=== PATIENT | male | born 1975 | race Caucasian/White ===

== ENCOUNTER 2020-11-05 11:56 | Emergency (ER) | payer OTHER, SELFPAY ==
[2020-11-05 12:07] VITALS: BP 130/74; PULSE 84; RESP 18; TEMP 36.3; O2SAT 98; BMI 32.3
== END 2020-11-05 13:15 | disposition left against medical advice (07) ==
PROVIDERS: Emergency Provider Emergency Medicine; PCP Internal Medicine
DX: M54.5 Low back pain (principal)
CPT/HCPCS: 99282

== ENCOUNTER 2022-05-06 13:49 | Emergency (ER) | payer MEDICAID, SELFPAY ==
--- NOTE | ~2022-05-06 | XR_ITS ---
EXAMINATION: XR HAND, RIGHT CLINICAL INFORMATION: Dog bite right thumb. COMPARISON: None TECHNIQUE: PA, lateral, and oblique views of the right hand. FINDINGS: No radiopaque foreign body. No air in the soft tissue. No acute osseous abnormality. No dislocation. XR/XR hand RT 2V IMPRESSION: Normal right hand.
[2022-05-06 13:54] VITALS: BP 142/103; PULSE 89; RESP 188; TEMP 36.8; O2SAT 98; BMI 39.0
[2022-05-06 14:00] VITALS: PULSE 90; O2SAT 98
[2022-05-06] MEDS: Ibuprofen 800 MG TABLET PO (14:40)
[2022-05-06] MEDS: Diphth,Pertus(ACell),Tet Adult 0.5 ML SYRINGE IM (14:41)
[2022-05-06 14:45] VITALS: BMI 40.7
--- NOTE | 2022-05-06 15:17 | ED.GENADULT ---
HPI - General Adult General Chief complaint: Animal Bite Stated complaint: DOG BITE R/HAND Time Seen by Provider: 05/06/22 13:59 Source: patient Mode of arrival: ambulatory Limitations: no limitations History of Present Illness HPI narrative: 46-year-old male presents to ED for right thumb dog bite. Patient states he was bit by his dog today. Patient states the attack was not provoked. He states patient has cancer may be affecting his brain. He states patient's dog not up-to-date with rabies Related Data Previous Rx's Medication Instructions Recorded amoxicillin 875 mg-potassium 1 tab PO Q12H 7 days #14 tabs 05/06/22 clavulanate 125 mg tablet naproxen 500 mg tablet 500 mg PO BID PRN pain 7 days #14 05/06/22 tabs Allergies Allergy/AdvReac Type Severity Reaction Status Date / Time No Known Allergies Allergy Unverified 05/22/20 15:10 Review of Systems Review of Systems: right thumb dog bite. Yes all other systems are reviewed and are negative [facility] Social History Social History Advance Directives: No Advance Directives Information Provided: No Physical Exam ED Vital Signs: Vital Signs - 24 hr 05/06/22 13:54 05/06/22 16:46 Temperature 98.3 F Pulse Rate 89 Respiratory Rate 188 H 16 Blood Pressure 142/103 H Pulse Oximetry 98 Oxygen Delivery Method Room Air BMI result Body Mass Index 40.7 Const General: cooperative, healthy appearing, comfortable, no acute distress, well developed, alert and awake Orientation/consciousness: oriented to person, oriented to place, oriented to time and patient oriented x3 HENMT Head: Yes normal to inspection, Yes No palpable skull fracture present, Yes normocephalic, Yes atraumatic and No abrasion Eyes General: appearance normal, both eyes and all related structures Neck Neck: Yes normal visual inspection, Yes full ROM, Yes no lymphadenopathy, Yes no meningeal signs, Yes trachea midline, Yes supple, No anterior neck swelling and No tender Chest Chest palpation & inspection: normal inspection of the chest and normal palpation of entire chest wall Resp Effort & Inspection: normal respiratory effort and able to speak in complete sentences Auscultation: clear to auscultation bilaterally Cardio Jugular venous distension: no JVD Heart sounds: S1 normal heart sound present and S2 normal heart sound present GI Inspection: Yes normal to inspection and No abdominal wall ecchymosis Palpation (GI): Soft to palpation, not firm, nontender, no guarding and not rigid General: No CVA tenderness and Yes no CVA tenderness Back/Spine/Pelvis Back: no CVA tenderness, No CVA tenderness and No back tenderness Skin General skin exam: no rashes or lesions noted and elasticity normal Neuro General: oriented to person, oriented to place, oriented to time, patient oriented x3, gait normal, tone normal and no meningeal signs Extrem Hand/finger images: 1. Dog bite into laceration. Tendon exposed. Not able to extend thumb above IP joint. Most likely extensor tendon injury. Capillary refills intact. Radial brachial ulnar pulse is intact. Rest of extremity normal 2. Laceration. Psych Appearance: grossly normal, well kempt and not disheveled Course Course Course Narrative: Tetanus and rabies vaccine ordered. Will consult orthopedic surgeon due to patient possibly have extensor tendon injury. Lower extremity does no fracture. Reevaluation(s) Reevaluation #1: Spoke with Orthopedic Dr. Bruner recommend loosely closing laceration with washout and discharged with antibiotics and follow-up with hand surgeon. 6 mL of 2% lidocaine used for anesthesia of right thumb. Laceration with tendon injury a cared had 3 sutures placed with size 4 nylon suture. Other laceration 3 sutures placed with size 4 nylon suture Time: 15:32 Medical Decision Making MDM Narrative Medical decision making narrative: Bug bite. Tendon injury of right thumb Discharge Plan Discharge Clinical Impression: Bite by animal, Dog bite, Injury of tendon of hand Patient Disposition: Home, Self-Care Instructions: Animal Bite (ED) Additional Instructions: History and physical exam of right thumb indicate tendon injury. You're sutures were loosely placed today so they can be reopened by hand surgeon for evaluation. Please be compliant with antibiotics. Return to [facility] for schedule rabies vaccine injection. Return to the ED for any redness, swelling, pus discharge, foul odor, fever, chills, bluish black discoloration, paralysis, numbness, severe pain, or any other concerning symptoms. 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
[2022-05-06] MEDS: Rabies Vaccine (PCEC)/PF 1 ML VIAL IM (15:49)
[2022-05-06] MEDS: Rabies Immune Globulin/PF 900 UNIT/3 ML VIAL 2648 UNIT IM (15:52)
[2022-05-06] MEDS: Lidocaine HCl 2 % MPF 5 ML VIAL 2 ML INFILTRATI ×4 (15:58)
[2022-05-06 16:46] VITALS: RESP 16
== END 2022-05-06 16:56 | disposition home or self-care (01) ==
PROVIDERS: Emergency Provider Student in an Organized Health Care Education/Training Program
DX: S61.051A Open bite of right thumb without damage to nail, initial encounter (principal); S66.221A Laceration of extensor muscle, fascia and tendon of right thumb at wrist and hand level, initial encounter; W54.0XXA Bitten by dog, initial encounter; Y93.9 Activity, unspecified; Y92.019 Unspecified place in single-family (private) house as the place of occurrence of the external cause; Y99.9 Unspecified external cause status
CPT/HCPCS: 12041; 73120; 90375; 90471; 90472; 90675; 90715; 96372; 99284

== ENCOUNTER 2022-05-11 14:30 | Outpatient (REF) | payer MEDICAID, SELFPAY | END 2022-05-11 14:31 | disposition home or self-care (01) | LOC: HO.MDS 14:30 | PROVIDERS: Visit Provider Physician Assistant | DX: Z29.14 Encounter for prophylactic rabies immune globulin (principal); S66.221D Laceration of extensor muscle, fascia and tendon of right thumb at wrist and hand level, subsequent encounter; S61.253D Open bite of left middle finger without damage to nail, subsequent encounter; W54.0XXD Bitten by dog, subsequent encounter; Z20.3 Contact with and (suspected) exposure to rabies | CPT/HCPCS: 90471; 90675 ==

== ENCOUNTER 2022-05-12 11:30 | Inpatient (IN) | payer MEDICAID, SELFPAY ==
[2022-05-12 13:23] VITALS: BMI 40.4
--- NOTE | 2022-05-12 13:45 | PHA.MEDREC ---
Pharmacy Consult ? Medication Reconciliation Pharmacy has completed the medication reconciliation. Pt picked up augmentin (#14 tabs x 7 days) and tramadol on 05/09/22 confirmed with Pharmacy.
[2022-05-12 13:50] LABS: COVID-19 Test Negative (Negative)
[2022-05-12 14:03] LABS: Creatinine Clr Calc Pharmacy 168.5; Estimated Glomerular Filt Rate > 60
[2022-05-12] MEDS: Lactated Ringers 1,000 ML 100 ML IVCONT (14:04)
[2022-05-12 14:08] VITALS: BP 130/75; PULSE 80; RESP 18; TEMP 36.3; O2SAT 96
--- NOTE | 2022-05-12 14:17 | PHA.PROG ---
Admission Date/Time: May 12, 2022 11:30 Indication: Dog bite Weight in k.7 kg Adjusted body weight in K.86 kg Eads body weight in K.3 kg Obesity Dosing Indication % IBW: 174% Serum Creatinine - Last 168 Hours 05/12/22 13:32 Creatinine 0.75 Estimated CrCl and GFR - Last 168 Hours 05/12/22 13:32 Estim Creat Clear Calc 168.5 Estimated GFR > 60 Vancomycin Loading Dose: 2000 mg Current Vancomycin Dosing Regimen: 1250 mg Q12H Date and Time for next Vancomycin Level to be drawn: 05/13 @ 1300 Pharmacist Comments on Vancomycin Plan: Patient is morbidly obese, therefore required careful monitoring. Patient scheduled to receive vancomycin 2000 mg loading dose on 05/12 @ 1400. Patient will start maintenance dose vancomycin 1250 mg Q12H on 05/13 @ 0300. Expected AUC 555 with a trough of 15.5. Trough to be drawn prior to 3rd. Trough is drawn early so that pharmacy is in house to examine level and adjust level if needed. Pharmacy will monitor renal function daily. Crystal Pearl PharmD Vancomycin dosing will take advantage of [employer] as a clinical decision support tool that uses Bayesian modeling to calculate individual patient's pharmacokinetic parameters and forecast the patient's drug concentration time course with the target goal AUC 24 range of 400 - 600 mg/L/hr.
[2022-05-12 14:18] LABS: Vancomycin Trough < 3.0 mcg/mL (10.0-20.0)
[2022-05-12 16:00] VITALS: BP 125/71; PULSE 73; RESP 18; TEMP 36.3; O2SAT 96
[2022-05-12 18:00] VITALS: BP 125/71; PULSE 73; RESP 18; TEMP 36.3; O2SAT 96
[2022-05-12] MEDS: oxyCODONE HCl Immed Release 5 MG TABLET PO ×2 (18:15→22:21)
[2022-05-12 20:00] VITALS: BP 137/83; PULSE 88; RESP 18; TEMP 36.6; O2SAT 98
[2022-05-12] MEDS: Acetaminophen 325 MG TABLET PO (22:21)
[2022-05-13] VITALS (32 sets, daily range): BP systolic 100–178; BP diastolic 65–94; PULSE 54–97; RESP 14–25; TEMP 36–36.7; O2SAT 93–99; BMI 42.4
[2022-05-13] MEDS: Lactated Ringers 1,000 ML 100 ML IVCONT ×3 (02:55→19:33)
[2022-05-13] MEDS: vancomycin HCL 1,250 MG in 0.9 % Sodium Chloride 250 ML 166.67 MG IV ×2 (02:59→17:15)
[2022-05-13 06:54] LABS: MANUAL DIFF FLAG NO
[2022-05-13 07:10] LABS: Basophils Absolute Auto 0.1 X10*3/uL (0.0-0.2); Basophils Percent Auto 0.5 % (0-2); Eosinophils Absolute Auto 0.3 X10*3/uL (0.0-0.4); Eosinophils Percent Auto 2.7 % (0-4); Hematocrit 41.9 % (42.0-52.0); Imm Gran Abs Auto 0.06 X10*3/uL (0.00-0.03); Imm Gran Pct Auto 0.6 % (0.0-0.4); Lymphocytes Absolute Auto 2.6 X10*3/uL (1.2-4.9); Lymphocytes Percent Auto 27.3 % (20-40); Mean Corpuscular Hemoglobin 26.1 pg (27.0-33.0); Mean Platelet Volume 10.5 fL (9.4-12.4); Monocytes Absolute Auto 0.9 X10*3/uL (0.1-1.2); Monocytes Percent Auto 8.8 % (2-11); Neutrophils Absolute Auto 5.8 x10*3/uL (2.0-8.3); Neutrophils Percent Auto 60.1 % (45-73); Platelet Count 278 X10*3/uL (160-400); Red Blood Count 4.99 X10*6/uL (4.60-5.80); Red Cell Distribution Width 13.6 % (11.0-16.0); White Blood Count 9.6 X10*3/uL (4.8-10.8)
[2022-05-13 07:33] LABS: Alanine Aminotransferase 15 U/L (0-40); Albumin Level 3.6 g/dL (3.5-5.0); Alkaline Phosphatase 71 U/L (39-117); Anion Gap 15 (12-20); Aspartate Amino Transferase 13 U/L (5-37); Bilirubin Total < 0.2 mg/dL (0.0-1.0); Blood Urea Nitrogen 15 mg/dL (9-16); Calcium 8.5 mg/dL (8.4-10.2); Carbon Dioxide 29 mmol/L (22-29); Chloride 102 mmol/L (96-108); Estimated Glomerular Filt Rate > 60; Glucose Random 100 mg/dL (60-115); Potassium 4.5 mmol/L (3.3-5.1); Sodium 141 mmol/L (135-145)
--- NOTE | 2022-05-13 10:43 | P.CONAN_ITS ---
HPI - Anesthesia Eval Consult details Narrative: 46 yo male patient for I&D of Right thumb PMFSH Active Problems Active Problems: All Active Problems (Updated 05/12/22 @ 09:46 by Sammy Pedro) Dog bite of right thumb with infection (Acute) Increased BMI Snores. Scheduled for sleep study in June Past Medical History Medical History Hypercholesteremia Family History Family history of problems with anesthesia: No Surgical History History of Problems with Anesthesia: No Social History Social History Household Members: Spouse and Children Housing: House Do you presently have visiting nurse or other home services: No Patient Tobacco Use Status: Never used Tobacco e-Cigarette/Vaping Use: Never Used Use of substances other than those prescribed or required for medical reasons: No Currently Displaying Signs/Symptoms of Drug Intoxication Withdrawal: No Have you been hit, kicked, punched, or otherwise hurt by someone within the past year? If so, by whom?: No Do you feel safe in your current relationship?: No Is there a partner from a previous relationship who is making you feel unsafe now?: No Are you made to feel afraid or neglected: No Are you DNR?: No Advance Directives: No Advance Directives Information Provided: No Do you have thoughts of harming others: None Recently lost weight without trying: No Nutrition Risks: No Nutritional Risk Poor oral hygiene: No Meds Allergies Allergy/AdvReac Type Severity Reaction Status Date / Time No Known Allergies Allergy Verified 05/12/22 09:03 Active Medications: Current Medications Acetaminophen (Acetaminophen 325 Mg Tablet) 325 mg PO Q4H PRN PRN Reason: Pain, Mild (Pain Scale 1-3) Last Admin: 05/12/22 22:21 Dose: 325 mg Vancomycin HCl 1,250 mg/ (Sodium Chloride) 250 mls @ 166.667 mls/hr IV Q12H REPLACED BY [facility] Last Infusion: 05/13/22 04:34 Dose: Infused Lactated Ringer's (Lr) 1,000 mls @ 100 mls/hr IVCONT .Q10H REPLACED BY [facility] Last Infusion: 05/13/22 04:34 Dose: 100 mls/hr Omeprazole (Omeprazole 20 Mg Capsule.) 20 mg PO DAILY@0630 REPLACED BY [facility] Last Admin: 05/13/22 05:56 Dose: Not Given Oxycodone HCl (Oxycodone Hcl Immed Release 5 Mg Tablet) 5 mg PO Q4H PRN PRN Reason: Pain, Moderate (Pain Scale 4-6 Last Admin: 05/12/22 22:21 Dose: 5 mg Pharmacy Consult (Consult Rx Vancomycin Dosing) 1 each MISCELLANE DAILY PRN PRN Reason: Consult order Sodium Chloride (0.9 % Sodium Chloride Flush 3 Ml Syringe) 3 ml IVFLUSH QSHIFT REPLACED BY [facility] Last Admin: 05/13/22 09:19 Dose: Not Given Home Medications Medication Instructions Recorded Confirmed Last Taken Type omeprazole 20 mg capsule,delayed 20 mg PO DAILY@62905/12/22 05/12/22 05/12/22 History release tramadol 50 mg tablet 50 mg PO Q4H PRN Pain 05/12/22 05/12/22 05/12/22 History Exam Exam Date and Time: May 13, 2022 104 Height,Weight and Vital Signs: Height 5 ft 11 in Weight 131.7 kg Last Vital Signs Temp 96.8 F 05/13/22 07:55 Pulse 54 05/13/22 07:55 Resp 16 05/13/22 07:55 BP 134/88 05/13/22 07:55 Pulse Ox 93 05/13/22 07:55 O2 Del Method 05/13/22 07:55 Vital Signs Temp Pulse Resp BP Pulse Ox O2 Del Method 05/13/22 10:58 98.1 F 72 18 127/80 99 Room Air 05/13/22 07:55 96.8 F 54 16 134/88 93 Room Air 05/13/22 04:00 97.4 F 60 17 136/67 95 Room Air 05/13/22 00:00 97 F 86 18 178/90 H 97 Room Air 05/12/22 20:00 97.9 F 88 18 137/83 98 Room Air 05/12/22 18:00 97.4 F 73 18 125/71 96 Room Air 05/12/22 16:00 97.4 F 73 18 125/71 96 Room Air 05/12/22 14:08 97.4 F 80 18 130/75 96 Room Air Pertinent Lab Results Pertinent Lab Results: Laboratory Tests 05/12/22 05/12/22 05/12/22 13:24 13:32 13:32 WBC RBC Hgb Hct MCV MCH MCHC RDW Plt Count MPV Immature Gran % (Auto) Neut % (Auto) Lymph % (Auto) [place] % (Auto) Eos % (Auto) Baso % (Auto) Lymph # (Auto) [place] # (Auto) Eos # (Auto) Baso # (Auto) Abs Immat Gran (auto) Absolute Neuts (auto) Absolute Nucleated RBC Nucleated RBC % (auto) Sodium Potassium Chloride Carbon Dioxide Anion Gap BUN Creatinine 0.75 Estim Creat Clear Calc 168.5 Estimated GFR > 60 Random Glucose Calcium Total Bilirubin AST ALT Alkaline Phosphatase Total Protein Albumin Vancomycin Trough < 3.0 L COVID-19 ([facility]) Negative COVID-19 Clin Com See Note 05/13/22 05/13/22 06:10 06:10 WBC 9.6 RBC 4.99 Hgb 13.0 L Hct 41.9 L MCV 84.0 MCH 26.1 L MCHC 31.0 RDW 13.6 Plt Count 278 MPV 10.5 Immature Gran % (Auto) 0.6 H Neut % (Auto) 60.1 Lymph % (Auto) 27.3 [place] % (Auto) 8.8 Eos % (Auto) 2.7 Baso % (Auto) 0.5 Lymph # (Auto) 2.6 [place] # (Auto) 0.9 Eos # (Auto) 0.3 Baso # (Auto) 0.1 Abs Immat Gran (auto) 0.06 H Absolute Neuts (auto) 5.8 Absolute Nucleated RBC 0.000 Nucleated RBC % (auto) 0.0 Sodium 141 Potassium 4.5 Chloride 102 Carbon Dioxide 29 Anion Gap 15 BUN 15 Creatinine 0.79 Estim Creat Clear Calc 160.0 Estimated GFR > 60 Random Glucose 100 Calcium 8.5 Total Bilirubin < 0.2 AST 13 ALT 15 Alkaline Phosphatase 71 Total Protein 6.0 L Albumin 3.6 Vancomycin Trough COVID-19 ([facility]) COVID-19 Clin Com Airway Mallampati Class: III TM Dist: >3cm Neck ROM: Full Loose/Missing/Broken Teeth: Yes (Broken back- fillings fell out) Heart: RRR Lungs: CTAB Assessment and Plan Assessment Anesthesia Assessment: Anesthesia Plan Discussed and Chart Reviewed Final Anesthetic Review Family History of Problems with Anesthesia: No History of Problems with Anesthesia: No NPO: Yes ASA Class: III Final Preanesthetic Review: No Changes in Pt Med Stat, Meds/Allgs Chart Reviewed, Consent Obtained/Reviewed and Anes Risks/Benef Reviewed Patient Risk: Intermediate Procedure Risk: Low Assessment/Block/Sedation in SS: Assess/Block/Sedation-SS Anesthetic Plan Anesthetic Plan: GA Disposition: Standard PACU and Inp. Admit - Standard Bed
--- NOTE | 2022-05-13 13:12 | P.OP_ITS ---
Operative Note Operative Note Date of Service: 05/13/22 Narrative: Operative Note Narrative: Preop diagnosis: 1. Right thumb infection status post dog bite Postop diagnosis: Same 1. Right thumb infection status post dog bite 2. Right thumb septic IP joint 3. Right thumb nail bed injury 4. Right thumb open distal phalanx tuft fracture 5. Right thumb extensor pollicis longus tendon laceration 6. Right thumb IP joints radial collateral ligament tear Procedure: 1. Right thumb infection I&D 2. Right thumb septic IP joint I&D 3. Nail plate removal 4. I and D of open distal phalanx fracture with acute infection Surgeon: Carissa Serrato MD Anesthesia: General Anesthesia Findings: 1. Right thumb infection with copious yellow creamy purulent drainage status post dog bite ?2. Right thumb septic IP joint ?3. Right thumb nail bed injury ?4. Right thumb open distal phalanx tuft fracture, with purulent drainage ?5. Right thumb extensor pollicis longus tendon laceration ?6. Right thumb IP joints radial collateral ligament tear 7. Poor cap refill/ vs eccymosis to the tip of the thumb Implants: none Tourniquet time: 0 minutes EBL: 5.0 ml Specimen: cultures of purulent drainage including from the IP joint sent x2 Drains: None Complications: None Disposition: Brought to the recovery room in stable condition Plan: - admit back to floor for IV antibiotics -wound check tomorrow - anticipate possible discharge in approx 2 days If doing well -check cultures - wound check within a few days after discharge -consult infectious disease regarding acute septic IP joint and open distal phalanx fracture, anticipate prolonged course of antibiotics - Anticipate return to the operating room perhaps in about 2 weeks for EPL tendon repair, and possible repair of the radial collateral ligament if neededand infection resolved. Indications: The patient is a 46 year old man with a right thumb infection status post dog bite . The risks and benefits of operative treatment, including but not limited to risk of damage to blood vessels, nerves, tendons, infection, recurrence, persistent pain or numbness, incomplete resolution of preoperative symptoms, or need for further surgery were discussed with the patient and they wished to proceed with surgery. Procedure: Once consent was obtained patient was brought back to the operating suite and placed in the operating table in a supine position. anesthesia was administered by the anesthesia team. A tourniquet was applied to the proximal aspect of the right upper extremity and the limb was prepped and draped in a standard surgical fashion. The tourniquet was not inflated. Sutures were removed from the wound over the dorsal aspect of the IP joint and then over the slightly more distal wound that extended around from dorsal to the radial side of the distal phalanx and IP joint. There was copious yellow creamy purulent drainage from these wounds. The IP joint was also noted to be on stable with easy opening on the radial side and dorsally. He was also noted to have a crack in the nail plate on the radial side with purulent drainage from beneath the nail plate. Unfortunately, I saw that he has a nondisplaced tuft fracture of the distal phalanx which is now considered an open infected fracture. The nail plate was then removed using a Paterson elevator. I then appreciated an oblique nailbed injury extending from the radial corner of the eponychium. Again there was creamy yellow purulence in this area and a visible and palpable defect in the cortex of the bone. He was also noted to have 2 puncture wounds on the volar aspect of the pad, 1 centered over the pad and 1 on the ulnar volar aspect of the distal phalanx. A 1 cm incision was made centered over the most central bite wound on the pad using a 15. Blade. This allowed me to dissect into the pad of the thumb where there was some watery purulent drainage. The bite wounds were carefully debrided of devitalized tissue using a 15. Blade and also iris scissors. All wounds were copiously irrigated with normal saline both using a bulb syringe and also using an Angiocath with a 10 mL syringe to appropriately irrigate small wounds and tight places. The cortical defect an open fracture were appreciated beneath the nail bed injury and this was debrided with a Paterson elevator and a small curette. The bone in the nail bed injury were also co piously irrigated with normal saline. The IP joint was copiously irrigated, and indeed the fluid passed between the more radial and more dorsal bite wounds freely. The extensor pollicis longus tendon was noted to be lacerated dorsal to the IP joint in the more dorsal bite wound. Once satisfied with our I&D the dorsal and radial bite wounds were loosely closed using some 4-0 nylon suture. These wounds were loosely closed, and the other wounds were left open to facilitate drainage. It was appreciated that the very tip of the thumb was a little more bluish purple than pink. This could be secondary to a diminished blood supply from this injury, or also perhaps secondary to the Ecchymosis from the distal phalanx tuft fracture.. a digital block was performed using some 0.5% plain ropivacaine for postop pain control. A soft dressing was then applied. The patient appears to have tolerated the procedure well and with no complications.
--- NOTE | 2022-05-13 13:12 | MHC.SHP ---
Pre-Procedural Eval Section A Date of Service: 05/13/22 The patient is an INPATIENT: Yes Changes since office visit: No Cold of Flu in the past 2 weeks, No New Medical Problems, No Changes in Medication and No Patient answered all questions The History & Physical has been completed within 30 days and I have reviewed it.: Yes Section B Chief Complaint: R thumb infection Allergies: Allergies Allergy/AdvReac Type Severity Reaction Status Date / Time No Known Allergies Allergy Verified 05/12/22 09:03 Plan I have reviewed the history and physical and performed a pertinent physical examination on my patient. No changes have occurred unless specified.
[2022-05-13 17:13] LABS: Vancomycin Trough 7.1 mcg/mL (10.0-20.0)
--- NOTE | 2022-05-13 17:26 | HE.PHANOTE ---
vancomycin dosing addendum Patient level 7.1 today. Patient's level was drawn 3 hours late because patient was in surgery. The actaully level prior to next dose is most likely higher than 7.1. Patient also only received one loading dose (2g) and one maintenance dose (1250 mg) therefore patient is not at steady state yet. Level was drawn after 2 dose for pharamcy to examine while in house. Will continue current regiment for 2 more dose then get another vancomycin level 05/14/22 @ 1500. Vancomycin times were adjust as dose was given late to allow for level to be drawn after patient was back from surgery. Patient is obese, and requires obesity dose. Vancomycin 1250 mg Q12H has an expected AUC of 432. Myke VillelaD
[2022-05-13] MEDS: Ketorolac Tromethamine 30 MG/ML VIAL 15 MG IVPUSH (18:50)
--- NOTE | 2022-05-13 19:41 | PM.CCHP ---
History of Present Illness Date of Service: 05/13/22 Attending physician on admission: Gerson Rankin Chief Complaint: Right thumb infection 46 year old male with past medical history of GERD and hypercholesterolemia who sustained a dog bite on 05/06/22 on Right thumb and was scheduled for I&D with Dr Serrato. Post surgical procedure patient lethargic, hypoxic requiring CPAP.? Patient will be admitted to ICU for acute hypoxic failure requiring CPAP? Review of Systems Review of Systems: Constitutional: No weight loss, fever, chills, weakness or fatigue. Eyes: No visual loss, blurred vision, double vision or yellow sclera ENT: No hearing loss, sneezing, congestion, runny nose or sore throat. Respiratory: No SOB. No hemoptysis. Cardiovascular:No chest pain. No palpitations. Gastrointestinal: No anorexia, nausea, vomiting or diarrhea. No abdominal pain or blood in stool. Genitourinary: No urinary frequency or incontinence. Neurologic: No headache, dizziness, syncope, unilateral weakness, ataxia, numbness or tingling in the extremities. No change in bowel or bladder control. Musculoskeletal: No muscle pain, back pain, joint pain or stiffness. Hematologic/Lymphatics: No bleeding or bruising. No painful lymph nodes. Endocrine: No reports of sweating. No cold or heat intolerance. REPLACED BY [facility] Past Medical History Medical History Hypercholesteremia Social History Social History Household Members: Spouse and Children Housing: House Do you presently have visiting nurse or other home services: No Patient Tobacco Use Status: Never used Tobacco e-Cigarette/Vaping Use: Never Used Use of substances other than those prescribed or required for medical reasons: No Currently Displaying Signs/Symptoms of Drug Intoxication Withdrawal: No Have you been hit, kicked, punched, or otherwise hurt by someone within the past year? If so, by whom?: No Do you feel safe in your current relationship?: No Is there a partner from a previous relationship who is making you feel unsafe now?: No Are you made to feel afraid or neglected: No Are you DNR?: No Advance Directives: No Advance Directives Information Provided: No Do you have thoughts of harming others: None Recently lost weight without trying: No Nutrition Risks: No Nutritional Risk Poor oral hygiene: No Meds Allergies Allergy/AdvReac Type Severity Reaction Status Date / Time No Known Allergies Allergy Verified 05/12/22 09:03 Active Medications: Current Medications Acetaminophen (Acetaminophen 325 Mg Tablet) 325 mg PO Q4H PRN PRN Reason: Pain, Mild (Pain Scale 1-3) Last Admin: 05/12/22 22:21 Dose: 325 mg Acetaminophen (Acetaminophen 325 Mg Tablet) 975 mg PO ONCE PRN PRN Reason: Pain, Mild (Pain Scale 1-3) Enoxaparin Sodium (Enoxaparin Sodium 40 Mg/0.4 Ml Syringe) 40 mg SUBCUT Q24H [facility] Vancomycin HCl 1,250 mg/ (Sodium Chloride) 250 mls @ 166.667 mls/hr IV Q12H [facility] Stop: 05/13/22 20:00 Last Infusion: 05/13/22 19:31 Dose: Infused Lactated Ringer's (Lr) 1,000 mls @ 100 mls/hr IVCONT .Q10H [facility] Last Infusion: 05/13/22 19:36 Dose: 0 mls/hr Vancomycin HCl 1,250 mg/ (Sodium Chloride) 250 mls @ 166.667 mls/hr IV Q12H [facility] Piperacillin Sod/Tazobactam (Sod 4.5 gm/ Sodium Chloride) 100 mls @ 200 mls/hr IV Q6H [facility] Omeprazole (Omeprazole 20 Mg Capsule.Dr) 20 mg PO DAILY@0630 [facility] Last Admin: 05/13/22 05:56 Dose: Not Given Oxycodone HCl (Oxycodone Hcl Immed Release 5 Mg Tablet) 5 mg PO Q4H PRN PRN Reason: Pain, Moderate (Pain Scale 4-6 Last Admin: 05/12/22 22:21 Dose: 5 mg Pharmacy Consult (Consult Rx Vancomycin Dosing) 1 each MISCELLANE DAILY PRN PRN Reason: Consult order Sodium Chloride (0.9 % Sodium Chloride Flush 3 Ml Syringe) 3 ml IVFLUSH QSHIFT [facility] Last Admin: 05/13/22 19:19 Dose: Not Given Home Medications Medication Instructions Recorded Confirmed Last Taken Type omeprazole 20 mg capsule,delayed 20 mg PO DAILY@0630 05/12/22 05/12/22 05/12/22 History release tramadol 50 mg tablet 50 mg PO Q4H PRN Pain 09/07/22 09/07/22 09/07/22 History Physical Exam Vital Signs: Vital Signs: Last Vital Signs Temp 97.7 F 05/13/22 19:30 Pulse 68 05/13/22 19:30 Resp 16 05/13/22 19:30 BP 119/82 05/13/22 19:30 Pulse Ox 97 05/13/22 19:30 O2 Del Method 05/13/22 17:30 O2 Flow Rate 4 05/13/22 16:45 BMI result Body Mass Index 40.4 Constitutional: Alert, in no distress. Sitting comfortably on the hospital bed. Mental Status: Oriented to person, place and time. Head: Normocephalic. Eyes: Pupils are equal, round and reactive to light. Extraocular muscles intact. Ear, Nose and Throat: Oropharynx clear, mucous membranes moist. Ears and nose without masses, lesions or deformities. Trachea midline. Neck: Supple, Full range of motion. Respiratory: Lungs CTA. On AVAP. No incraese work of breathing ? Cardiovascular: Sinus Rhytmn. S1 S2 regular. No murmurs, rubs or gallops. Gastrointestinal: Abdomen soft, non-tender, non-distended. Normal bowel sounds. No pulsatile mass. No hepatosplenomegaly. Genitourinary: No costovertebral angle tenderness. Neurologic: Cranial nerves II-XII grossly intact. No focal neurological deficits. Moves all extremities spontaneously. Sensation intact bilaterally. Skin: Right hand covered by surgical dressing. Musculoskeletal: No cyanosis or clubbing. No gross deformities. Normal range of motion. Heme/Lymphatics/Immun: Palpation of neck reveals no swelling or tenderness of neck nodes. Psychiatric: Normal mood and affect Results Labs CBC and Chem 7: 05/13/22 06:10 05/13/22 06:10 Labs: Laboratory Results - last 24 hr 05/13/22 05/13/22 05/13/22 06:10 06:10 16:45 MCV 84.0 MCH 26.1 L MCHC 31.0 RDW 13.6 Plt Count 278 MPV 10.5 Immature Gran % (Auto) 0.6 H Neut % (Auto) 60.1 Lymph % (Auto) 27.3 [place] % (Auto) 8.8 Eos % (Auto) 2.7 Baso % (Auto) 0.5 Lymph # (Auto) 2.6 [place] # (Auto) 0.9 Eos # (Auto) 0.3 Baso # (Auto) 0.1 Abs Immat Gran (auto) 0.06 H Absolute Neuts (auto) 5.8 Absolute Nucleated RBC 0.000 Nucleated RBC % (auto) 0.0 Anion Gap 15 Estim Creat Clear Calc 160.0 Estimated GFR > 60 Random Glucose 100 Calcium 8.5 Total Bilirubin < 0.2 AST 13 ALT 15 Alkaline Phosphatase 71 Total Protein 6.0 L Albumin 3.6 Vancomycin Trough 7.1 L Assessment and Plan (1) Dog bite of right thumb with infection: Status: Acute (2) Acute respiratory failure with hypoxemia: Status: Acute Plan 46 year old male with past medical history of GERD and hypercholesterolemia who sustained a dog bite on 05/06/22 on Right thumb and was scheduled for I&D with Dr Serrato today. Requiring CPAP for acute resp failure Neuro:?? No acute issues? Cardiac:? No acute issues? Pulmonary:?? Acute hypoxic respiratory failure- Likely from sedation. Patient much improved since arrival to ICU. Will order ABGs. Wean off as tolerated? Renal:? No acute issues? GI:? No acute issues.? Endo:? No acute issues.?? ID: Right thumb infection, from dog bite s/p I&D. Will cover with Zosyn and vanco.? Heme/Onc:?? ?No acute issues? Psych:? No acute issues? Miscellaneous:? No acute issues. Prophylaxis:? Lovenox, No GI prophylaxis at this time? Diet: ? NPO while on PAP? CODE: FULL Critical care time: 30x min of critical care time Case discussed with attending Dr Rankin Critical Care Time Critical Care Time (minutes): 30
[2022-05-13] MEDS: Enoxaparin Sodium 40 MG/0.4 ML SYRINGE SUBCUT (19:52)
[2022-05-13] MEDS: Piperacillin Sodium/Tazobactam 4.5 GM in 0.9 % Sodium Chloride 100 ML IV (19:52)
[2022-05-13 20:01] LABS: ABG Base Excess -1.3 mmol/L; ABG HCO3 22 mmol/L (22-26); ABG pCO2 34 mmHg (32-45); ABG pH 7.42 (7.35-7.45); ABG pO2 75 mmHg (83-108)
[2022-05-13 23:44] LABS: ABG Refer to POC result
[2022-05-14] VITALS (15 sets, daily range): BP systolic 123–158; BP diastolic 65–81; PULSE 57–85; RESP 15–26; TEMP 36–36.7; O2SAT 94–99; BMI 41.5
[2022-05-14] MEDS: 0.9 % Sodium Chloride Flush 3 ML SYRINGE IVFLUSH ×4 (03:43→20:34)
[2022-05-14] MEDS: Piperacillin Sodium/Tazobactam 4.5 GM in 0.9 % Sodium Chloride 100 ML IV ×3 (03:43→20:33)
[2022-05-14] MEDS: Acetaminophen 325 MG TABLET 975 MG PO (04:08)
[2022-05-14] MEDS: Omeprazole 20 MG CAPSULE.DR PO (04:28)
[2022-05-14] MEDS: vancomycin HCL 1,250 MG in 0.9 % Sodium Chloride 250 ML 166.67 MG IV (04:29)
[2022-05-14 05:42] LABS: VBG HCO3 22 mmol/L (22-26); VBG pCO2 29 mmHg; VBG pH 7.48 (7.32-7.43); VBG pO2 78 mmHg
[2022-05-14 05:44] LABS: MANUAL DIFF FLAG NO
[2022-05-14 05:48] LABS: Basophils Absolute Auto 0.1 X10*3/uL (0.0-0.2); Basophils Percent Auto 0.5 % (0-2); Eosinophils Absolute Auto 0.2 X10*3/uL (0.0-0.4); Eosinophils Percent Auto 2.3 % (0-4); Hematocrit 40.7 % (42.0-52.0); Hemoglobin 12.8 g/dl (14.0-18.0); Imm Gran Abs Auto 0.06 X10*3/uL (0.00-0.03); Imm Gran Pct Auto 0.7 % (0.0-0.4); Lymphocytes Absolute Auto 1.9 X10*3/uL (1.2-4.9); Lymphocytes Percent Auto 20.1 % (20-40); Mean Corpuscular HGB Conc 31.4 g/dl (31.0-36.0); Mean Corpuscular Hemoglobin 26.3 pg (27.0-33.0); Mean Corpuscular Volume 83.7 fL (80.0-98.0); Monocytes Absolute Auto 0.7 X10*3/uL (0.1-1.2); Monocytes Percent Auto 7.7 % (2-11); Neutrophils Absolute Auto 6.3 x10*3/uL (2.0-8.3); Neutrophils Percent Auto 68.7 % (45-73); Platelet Count 276 X10*3/uL (160-400); Red Blood Count 4.86 X10*6/uL (4.60-5.80); Red Cell Distribution Width 13.6 % (11.0-16.0); White Blood Count 9.2 X10*3/uL (4.8-10.8)
[2022-05-14 06:07] LABS: Alanine Aminotransferase 18 U/L (0-40); Albumin Level 3.4 g/dL (3.5-5.0); Alkaline Phosphatase 69 U/L (39-117); Anion Gap 16 (12-20); Aspartate Amino Transferase 14 U/L (5-37); Bilirubin Total 0.2 mg/dL (0.0-1.0); Blood Urea Nitrogen 13 mg/dL (9-16); Calcium 8.5 mg/dL (8.4-10.2); Carbon Dioxide 27 mmol/L (22-29); Chloride 103 mmol/L (96-108); Creatinine Clr Calc Pharmacy 154.1; Estimated Glomerular Filt Rate > 60; Glucose Random 98 mg/dL (60-115); Magnesium 2.1 mg/dL (1.6-2.6); Phosphorus 4.5 mg/dL (2.7-4.5); Potassium 4.6 mmol/L (3.3-5.1); Sodium 141 mmol/L (135-145); Total Protein 5.8 g/dL (6.5-8.0)
[2022-05-14 07:02] LABS: Venous Blood Gas Refer to POC result
--- NOTE | 2022-05-14 07:09 | HE.PHANOTE ---
Addendum entered by Mauricio Bauer [facility] 05/14/22 18:17: TROUGH CAME BACK AT 7.5. DOSE INCREASED TO 1500 Q 12. NEXT TROUGH AT 10 @ 1700 Original Note: RE BRIGITTEO CONTINUE CURRENT DOSE; NEXT TROUGH DUE @1500, MAY NEED TO INCREASE DOSE TO 1500 Q12H THANKS HANK
--- NOTE | 2022-05-14 08:01 | HO.POSTANES ---
Post Anesthesia Evaluation Post Anesthesia Evaluation Vital Signs: Vital Signs Temp Pulse Resp BP Pulse Ox O2 Del Method O2 Flow Rate 05/14/22 07:00 60 23 H 123/68 97 BiPAP 05/14/22 04:59 21 H 05/14/22 06:00 69 15 99 CPAP 05/14/22 04:52 62 21 H 138/76 95 CPAP 05/13/22 23:15 25 H 05/14/22 03:53 97.3 F 59 20 149/71 H 95 CPAP 05/14/22 02:55 57 23 H 95 CPAP 05/14/22 01:56 68 24 H 96 Nasal Cannula 2 05/14/22 00:53 65 21 H 140/66 H 95 CPAP 05/13/22 23:58 71 21 H 140/66 H 97 CPAP 05/13/22 23:00 70 16 99 Nasal Cannula 2 05/13/22 21:53 83 25 H 95 Nasal Cannula 2 05/13/22 21:00 75 24 H 97 Nasal Cannula 2 FiO2 05/14/22 07:00 25 05/14/22 04:59 05/14/22 06:00 28 05/14/22 04:52 28 05/13/22 23:15 05/14/22 03:53 28 05/14/22 02:55 28 05/14/22 01:56 05/14/22 00:53 28 05/13/22 23:58 28 05/13/22 23:00 05/13/22 21:53 05/13/22 21:00 Anesthesia: General LMA Mental Status: Awake Pain Control: Satisfactory Nausea/Vomiting: None Hydration: Adequate Comments: Pt remained somnolent wirh desaturations in PACU. KEPT IN ICU OVERNIGHT ON CPAP. On Cpap this morning with sat of 99%.Pt awake and answering questions .appropriately
--- NOTE | 2022-05-14 08:18 | P.PNOP_ITS ---
Subjective Subjective Date of Service: 05/14/22 Interval history: POD1 s/p right thumb I+D with Dr. Serrato. Patient is resting in bed comfortably. Post operatively the patient was hypoxic requiring CPAP and therefore transferred to the ICU. The patient is doing well this morning, pain i s well managed. Patient is requesting to go home to take care of his who has ALS. Physical Exam Vital Signs: Vital Signs: Last Vital Signs Temp 97.0 F 05/14/22 08:00 Pulse 80 05/14/22 08:00 Resp 18 05/14/22 08:00 BP 125/65 05/14/22 08:00 Pulse Ox 96 05/14/22 08:00 O2 Del Method 05/14/22 08:00 O2 Flow Rate 2 05/14/22 08:00 FiO2 25 05/14/22 07:00 BMI result Body Mass Index 42.4 Const: General: cooperative, healthy appearing and no acute distress Resp: Effort & Inspection: normal respiratory effort and able to speak in complete sentences Cardio: Rate: regular rate Peripheral pulses: Peripheral pulses 2+ throughout GI: Palpation (GI): Soft to palpation Skin: Lesions: no lesions Rashes: no rashes Extrem: Other: Right thumb incision sites are clean, dry, and intact. No active drainage. Sutures intact. Capillary refill is brisk. Procedures Date of Service Date of Service: 05/14/22 Progress Note: A&P Assessment and plan (1) Acute respiratory failure with hypoxemia: Status: Acute Assessment and Plan: Continue pain mgmnt Keep the dressings clean, dry, and intact. Continue IV abx ID consult placed Dispo planning-Pain mangement, ID consult, cultures (2) Dog bite of right thumb with infection: Status: Acute Time Spent With Patient Time: Total time spent is greater than 50% in coordination of care (as documented) at patient's floor/unit and/or counseling patient: Quality Stroke Does the patient have a stroke diagnosis?: No VTE Prior VTE?: No VTE Risk Level:: Medical - moderate - high VTE Device Contraindication: Treatment Not Indicated VTE Drug Contraindication: N/A - Med Ordered
[2022-05-14] MEDS: oxyCODONE HCl Immed Release 5 MG TABLET PO ×4 (08:26→22:21)
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
--- NOTE | 2022-05-14 13:29 | P.CDIC_ITS ---
CDI Concurrent Query Documentation Clarification: PHYSICIAN'S DOCUMENTATION REQUEST Date of Query: 05/14/22 1324 Patient Name: Lai Cox Admit Date: 05/12/22 Dear Doctor, A review of the medical record indicates additional documentation may be needed. Please review below and update the documentation accordingly. Clinical Indicators: Height: [] 5'11 Weight: [] 135.3 BMI: [] 41.6 Other Clinical Notes Supporting Significance of the BMI: Risk Factors/Clinical Indicators/Treatments If possible, please provide an associated diagnosis related to the abnormal BMI, such as: For a BMI >= 40: * Overweight * Obesity * Due to excess calories * Drug induced * Due to other cause * Severe or Morbid Obesity * With alveolar hypoventilation * Without alveolar hypoventilation Or: * BMI is not significant * Other (please specify) * Unable to determine Use of terms such as suspected, likely, concern for, or probable (associated with a specific diagnosis that is being evaluated, monitored, or treated as if it exists) are acceptable and can be coded in the inpatient setting, when documented at the time of discharge. Thank you, Eden Silveira RN Extension: [phone] Please use your independent medical judgment in providing your response. THIS QUERY IS PART OF THE PERMANENT MEDICAL RECORD Provider Response: Other (Obesity due to excess calories) Other Diagnosis: Obesity due to excess calories
--- NOTE | 2022-05-14 13:29 | MHC.CDI.CONC ---
CDI Concurrent Query Documentation Clarification: PHYSICIAN'S DOCUMENTATION REQUEST Date of Query: 05/14/22 132 Patient Name: Lai Cox Admit Date: 05/12/22 Dear Doctor, A review of the medical record indicates additional documentation may be needed. Please review below and update the documentation accordingly. Clinical Indicators: Height: [] 5'11 Weight: [] 135.3 BMI: [] 41.6 Other Clinical Notes Supporting Significance of the BMI: Risk Factors/Clinical Indicators/Treatments If possible, please provide an associated diagnosis related to the abnormal BMI, such as: For a BMI >= 40: Overweight Obesity Due to excess calories Drug induced Due to other cause Severe or Morbid Obesity With alveolar hypoventilation Without alveolar hypoventilation Or: BMI is not significant Other (please specify) Unable to determine Use of terms such as suspected, likely, concern for, or probable (associated with a specific diagnosis that is being evaluated, monitored, or treated as if it exists) are acceptable and can be coded in the inpatient setting, when documented at the time of discharge. Thank you, Eden Silveira RN Extension: [phone] Please use your independent medical judgment in providing your response. THIS QUERY IS PART OF THE PERMANENT MEDICAL RECORD Provider Response: Other (Obesity due to excess calories) Other Diagnosis: Obesity due to excess calories
--- NOTE | 2022-05-14 13:37 | P.PNCC_ITS ---
Subjective Subjective Date of Service: 05/14/22 Interval History: 46-year-old gentleman with underlying history of obesity, being worked up for JULIAN status post I&D of right thumb on 05/13/2022, postop initially requiring BiPAP support monitored in ICU overnight. No events overnight. Titrated of BiPAP. Critical Care Time (minutes): 0 Physical Exam Vital Signs: Vital Signs: Last Vital Signs Temp 97.0 F 05/14/22 08:00 Pulse 72 05/14/22 11:00 Resp 26 H 05/14/22 11:00 BP 131/77 05/14/22 09:00 Pulse Ox 97 05/14/22 11:37 O2 Del Method 05/14/22 11:37 O2 Flow Rate 2 05/14/22 08:00 FiO2 25 05/14/22 07:00 BMI result Body Mass Index 41.5 Const: General: no acute distress, alert and awake Eyes: Sclerae: sclerae normal EOM: EOMs intact bilaterally Neck: Neck: Yes no lymphadenopathy, Yes trachea midline and Yes supple Resp: Effort & Inspection: normal respiratory effort and no respiratory distress Auscultation: clear to auscultation bilaterally Cardio: Rate: regular rate Rhythm: regular rhythm Heart sounds: no gallops, no murmurs and no rubs GI: Palpation (GI): Soft to palpation and Other GI palpation findings present ( Nontender) Auscultation: normal bowel sounds Extrem: General: Yes no pedal edema, No clubbing and No cyanosis Objective Data Labs CBC & Chem 7: 05/14/22 05:36 05/14/22 05:36 Labs: Laboratory Results - last 24 hr 05/13/22 05/13/22 05/14/22 16:45 19:56 05:36 WBC RBC Hgb Hct MCV MCH MCHC RDW Plt Count MPV Immature Gran % (Auto) Neut % (Auto) Lymph % (Auto) [place] % (Auto) Eos % (Auto) Baso % (Auto) Lymph # (Auto) [place] # (Auto) Eos # (Auto) Baso # (Auto) Abs Immat Gran (auto) Absolute Neuts (auto) Absolute Nucleated RBC Nucleated RBC % (auto) O2 Saturation 95.0 ABG pH at Pt Temp 7.42 ABG pCO2 at Pt Temp 34 ABG pO2 at Pt Temp 75 L ABG HCO3 22 ABG Base Excess (Actual) -1.3 VBG pH VBG pCO2 VBG pO2 VBG HCO3 VBG O2 Saturation VBG Base Excess Sodium 141 Potassium 4.6 Chloride 103 Carbon Dioxide 27 Anion Gap 16 BUN 13 Creatinine 0.82 Estim Creat Clear Calc 154.1 Estimated GFR > 60 Random Glucose 98 Calcium 8.5 Phosphorus 4.5 Magnesium 2.1 Total Bilirubin 0.2 AST 14 ALT 18 Alkaline Phosphatase 69 Total Protein 5.8 L Albumin 3.4 L Vancomycin Trough 7.1 L 05/14/22 05/14/22 05:36 05:37 WBC 9.2 RBC 4.86 Hgb 12.8 L Hct 40.7 L MCV 83.7 MCH 26.3 L MCHC 31.4 RDW 13.6 Plt Count 276 MPV 10.0 Immature Gran % (Auto) 0.7 H Neut % (Auto) 68.7 Lymph % (Auto) 20.1 [place] % (Auto) 7.7 Eos % (Auto) 2.3 Baso % (Auto) 0.5 Lymph # (Auto) 1.9 [place] # (Auto) 0.7 Eos # (Auto) 0.2 Baso # (Auto) 0.1 Abs Immat Gran (auto) 0.06 H Absolute Neuts (auto) 6.3 Absolute Nucleated RBC 0.000 Nucleated RBC % (auto) 0.0 O2 Saturation ABG pH at Pt Temp ABG pCO2 at Pt Temp ABG pO2 at Pt Temp ABG HCO3 ABG Base Excess (Actual) VBG pH 7.48 H VBG pCO2 29 VBG pO2 78 VBG HCO3 22 VBG O2 Saturation 96.0 VBG Base Excess 0.0 Sodium Potassium Chloride Carbon Dioxide Anion Gap BUN Creatinine Estim Creat Clear Calc Estimated GFR Random Glucose Calcium Phosphorus Magnesium Total Bilirubin AST ALT Alkaline Phosphatase Total Protein Albumin Vancomycin Trough Microbiology Microbiology Results: Microbiology 05/12/22 Unknown Thumb Gram Stain - Final 05/12/22 Unknown Thumb Routine Culture - Preliminary Gram negative coccobacillus 05/12/22 Unknown Thumb Right - Thumb Gram Stain - Final 05/12/22 Unknown Thumb Right - Thumb Routine Culture - Preliminary Gram negative coccobacillus Progress Note: A&P Assessment and plan (1) Acute respiratory failure with hypoxemia: Status: Acute (2) JULIAN (obstructive sleep apnea): Status: Acute (3) Dog bite of right thumb with infection: Status: Acute Plan Assessment: 46-year-old gentleman admitted after an elective incision drainage of the right thumb by orthopedic service secondary to patient requiring BiPAP support in the immediate postop period, now titrated off. Plan: Neuro: No acute issues. Cardiac: No acute issues. Pulmonary: Underlying JULIAN with patient undergoing JULIAN workup on the ambulatory basis. Titrated of BiPAP. Continue with CPAP at 12 at night and as needed for naps. Renal: No acute issues. Endo: No acute issues. GI: No acute issues. ID: Dog bite of the right thumb status post incision and drainage. Infectious Disease service care appreciated. Continue with broad-spectrum antibiotics. Heme/Onc: No acute issues. Psych: No acute issues. Miscellaneous: No acute issues. Prophylaxis: Lovenox Diet: Regular Quality Stroke Does the patient have a stroke diagnosis?: No VTE Prior VTE?: No VTE Risk Level:: Medical - moderate - high VTE Device Contraindication: Treatment Not Indicated VTE Drug Contraindication: N/A - Med Ordered
--- NOTE | 2022-05-14 14:48 | MHC.CM.PN ---
Met w/pt to discuss d/c planning needs: pt resides w/family and is independent with all care needs. Pt without identifiable barriers to care - states he will call family for transportation home. HCP declined, PCP is Dr. Kevin at [facility]: Pt will receive his 3rd rabies vax on 05/15 here at [facility] as arranged w/MD and pharmacy. CM to follow for changes in D/C needs/plan
[2022-05-14] MEDS: Rabies Vaccine (PCEC)/PF 1 ML VIAL IM (15:26)
[2022-05-14] MEDS: Ketorolac Tromethamine 15 MG/ML VIAL IVPUSH (16:51)
[2022-05-14 18:05] LABS: Vancomycin Random 7.5 mcg/mL (15-20)
[2022-05-14] MEDS: vancomycin HCL 1,500 MG in 0.9 % Sodium Chloride 500 ML 333.33 MG IV (18:23)
[2022-05-15 01:30] VITALS: PULSE 72; O2SAT 95
[2022-05-15 03:05] VITALS: BP 138/71; PULSE 67; RESP 18; TEMP 36; O2SAT 95
[2022-05-15] MEDS: oxyCODONE HCl Immed Release 5 MG TABLET PO (04:12)
[2022-05-15] MEDS: Piperacillin Sodium/Tazobactam 4.5 GM in 0.9 % Sodium Chloride 100 ML IV (04:13)
[2022-05-15] MEDS: Omeprazole 20 MG CAPSULE.DR PO (06:43)
[2022-05-15] MEDS: vancomycin HCL 1,500 MG in 0.9 % Sodium Chloride 500 ML 333.33 MG IV (06:43)
[2022-05-15 07:10] LABS: MANUAL DIFF FLAG NO
[2022-05-15 07:13] LABS: Hematocrit 39.5 % (42.0-52.0); Hemoglobin 12.9 g/dl (14.0-18.0); Mean Corpuscular HGB Conc 32.7 g/dl (31.0-36.0); Mean Corpuscular Hemoglobin 26.7 pg (27.0-33.0); Mean Corpuscular Volume 81.6 fL (80.0-98.0); Mean Platelet Volume 10.2 fL (9.4-12.4); Platelet Count 261 X10*3/uL (160-400); Red Blood Count 4.84 X10*6/uL (4.60-5.80); Red Cell Distribution Width 13.6 % (11.0-16.0); White Blood Count 8.9 X10*3/uL (4.8-10.8)
[2022-05-15 07:19] LABS: Basophils Absolute Auto 0.1 X10*3/uL (0.0-0.2); Basophils Percent Auto 0.7 % (0-2); Eosinophils Absolute Auto 0.3 X10*3/uL (0.0-0.4); Eosinophils Percent Auto 2.8 % (0-4); Hematocrit 39.6 % (42.0-52.0); Hemoglobin 12.6 g/dl (14.0-18.0); Imm Gran Abs Auto 0.07 X10*3/uL (0.00-0.03); Imm Gran Pct Auto 0.8 % (0.0-0.4); Lymphocytes Percent Auto 22.6 % (20-40); Mean Corpuscular HGB Conc 31.8 g/dl (31.0-36.0); Mean Corpuscular Hemoglobin 26.3 pg (27.0-33.0); Mean Corpuscular Volume 82.5 fL (80.0-98.0); Mean Platelet Volume 10.1 fL (9.4-12.4); Monocytes Absolute Auto 0.7 X10*3/uL (0.1-1.2); Monocytes Percent Auto 7.4 % (2-11); Neutrophils Absolute Auto 5.9 x10*3/uL (2.0-8.3); Neutrophils Percent Auto 65.7 % (45-73); Platelet Count 269 X10*3/uL (160-400); Red Cell Distribution Width 13.5 % (11.0-16.0); White Blood Count 8.9 X10*3/uL (4.8-10.8)
[2022-05-15 07:43] LABS: Anion Gap 14 (12-20); Blood Urea Nitrogen 10 mg/dL (9-16); Calcium 8.7 mg/dL (8.4-10.2); Carbon Dioxide 29 mmol/L (22-29); Chloride 102 mmol/L (96-108); Creatinine Clr Calc Pharmacy 173.3; Estimated Glomerular Filt Rate > 60; Glucose Random 101 mg/dL (60-115); Potassium 4.6 mmol/L (3.3-5.1); Sodium 140 mmol/L (135-145)
[2022-05-15 07:45] LABS: Alanine Aminotransferase 20 U/L (0-40); Albumin Level 3.7 g/dL (3.5-5.0); Alkaline Phosphatase 70 U/L (39-117); Anion Gap 13 (12-20); Aspartate Amino Transferase 14 U/L (5-37); Bilirubin Total 0.2 mg/dL (0.0-1.0); Blood Urea Nitrogen 11 mg/dL (9-16); Calcium 8.7 mg/dL (8.4-10.2); Carbon Dioxide 29 mmol/L (22-29); Chloride 102 mmol/L (96-108); Estimated Glomerular Filt Rate > 60; Glucose Random 103 mg/dL (60-115); Magnesium 2.1 mg/dL (1.6-2.6); Phosphorus 4.5 mg/dL (2.7-4.5); Potassium 4.5 mmol/L (3.3-5.1); Sodium 139 mmol/L (135-145); Total Protein 6.1 g/dL (6.5-8.0)
[2022-05-15 08:00] VITALS: BP 151/98; PULSE 96; RESP 18; TEMP 36.6; O2SAT 96
[2022-05-15] MEDS: 0.9 % Sodium Chloride Flush 3 ML SYRINGE IVFLUSH (09:22)
--- NOTE | 2022-05-15 09:23 | PM.DS ---
DS: Providers Provider Date of Service: 05/15/22 Date of admission: 05/12/22 11:30 Primary care physician: Timbo Gracia DO Consults: 05/12/22 10:12 Consult to Infectious Diseases Routine Consulting Provider: Phoebe Alexander Reason for consultation: RIGHT THUMB INFECTION- DOG BITE 05/13/22 18:07 Consult to Infectious Diseases Stat Consulting Provider: Phoebe Alexander Reason for consultation: Dog bite open fracture thumb DS: Diagnosis Discharge Diagnosis (1) Acute respiratory failure with hypoxemia: Status: Acute (2) JULIAN (obstructive sleep apnea): Status: Acute (3) Dog bite of right thumb with infection: Status: Acute DS: Summary Hospital Course Hospital Course: The patient underwent a right thumb irrigation and debridement with nail bed removal after sustaining a dog bite, they were transferred to PACU. The patient was hypoxic requiring CPAP and therefore was transferred to the ICU for further monitoring. He was titrated off of biPAP and transferred to the floor POD2. During their stay, their vitals were stable, afebrile at 97.8. Labs were unremarkable, H/H 12.6/39.6. POD 1 they were started on Lovenox for DVT ppx. Prior to discharge, their dressing was changed, incision clean dry and intact, new dressing applied and the plan was to be discharged home with antibiotic recommendation made by infectious disease. Time Spent with Patient Time attestation: Total time spent providing and/or coordinating discharge services: Discharge coordination time: Less than 30 minutes Quality: Safe Use of Opioids Does Pt have an Active Cancer Diagnosis on the Problem List?: No Quality: Stroke Does the patient have a stroke diagnosis?: No Physical Exam Vital Signs: Vital Signs: Last Vital Signs Temp 97.8 F 05/15/22 08:00 Pulse 96 05/15/22 08:00 Resp 18 05/15/22 08:00 BP 151/98 H 05/15/22 08:00 Pulse Ox 96 05/15/22 08:00 O2 Del Method 05/15/22 08:00 O2 Flow Rate 2 05/14/22 08:00 FiO2 25 05/14/22 07:00 BMI result Body Mass Index 41.5 Const: General: cooperative, healthy appearing and no acute distress Resp: Effort & Inspection: normal respiratory effort and able to speak in complete sentences Cardio: Rate: regular rate Peripheral pulses: Peripheral pulses 2+ throughout GI: Palpation (GI): Soft to palpation Skin: Lesions: no lesions Rashes: no rashes Extrem: Other: Right thumb incision sites are clean, dry, and intact. No active drainage. Patient is able to make a fist with the index-little fingers. DS: Data Data Completed and Pending Labs on day of discharge: Laboratory Results - last 24 hr 05/14/22 05/15/22 05/15/22 17:27 05:58 05:58 WBC RBC Hgb Hct MCV MCH MCHC RDW Plt Count MPV Immature Gran % (Auto) Neut % (Auto) Lymph % (Auto) [place] % (Auto) Eos % (Auto) Baso % (Auto) Lymph # (Auto) [place] # (Auto) Eos # (Auto) Baso # (Auto) Abs Immat Gran (auto) Absolute Neuts (auto) Absolute Nucleated RBC Nucleated RBC % (auto) Sodium 139 140 Potassium 4.5 4.6 Chloride 102 102 Carbon Dioxide 29 29 Anion Gap 13 14 BUN 11 10 Creatinine 0.75 0.74 Estim Creat Clear Calc 171.0 173.3 Estimated GFR > 60 > 60 Random Glucose 103 101 Calcium 8.7 8.7 Phosphorus 4.5 Magnesium 2.1 Total Bilirubin 0.2 AST 14 ALT 20 Alkaline Phosphatase 70 Total Protein 6.1 L Albumin 3.7 Random Vancomycin 7.5 L 05/15/22 05/15/22 06:37 06:37 WBC 8.9 8.9 RBC 4.80 4.84 Hgb 12.6 L 12.9 L Hct 39.6 L 39.5 L MCV 82.5 81.6 MCH 26.3 L 26.7 L MCHC 31.8 32.7 RDW 13.5 13.6 Plt Count 269 261 MPV 10.1 10.2 Immature Gran % (Auto) 0.8 H Neut % (Auto) 65.7 Lymph % (Auto) 22.6 [place] % (Auto) 7.4 Eos % (Auto) 2.8 Baso % (Auto) 0.7 Lymph # (Auto) 2.0 [place] # (Auto) 0.7 Eos # (Auto) 0.3 Baso # (Auto) 0.1 Abs Immat Gran (auto) 0.07 H Absolute Neuts (auto) 5.9 Absolute Nucleated RBC 0.000 0.000 Nucleated RBC % (auto) 0.0 0.0 Sodium Potassium Chloride Carbon Dioxide Anion Gap BUN Creatinine Estim Creat Clear Calc Estimated GFR Random Glucose Calcium Phosphorus Magnesium Total Bilirubin AST ALT Alkaline Phosphatase Total Protein Albumin Random Vancomycin Preliminary micro results at discharge 05/12/22 Unknown Routine Culture - Preliminary Thumb Pasteurella multocida Discharge Plan Discharge Patient Disposition: Home, Self-Care Discharge Diagnosis: s/p right thumb dog bite Referrals: Timbo Gracia DO [Primary Care Provider] - 1 Week Mary Brooks PA-C [Physician Telecom Network Manager] - 1 Week (Tuesday appointment with orthopedics we will call to schedule on Tuesday morning.) Discharge Medications: New acetaminophen 325 mg Tablet 325 mg PO Q4H PRN (Reason: Pain, Mild (Pain Scale 1-3)) 30 Days Qty: 240 0RF oxycodone 5 mg Tablet 5 mg PO Q4H PRN (Reason: Pain, Moderate (Pain Scale 4-6) 7 Days Qty: 42 0RF Rx Instructions: Partial Fill upon patient request. levofloxacin 750 mg tablet 750 mg PO DAILY 14 Days Qty: 14 0RF clindamycin HCl 300 mg capsule 300 mg PO .qd 10 Days Qty: 10 0RF Continued naproxen 500 mg tablet 500 mg PO BID PRN (Reason: pain) 7 Days Qty: 14 0RF tramadol 50 mg tablet 50 mg PO Q4H PRN (Reason: Pain) omeprazole 20 mg capsule,delayed release(DR/EC) 20 mg PO DAILY@0630 Discontinued amoxicillin-pot clavulanate 875-125 mg tablet 1 tab PO Q12H 7 Days Qty: 14 0RF Rx Instructions: pt picked up on 05/09; has approximately 4 days left Discharge Orders: Discharge Order (Routine); Ordered 05/15/22 Ordered By: Mary Brooks Diet: Regular diet Activity on Discharge: Use Splints or Immobilizers Stand Alone Forms: Patient Portal Discharge page Care Plan Goals: restore fxn to right thumb clear infection Health Concerns: None Plan of Treatment: Keep splint clean, dry, and intact Elevate throughout the day No lifting Perform fist/finger exercises throughout the day Do not bathe or shower--keep splint dry Take Oxycodone 5mg tabs 1 tab by mouth every 4-6 hours as needed Levaquin and Clindamycin as directed Call [facility] orthopedics with any questions or concerns. Follow up with orthopedics on Tuesday in the office - we will call to schedule Assessment: Stable for discharge
--- NOTE | 2022-05-15 09:24 | HE.PHANOTE ---
Vancomycin Dosing Addendum Vancomycin trough scheduled 05/15/22 @1700. Continue current regimen for now
--- NOTE | 2022-05-15 09:42 | MHC.CM.PN ---
PT WILL DC HOME TODAY WITH NO SERVICES PT TO ARRANGE TRANSPORT
--- NOTE | 2022-05-15 09:45 | P.PNIM_ITS ---
Subjective Subjective Date of Service: 05/15/22 Interval History: Seen and evaluated feels comfortable, reports pain is under good control No reported other overnight events Review of Systems Review of Systems: Yes all other systems are reviewed and are negative Physical Exam Vital Signs: Vital Signs: Last Vital Signs Temp 97.8 F 05/15/22 08:00 Pulse 96 05/15/22 08:00 Resp 18 05/15/22 08:00 BP 151/98 H 05/15/22 08:00 Pulse Ox 96 05/15/22 08:00 O2 Del Method 05/15/22 08:00 O2 Flow Rate 2 05/14/22 08:00 FiO2 25 05/14/22 07:00 BMI result Body Mass Index 41.5 Const: Other: Constitutional : Alert, oriented, not in distress Neck : Normal inspection, Supple Cardiovascular : RRR, no JVP, no lower extremity edema Respiratory : fair bilateral air entry, no crackles, wheezes or rhonchi Gastrointestinal: soft, lax, Normal bowel sounds, Non tender Skin : Warm, Dry, right thumb in dressing Neurological : Alert & oriented x3, No focal deficit Objective Data Active Medications Acetaminophen (Acetaminophen 325 Mg Tablet) 325 mg PO Q4H PRN PRN Reason: Pain, Mild (Pain Scale 1-3) Last Admin: 05/12/22 22:21 Dose: 325 mg Documented By: SEVERINO Benzocaine (Throat Lozenge, Medicated Lozenge) 1 lozenge MUCOUS MEM Q2H PRN PRN Reason: Sore Throat Enoxaparin Sodium (Enoxaparin Sodium 40 Mg/0.4 Ml Syringe) 40 mg SUBCUT Q24H [facility] Last Admin: 05/14/22 18:05 Dose: Not Given Documented By: MILANA Non-Admin Reason: Patient Refused Comments: Patient has been ambulating frequently in room, refused lovenox, is afraid of needles Piperacillin Sod/Tazobactam (Sod 4.5 gm/ Sodium Chloride) 100 mls @ 200 mls/hr IV Q8H [facility] Last Infusion: 05/15/22 04:51 Dose: 0 mls/hr Documented By: CIARA Vancomycin HCl 1,500 mg/ (Sodium Chloride) 500 mls @ 333.333 mls/hr IV Q12H [facility] Last Infusion: 05/15/22 09:20 Dose: 0 mls/hr Documented By: SHREYA Ketorolac Tromethamine (Ketorolac Tromethamine 15 Mg/Ml Vial) 15 mg IVPUSH Q6H PRN PRN Reason: Pain, Moderate (Pain Scale 4-6 Last Admin: 05/14/22 16:51 Dose: 15 mg Documented By: MILANA Omeprazole (Omeprazole 20 Mg Capsule.Dr) 20 mg PO DAILY@0630 [facility] Last Admin: 05/15/22 06:43 Dose: 20 mg Documented By: CIARA Oxycodone HCl (Oxycodone Hcl Immed Release 5 Mg Tablet) 5 mg PO Q4H PRN PRN Reason: Pain, Moderate (Pain Scale 4-6 Last Admin: 05/15/22 04:12 Dose: 5 mg Documented By: CIARA Pharmacy Consult (Consult Rx Vancomycin Dosing) 1 each MISCELLANE DAILY PRN PRN Reason: Consult order Sodium Chloride (0.9 % Sodium Chloride Flush 3 Ml Syringe) 3 ml IVFLUSH [facility] Last Admin: 05/15/22 09:22 Dose: 3 ml Documented By: SHREYA Labs CBC & Chem 7: 05/15/22 06:37 05/15/22 05:58 Labs: Laboratory Results - last 24 hr 05/14/22 05/15/22 05/15/22 17:27 05:58 05:58 MCV MCH MCHC RDW Plt Count MPV Immature Gran % (Auto) Neut % (Auto) Lymph % (Auto) [place] % (Auto) Eos % (Auto) Baso % (Auto) Lymph # (Auto) [place] # (Auto) Eos # (Auto) Baso # (Auto) Abs Immat Gran (auto) Absolute Neuts (auto) Absolute Nucleated RBC Nucleated RBC % (auto) Anion Gap 13 14 Estim Creat Clear Calc 171.0 173.3 Estimated GFR > 60 > 60 Random Glucose 103 101 Calcium 8.7 8.7 Phosphorus 4.5 Magnesium 2.1 Total Bilirubin 0.2 AST 14 ALT 20 Alkaline Phosphatase 70 Total Protein 6.1 L Albumin 3.7 Random Vancomycin 7.5 L 05/15/22 05/15/22 06:37 06:37 MCV 82.5 81.6 MCH 26.3 L 26.7 L MCHC 31.8 32.7 RDW 13.5 13.6 Plt Count 269 261 MPV 10.1 10.2 Immature Gran % (Auto) 0.8 H Neut % (Auto) 65.7 Lymph % (Auto) 22.6 [place] % (Auto) 7.4 Eos % (Auto) 2.8 Baso % (Auto) 0.7 Lymph # (Auto) 2.0 [place] # (Auto) 0.7 Eos # (Auto) 0.3 Baso # (Auto) 0.1 Abs Immat Gran (auto) 0.07 H Absolute Neuts (auto) 5.9 Absolute Nucleated RBC 0.000 0.000 Nucleated RBC % (auto) 0.0 0.0 Anion Gap Estim Creat Clear Calc Estimated GFR Random Glucose Calcium Phosphorus Magnesium Total Bilirubin AST ALT Alkaline Phosphatase Total Protein Albumin Random Vancomycin Microbiology Microbiology Results: Microbiology 05/12/22 Unknown Gram Stain - Final Thumb Routine Culture - Preliminary Pasteurella multocida 05/12/22 Unknown Gram Stain - Final Thumb Right - Thumb Routine Culture - Final Pasteurella multocida Assessment and Plan (1) Dog bite of right thumb with infection: Status: Acute Plan 46 years old admitted for dog bite, developed hypoxic failure requiring BiPAP. JULIAN Fairly controlled with usage of CPAP Dog bite with thumb infection Id input appreciated Pending final cultures Orthopedic team discharging patient on Levaquin and clindamycin Oxycodone for pain management Thank you for the consult, will monitor the patient with you as needed Quality Stroke Does the patient have a stroke diagnosis?: No VTE Prior VTE?: No VTE Risk Level:: Medical - moderate - high VTE Device Contraindication: Treatment Not Indicated VTE Drug Contraindication: N/A - Med Ordered
== END 2022-05-15 12:06 | disposition home or self-care (01) | DRG 316 ==
LOC: HO.S3 05-13 08:39 → HO.ICU 05-13 18:57 → HO.S3 05-14 19:11
PROVIDERS: Internal Medicine Pulmonary Disease; Orthopaedic Surgery; Registered Nurse Community Health; Student in an Organized Health Care Education/Training Program; Admitting Provider Physician Assistant; PCP Internal Medicine; Visit Provider Physician Assistant
PROC: 0JBJ0ZZ Excision of Right Hand Subcutaneous Tissue and Fascia, Open Approach (ICD-10-PCS; principal; 2022-05-13 11:50)
DX: M00.841 Arthritis due to other bacteria, right hand (principal); J95.821 Acute postprocedural respiratory failure; S62.521B Displaced fracture of distal phalanx of right thumb, initial encounter for open fracture; S63.681A Other sprain of right thumb, initial encounter; S66.221A Laceration of extensor muscle, fascia and tendon of right thumb at wrist and hand level, initial encounter; W54.0XXA Bitten by dog, initial encounter; G47.33 Obstructive sleep apnea (adult) (pediatric); E66.9 Obesity, unspecified; Z68.41 Body mass index [BMI] 40.0-44.9, adult; K21.9 Gastro-esophageal reflux disease without esophagitis; E78.00 Pure hypercholesterolemia, unspecified; Z20.822 Contact with and (suspected) exposure to COVID-19; Z79.899 Other long term (current) drug therapy
CPT/HCPCS: 36415; 36600; 80048; 80053; 80202; 82565; 82803; 83735; 84100; 85025; 85027; 87071; 87077; 87186; 87205; 87635; 90675; 94660; 99202; J1170; J1200; J1650; J1885; J2250; J2405; J2543; J2795; J3010; J3370

== ENCOUNTER 2022-05-21 12:25 | Day surgery (SDC) | payer MEDICAID, SELFPAY ==
--- NOTE | 2022-05-20 10:28 | P.CONAN_ITS ---
Documented by User: Fiorella Bustamante NP 05/20/22 10:32 HPI - Anesthesia Eval Consult details Narrative: 46yo M for Right I&D thumb s/p thumb I&D 05/13/22 with GA-LMA 5. Postop initially requiring BiPAP support monitored in ICU overnight. ?JULIAN PMFSH Active Problems Active Problems: All Active Problems (Updated 05/19/22 @ 16:18 by Claudio Cortes) Open fracture of right thumb (Acute) Dog bite of right thumb with infection (Acute) Past Medical History Medical History Acute respiratory failure with hypoxemia Hypercholesteremia JULIAN (obstructive sleep apnea) Family History Family history of problems with anesthesia: No Surgical History History of Problems with Anesthesia: No Social History Social History Household Members: Family Housing: House Do you presently have visiting nurse or other home services: No Patient Tobacco Use Status: Former Tobacco user Quit Date: 2014 e-Cigarette/Vaping Use: Never Used service: No Current occupational status: previously employed [employer] Allergies Allergy/AdvReac Type Severity Reaction Status Date / Time No Known Allergies Allergy Verified 05/19/22 15:37 Home Medications Medication Instructions Recorded Confirmed Last Taken Type omeprazole 20 mg capsule,delayed 20 mg PO DAILY@0630 05/12/22 05/12/22 05/12/22 History release tramadol 50 mg tablet 50 mg PO Q4H PRN Pain 05/12/22 05/12/22 05/12/22 History Exam Exam Date and Time: May 20, 2022 1028 Pertinent Lab Results Pertinent Lab Results: Laboratory Tests 05/15/22 05/15/22 05:58 06:37 WBC 8.9 Hgb 12.6 L Hct 39.6 L Plt Count 269 Sodium 139 Potassium 4.5 Chloride 102 Carbon Dioxide 29 BUN 11 Creatinine 0.75 Assessment and Plan Assessment Anesthesia Assessment: Chart Reviewed Final Anesthetic Review Family History of Problems with Anesthesia: No History of Problems with Anesthesia: No Documented by User: Mariposa White MD 05/21/22 14:23 [facility] Active Problems Active Problems: All Active Problems (Updated 05/19/22 @ 16:18 by Claudio Cortes) Open fracture of right thumb (Acute) Dog bite of right thumb with infection (Acute) Snores. Awaiting sleep study in June. Post-op last week, needed respiratory support with Bipap in ICU Past Medical History Medical History Acute respiratory failure with hypoxemia Hypercholesteremia JULIAN (obstructive sleep apnea) Social History Social History Household Members: Family Housing: House Do you presently have visiting nurse or other home services: No Patient Tobacco Use Status: Former Tobacco user Quit Date: 2014 e-Cigarette/Vaping Use: Never Used service: No Current occupational status: previously employed Meds Allergies Allergy/AdvReac Type Severity Reaction Status Date / Time No Known Allergies Allergy Verified 05/19/22 15:37 Home Medications Medication Instructions Recorded Confirmed Last Taken Type omeprazole 20 mg capsule,delayed 20 mg PO DAILY@0630 05/12/22 05/12/22 05/12/22 History release tramadol 50 mg tablet 50 mg PO Q4H PRN Pain 05/12/22 05/12/22 05/12/22 History Exam Height,Weight and Vital Signs: Height 5 ft 11 in Weight 127.006 kg Vital Signs Temp Pulse Resp BP Pulse Ox O2 Del Method 05/21/22 13:37 97.0 F 71 18 132/78 97 Room Air Airway Mallampati Class: III TM Dist: >3cm Neck ROM: Full Loose/Missing/Broken Teeth: Yes (Fillings fell out of back teeth) Heart: RRR Lungs: CTAB Assessment and Plan Assessment Anesthesia Assessment: Anesthesia Plan Discussed Final Anesthetic Review NPO: Yes ASA Class: III Final Preanesthetic Review: No Changes in Pt Med Stat, Meds/Allgs Chart Reviewed, Consent Obtained/Reviewed and Anes Risks/Benef Reviewed Patient Risk: Intermediate Procedure Risk: Low Assessment/Block/Sedation in SS: Assess/Block/Sedation-SS Anesthetic Plan Anesthetic Plan: GA Disposition: Standard PACU
[2022-05-21] VITALS (8 sets, daily range): BP systolic 114–150; BP diastolic 70–89; PULSE 66–85; RESP 16–18; TEMP 36.1–36.3; O2SAT 88–100; BMI 39.0
--- NOTE | 2022-05-21 12:54 | P.OP_ITS ---
Operative Note Operative Note Date of Service: 05/21/22 Narrative: Operative Note Narrative: Preop diagnosis:? ?1. Right thumb infection status post? dog bite ?2. Right thumb septic IP joint ?3. Right thumb nail bed injury ?4. Right thumb open distal phalanx tuft fracture ?5. Right thumb extensor pollicis longus tendon laceration ?6. Right thumb IP joints radial collateral ligament tear Postop diagnosis:? Same ? Procedure:? ?1. Right thumb infection I&D ?2.? Right thumb septic IP joint I&D ?3.? Right thumb I&D gwyn Surgeon:? Carissa Serrato MD Anesthesia:? General Anesthesia? Findings:? ? purulent, but more watery drainage was found in the pad of the thumb, at the IP joint of the thumb, and in a pocket over the dorsal aspect of the proximal phalanx. Overall swelling is improving. Again there is a tear of the IP joint radial collateral ligament and of the E PL tendon at the dorsal aspect of the IP joint. Implants: ? none Tourniquet time: ? 0 minutes EBL:? 5.0 ml Specimen: ? cultures of purulent drainage From the pocket of fluid over the dorsal aspect of the proximal phalanx. Drains:? None Complications:? None Disposition:? Brought to the recovery room in stable condition Plan:? ?- wound check In clinic on Tuesday. ?- Infectious disease?consulted regarding acute septic IP joint and open distal phalanx fracture, anticipate prolonged course of antibiotics. - Continue curent PO abx as per ID recommendations ?-? Anticipate return to the operating room once the infection has cleared for EPL tendon repair, and possible repair of the radial collateral ligament if needed. This will likely not be sooner than about 4 weeks From now. Indications:? The patient is a? 46 year old? man with ? a right thumb infection status post dog bite . His 1st I&D was about a week ago.? .? The risks and benefits of operative treatment, including but not limited to risk of damage to blood vessels, nerves, tendons, infection, recurrence, persistent pain or numbness, incomplete resolution of preoperative symptoms, or need for further surgery were discussed with the patient and they wished to proceed with surgery. Procedure:? Once consent was obtained patient was brought back to the operating suite and placed in the operating table in a supine position. ? anesthesia was administered by the anesthesia team.? A tourniquet was applied to the proximal aspect of the? right upper extremity and the limb was prepped and draped in a standard surgical fashion.? The? tourniquet was not inflated. Sutures removed from the loosely closed wounds over the dorsal and radial aspect of the IP joints. The thumb was debrided of all nonviable tissue. Tip of the thumb this nice and pink today with good cap refill. The wound over the dorsal aspect of the thumb, the wound on the radial aspect of the IP joint and the wound over the pad of the thumb were all easily opened using tenotomy scissors. There was some watery drainage from each of these areas. I used a 15. Blade to extend the wound over the pad of the thumb where he had a felon. I also used a 15. Blade to make a 1.5 cm dorsal longitudinal incision over the proximal phalanx where he had some fluid accumulation. This was done to allow for better drainage postoperatively. Cultures were taken from the pocket of fluid over the dorsal aspect of the proximal phalanx. I then copiously irrigated all wounds with normal saline. The wound over the dorsal aspect of the proximal phalanx connected with the IP joint wound dorsally and then with the IP joint wound radially. I also used tenotomy scissors to assure we had good debridement of the [place] over the pad of the thumb. I removed a small crusted scab over the radial aspect of the nail bed to assure that we no longer had any drainage coming from the bone of the distal phalanx. I did not see any additional drainage there and I did copiously irrigate the bone again in this area, as when we saw this a week ago he had purulent drainage from this area. Once again the radial collateral ligament at the IP joint and the EPL tendon as it passed over the dorsal aspect of the IP joint were lacerated as seen in the previous I&D. No attempt to repair these structures will be made again today because of the presence of active infection. ? Once satisfied with our I&D the dorsal and radial bite wounds were loosely closed, each with 1 4-0 nylon suture..? These wounds were loosely closed, and the other wounds were left open to facilitate drainage. ?A digital block was performed using some 0.5% plain ropivacaine for postop pain control.? ? A soft dressing was then applied. The patient appears to have tolerated the procedure well and with no complications and all digits were well vascularized at the conclusion of the case..?
--- NOTE | 2022-05-21 14:47 | MHC.SHP ---
Pre-Procedural Eval Section A Date of Service: 05/21/22 The patient is an INPATIENT: No Changes since office visit: No Cold of Flu in the past 2 weeks, No New Medical Problems, No Changes in Medication and No Patient answered all questions The History & Physical has been completed within 30 days and I have reviewed it.: Yes Section B Chief Complaint: bite of right thumb, infection Allergies: Allergies Allergy/AdvReac Type Severity Reaction Status Date / Time No Known Allergies Allergy Verified 05/19/22 15:37 Plan I have reviewed the history and physical and performed a pertinent physical examination on my patient. No changes have occurred unless specified.
--- NOTE | 2022-05-21 17:54 | PC.NURSE ---
eating dinner meal.
== END 2022-05-21 18:23 | disposition home or self-care (01) ==
PROVIDERS: PCP Internal Medicine; Visit Provider Orthopaedic Surgery
PROC: (CPT 26011; principal; 2022-05-21 14:30)
DX: S61.051A Open bite of right thumb without damage to nail, initial encounter (principal); S62.501A Fracture of unspecified phalanx of right thumb, initial encounter for closed fracture; L08.9 Local infection of the skin and subcutaneous tissue, unspecified; W54.0XXA Bitten by dog, initial encounter; Y92.9 Unspecified place or not applicable; Y99.8 Other external cause status; G47.33 Obstructive sleep apnea (adult) (pediatric); E78.00 Pure hypercholesterolemia, unspecified; Z87.891 Personal history of nicotine dependence
CPT/HCPCS: 26011; 87071; 87205; 90471; 90675; J0171; J0295; J1885; J2250; J2405; J2795; J3010

== ENCOUNTER 2022-05-21 13:19 | Outpatient (REF) | payer MEDICAID, SELFPAY | END 2022-05-21 13:20 | disposition home or self-care (01) | LOC: HO.MDS 13:19 | PROVIDERS: Visit Provider Physician Assistant | DX: Z29.14 Encounter for prophylactic rabies immune globulin (principal); S61.051D Open bite of right thumb without damage to nail, subsequent encounter; S66.221D Laceration of extensor muscle, fascia and tendon of right thumb at wrist and hand level, subsequent encounter; W54.0XXD Bitten by dog, subsequent encounter; Z20.3 Contact with and (suspected) exposure to rabies | CPT/HCPCS: 90471; 90675 ==

== ENCOUNTER 2022-06-03 17:24 | Inpatient (IN) | payer MEDICAID, SELFPAY ==
[2022-06-03 17:31] VITALS: BP 156/97; PULSE 95; RESP 20; TEMP 37.2; O2SAT 95; BMI 37.6
[2022-06-03 17:44] LABS: MANUAL DIFF FLAG NO
[2022-06-03 17:59] LABS: Basophils Percent Auto 0.3 % (0-2); Eosinophils Absolute Auto 0.1 X10*3/uL (0.0-0.4); Eosinophils Percent Auto 1.7 % (0-4); Hematocrit 45.1 % (42.0-52.0); Hemoglobin 14.4 g/dl (14.0-18.0); Imm Gran Abs Auto 0.06 X10*3/uL (0.00-0.03); Imm Gran Pct Auto 0.8 % (0.0-0.4); Lymphocytes Absolute Auto 2.9 X10*3/uL (1.2-4.9); Lymphocytes Percent Auto 37.9 % (20-40); Mean Corpuscular HGB Conc 31.9 g/dl (31.0-36.0); Mean Corpuscular Hemoglobin 26.1 pg (27.0-33.0); Mean Corpuscular Volume 81.9 fL (80.0-98.0); Mean Platelet Volume 10.2 fL (9.4-12.4); Monocytes Absolute Auto 0.7 X10*3/uL (0.1-1.2); Monocytes Percent Auto 9.1 % (2-11); Neutrophils Absolute Auto 3.8 x10*3/uL (2.0-8.3); Neutrophils Percent Auto 50.2 % (45-73); Platelet Count 265 X10*3/uL (160-400); Red Blood Count 5.51 X10*6/uL (4.60-5.80); Red Cell Distribution Width 13.8 % (11.0-16.0); White Blood Count 7.6 X10*3/uL (4.8-10.8)
[2022-06-03 18:00] LABS: Anion Gap 19 (12-20); Blood Urea Nitrogen 13 mg/dL (9-16); Calcium 9.4 mg/dL (8.4-10.2); Carbon Dioxide 26 mmol/L (22-29); Chloride 99 mmol/L (96-108); Creatinine Clr Calc Pharmacy 136.6; Estimated Glomerular Filt Rate > 60; Glucose Random 108 mg/dL (60-115); Potassium 4.1 mmol/L (3.3-5.1); Sodium 140 mmol/L (135-145)
--- NOTE | 2022-06-03 20:56 | ED_ITS ---
HPI - Wound/Laceration General Chief Complaint: Wound/Laceration Stated Complaint: thumb infection/Dr. called Source: patient Mode of arrival: ambulatory Limitations: no limitations History of Present Illness HPI narrative: 46-year-old male presents for worsening right thumb infection after being bitten by a dog on 05/06/2022. He has had multiple courses of p.o. and IV antibiotics, and was referred to the emergency department by his hand surgeon. He does not report any fevers or chills, states that the wound is draining and not improving. Onset (ago): week(s) (4) Extremity Location: right: hand (thumb) Patient tetanus UTD: Yes Context: other (Dog bite) Associated symptoms: pain Related Data Previous Rx's Medication Instructions Recorded clindamycin HCl 300 mg capsule 300 mg PO .qd 10 days #10 caps 05/15/22 levofloxacin 750 mg tablet 750 mg PO DAILY 14 days #14 tabs 05/15/22 hydrocodone 5 mg-acetaminophen 325 1 tab PO Q4-6H PRN pain #10 tabs 05/21/22 mg tablet Allergies Allergy/AdvReac Type Severity Reaction Status Date / Time No Known Allergies Allergy Verified 05/26/22 15:59 Review of Systems Review of Systems: Constitutional: No Fever, No Chills ENT/Mouth: No Ear Pain, No Hoarseness, No sore throat Eyes: No Eye Pain, No Swelling, No Redness, No Foreign Body Cardiovascular: No Chest Pain, No SOB Respiratory: No Cough, No Dyspnea Gastrointestinal: No Nausea, No Vomiting, No Diarrhea, No abdominal Pain Genitourinary: No Dysuria, No Hematuria Musculoskeletal: positive right thumb pain, No Myalgias, No Joint Swelling Skin: No Skin lacerations, No rash Neuro: No Weakness, No Numbness, No Paresthesias, No Loss of Consciousness, No Dizziness, No Headache Psych: No Anxiety/Panic, No Depression Heme/Lymph: no easy bruising, no Lymphadenopathy Endocrine: No Polyuria, No Polydipsia Yes all other systems are reviewed and are negative [facility] Past Medical History Attestation statement: The following information was validated with the patient. Source: old records reviewed Medical History Acute respiratory failure with hypoxemia Hypercholesteremia JULIAN (obstructive sleep apnea) Social History Social History Household Members: Family Housing: House Do you presently have visiting nurse or other home services: No Patient Tobacco Use Status: Former Tobacco user Quit Date: 2014 e-Cigarette/Vaping Use: Never Used Advance Directives: No Advance Directives Information Provided: No service: No Current occupational status: previously employed Physical Exam Vital Signs: Vital Signs: Last Vital Signs Temp 98.3 F 06/03/22 22:23 Pulse 90 06/03/22 22:23 Resp 18 06/03/22 22:23 BP 145/83 H 06/03/22 22:23 Pulse Ox 95 06/03/22 22:23 O2 Del Method 06/03/22 22:23 BMI result Body Mass Index 37.6 Appearance: Alert. Oriented X3. No acute distress. Eyes: Pupils equal, round and reactive to light. ENT: Pharynx normal. Neck: Normal inspection. Neck supple. CVS: Normal heart rate and rhythm. Pulses normal. Respiratory: No respiratory distress. Breath sounds normal. Abdomen: Soft and nontender. Skin: Swollen, pink tender to palpation right thumb. Extremities: No lower extremity edema. Decreased range of motion to the right thumb secondary to swelling. Brisk capillary refill equal pulses. Neuro: No motor deficit. No sensory deficit. Course Course Course Narrative: 46-year-old male presents to the emergency department for admission for IV antibiotics and debridement of his right thumb. Patient stated that he spoke to Dr. Field on the phone, with plan for surgical debridement and washout with a PA tomorrow. A review of records indicates multiple surgical debridements, p.o. antibiotics, IV antibiotics, and prior cultures that were positive for pasteurella multocida and staphylococci pseudintermedius following a dog bite on 05/06/22. He had a septic IP joint, open distal phalanx fracture, with acute infection, unstable IP joint, and a lacerated EPL tendon. Patient was treated with Zosyn and vancomycin for this prior infection, and we will continue with that regimen. According to Dr. Serrato notes, patient has poor IV access and may require PICC line placement. 21:00 discussion with Franc Johansen, and hospitalist, plan of care is to admit for debridement and IV antibiotics. 22:04 lactic 2.5, order for 1 L normal saline. Patient is not septic and does n ot fit SIRS criteria. White count is 7.6, heart rate 95, temp 99.0 degrees, even unlabored respirations. Consultations Consultation #1: Ama Time: 21:00 Consultation #2: Franc Time: 21:00 Consultation #3: Ulysses Time: 21:00 MDM - Wound/Laceration Lab Data Result diagrams: 06/03/22 17:39 06/03/22 17:39 Labs: Lab Results 06/03/22 06/03/22 Range/Units 17:39 17:39 WBC 7.6 (4.8-10.8) X10*3/uL RBC 5.51 (4.60-5.80) X10*6/uL Hgb 14.4 (14.0-18.0) g/dl Hct 45.1 (42.0-52.0) % MCV 81.9 (80.0-98.0) fL MCH 26.1 L (27.0-33.0) pg MCHC 31.9 (31.0-36.0) g/dl RDW 13.8 (11.0-16.0) % Plt Count 265 (160-400) X10*3/uL MPV 10.2 (9.4-12.4) fL Immature Gran % (Auto) 0.8 H (0.0-0.4) % Neut % (Auto) 50.2 (45-73) % Lymph % (Auto) 37.9 (20-40) % [place] % (Auto) 9.1 (2-11) % Eos % (Auto) 1.7 (0-4) % Baso % (Auto) 0.3 (0-2) % Lymph # (Auto) 2.9 (1.2-4.9) X10*3/uL [place] # (Auto) 0.7 (0.1-1.2) X10*3/uL Eos # (Auto) 0.1 (0.0-0.4) X10*3/uL Baso # (Auto) 0.0 (0.0-0.2) X10*3/uL Abs Immat Gran (auto) 0.06 H (0.00-0.03) X10*3/uL Absolute Neuts (auto) 3.8 (2.0-8.3) x10*3/uL Absolute Nucleated RBC 0.000 (0.0-0.012) X10*3/uL Nucleated RBC % (auto) 0.0 (0.0-0.2) /100WBC Sodium 140 (135-145) mmol/L Potassium 4.1 (3.3-5.1) mmol/L Chloride 99 (96-108) mmol/L Carbon Dioxide 26 (22-29) mmol/L Anion Gap 19 (12-20) BUN 13 (9-16) mg/dL Creatinine 0.89 (0.5-1.4) mg/dL Estim Creat Clear Calc 136.6 Estimated GFR > 60 Random Glucose 108 (60-115) mg/dL Calcium 9.4 D (8.4-10.2) mg/dL Discharge Plan Discharge Clinical Impression: Dog bite of right thumb with infection Patient Disposition: Admitted As Inpatient
--- NOTE | 2022-06-03 21:51 | P.HPHOSP_ITS ---
History of Present Illness Date of Service: 06/03/22 Chief Complaint: Right thumb pain and swelling 46-year-old male with a past medical history of obesity, GERD, hyperlipidemia, JULIAN-pending sleep studies; had a history of dog bite on 05/06/2022 with resultant severe tender on, cellulitis, abscess status post I&D by Dr. Serrato; presented to the hospital with a chief complaint of worsening pain and swelling of the right thumb. Patient mentioned that he has presented to the hospital at least 4 times requiring I&D of the home. For the past few days he has been having increased pain and swelling; denies any numbness or tingling. Went to the office and subsequently sent him to the hospital for IV antibiotics. Patient denies any fever chills cough. Denies any chest pain or palpitations. Denies any GI symptoms. Review of all other systems is negative except mentioned above ER course: Per ER team patient noted the pain and swelling of his thumb, range of motion is maintained; discussed with Dr. Serrato-recommended admission to the medicine service and to continue IV antibiotics. Patient will be evaluated again in the morning for possible washout. [facility] Medical History Acute respiratory failure with hypoxemia Hypercholesteremia JULIAN (obstructive sleep apnea) Social History Household Members: Family Housing: House Do you presently have visiting nurse or other home services: No Patient Tobacco Use Status: Former Tobacco user Quit Date: 2014 e-Cigarette/Vaping Use: Never Used Advance Directives: No Advance Directives Information Provided: No service: No Current occupational status: previously employed Meds Allergies Allergy/AdvReac Type Severity Reaction Status Date / Time No Known Allergies Allergy Verified 05/26/22 15:59 Active Medications: Current Medications Vancomycin HCl (Vancomycin/Ns) 2,000 mg in 520 mls @ 260 mls/hr IV ONCE ONE Stop: 06/03/22 23:59 Pharmacy Consult (Consult Rx Vancomycin Dosing) 1 each MISCELLANE DAILY PRN PRN Reason: Consult order Physical Exam Vital Signs and Narrative: Vital Signs: Last Vital Signs Temp 99.0 F 06/03/22 17:31 Pulse 95 06/03/22 17:31 Resp 20 06/03/22 17:31 BP 156/97 H 06/03/22 17:31 Pulse Ox 95 06/03/22 17:31 O2 Del Method 06/03/22 17:31 BMI result Body Mass Index 37.6 Gen: Appears be in no acute distress HEENT: NCAT, Moist mucosa. Pulmonary: Vesicular breath sounds, fair air entry CVS: Normal S1-S2 Abdomen: BS+, Soft, Nontender Extremities: Warm well perfused; noted to have swelling in the right thumb as shown the pictures below. Range of motion maintained. Tender to palpate. Neuro: Alert and awake. Results Labs CBC and Chem 7: 06/03/22 17:39 06/03/22 17:39 Labs: Laboratory Results - last 24 hr 06/03/22 06/03/22 17:39 17:39 MCV 81.9 MCH 26.1 L MCHC 31.9 RDW 13.8 Plt Count 265 MPV 10.2 Immature Gran % (Auto) 0.8 H Neut % (Auto) 50.2 Lymph % (Auto) 37.9 [place] % (Auto) 9.1 Eos % (Auto) 1.7 Baso % (Auto) 0.3 Lymph # (Auto) 2.9 [place] # (Auto) 0.7 Eos # (Auto) 0.1 Baso # (Auto) 0.0 Abs Immat Gran (auto) 0.06 H Absolute Neuts (auto) 3.8 Absolute Nucleated RBC 0.000 Nucleated RBC % (auto) 0.0 Anion Gap 19 Estim Creat Clear Calc 136.6 Estimated GFR > 60 Random Glucose 108 Calcium 9.4 D Assessment and Plan (1) Dog bite of right thumb with infection: Status: Acute Plan 46-year-old male with a past medical history of obesity, GERD, hyperlipidemia, JULIAN-pending sleep studies; had a history of dog bite on 05/06/2022 with resultant severe tender on, cellulitis, abscess status post I&D by Dr. Serrato; presented to the hospital with a chief complaint of worsening pain and swelling of the right thumb. Right thumb cellulitis/abscess: X-ray showed no acute findings Patient had multiple I&Ds and finished course of antibiotics. Prior Cultures grew postural multocida, Staphylococcus pseudIntermediu Continue IV vancomycin and Zosyn Will also consult ID for further recommendations-duration of antibiotics; Spoke to Dr. Franc-recommended admission to Medicine Service and will be evaluated in the morning for possible washout. No acute intervention overnight. Pain control History of JULIAN: Patient mentioned that he has pending sleep studies. During the prior admission patient required CPAP. Currently denies any respiratory symptoms. Will continue to monitor. DVT prophylaxis: [facility] Code status: Full code Quality Stroke Does the patient have a stroke diagnosis?: No VTE Prior VTE?: No VTE Risk Level:: Medical - moderate - high VTE Device Contraindication: Treatment Not Indicated VTE Drug Contraindication: N/A - Med Ordered
[2022-06-03] MEDS: Morphine Sulfate 4 MG/ML CARTRIDGE IVPUSH (21:53)
[2022-06-03] MEDS: Piperacillin Sodium/Tazobactam 3.375 GM in 0.9 % Sodium Chloride 50 ML IV (22:00)
[2022-06-03 22:03] LABS: Lactic Acid 2.5 mmol/L (0.5-2.0)
[2022-06-03] MEDS: 0.9 % Sodium Chloride 1,000 ML 999 ML IVCONT (22:10)
[2022-06-03 22:23] VITALS: BP 145/83; PULSE 90; RESP 18; TEMP 36.8; O2SAT 95
[2022-06-03 22:24] LABS: COVID-19 Test Positive (Negative)
[2022-06-03] MEDS: Heparin Sodium,Porcine 5,000 UNIT/ML VIAL 5000 UNIT SUBCUT (22:42)
[2022-06-03 23:49] LABS: Reflex Lactate? Lactic Acid Added
[2022-06-03 23:54] VITALS: BP 162/114; PULSE 76; RESP 16; TEMP 36.7; O2SAT 100
[2022-06-04 00:14] VITALS: BP 134/86; PULSE 85; O2SAT 98
[2022-06-04 00:23] LABS: ~Lactic Acid-LAB USE ONLY 1.4 mmol/L (0.5-2.0)
--- NOTE | 2022-06-04 01:36 | PC.NURSE ---
pt relocated to overflow bed 1 via wheelchair by this RN.
[2022-06-04] MEDS: Piperacillin Sodium/Tazobactam 4.5 GM in 0.9 % Sodium Chloride 100 ML IV ×2 (05:17→09:24)
[2022-06-04 06:09] VITALS: BP 148/88; PULSE 74; RESP 18; TEMP 37; O2SAT 96
[2022-06-04 07:59] VITALS: BP 132/85; PULSE 62; RESP 20; TEMP 36.6; O2SAT 96
[2022-06-04 08:13] LABS: MANUAL DIFF FLAG NO
[2022-06-04 08:20] LABS: Basophils Percent Auto 0.3 % (0-2); Eosinophils Absolute Auto 0.2 X10*3/uL (0.0-0.4); Eosinophils Percent Auto 2.8 % (0-4); Imm Gran Abs Auto 0.02 X10*3/uL (0.00-0.03); Imm Gran Pct Auto 0.3 % (0.0-0.4); Lymphocytes Absolute Auto 2.3 X10*3/uL (1.2-4.9); Mean Corpuscular Hemoglobin 25.6 pg (27.0-33.0); Mean Corpuscular Volume 82.7 fL (80.0-98.0); Mean Platelet Volume 10.3 fL (9.4-12.4); Monocytes Absolute Auto 0.7 X10*3/uL (0.1-1.2); Monocytes Percent Auto 10.4 % (2-11); Neutrophils Absolute Auto 3.3 x10*3/uL (2.0-8.3); Neutrophils Percent Auto 51.2 % (45-73); Platelet Count 214 X10*3/uL (160-400); Red Blood Count 5.08 X10*6/uL (4.60-5.80); Red Cell Distribution Width 13.7 % (11.0-16.0); White Blood Count 6.5 X10*3/uL (4.8-10.8)
--- NOTE | 2022-06-04 08:39 | P.HPOP_ITS ---
History of Present Illness History of Present Illness Date of Service: 06/04/22 Chief complaint: Cellulitis Narrative: Lai Cox is a 46 year old male who presented to the ED yesterday evening after sustaining a dog bite on 05/06/2022. He went in for an I&D on 05/13/22 and again on 05/21/22 of the right thumb with Dr. Serrato. He was supposed to come to the OR on 05/28/22 for an additional I&D but the patient reported that he had conflicting events that did not allow him to do attend. For the past few days he has been having increased pain and swelling; denies any numbness or tingling. The patient was admitted to the medicine service with orthopedic consult. Of note, patient did test positive for COVID on this admission. Review of Systems Review of Systems: Yes all other systems are reviewed and are negative PMFSH Past Medical History Medical History Acute respiratory failure with hypoxemia Hypercholesteremia JULIAN (obstructive sleep apnea) Social History Social History Household Members: Spouse and Family Housing: House Do you presently have visiting nurse or other home services: No Patient Tobacco Use Status: Former Tobacco user Quit Date: 2014 e-Cigarette/Vaping Use: Never Used Use of substances other than those prescribed or required for medical reasons: No Have you been hit, kicked, punched, or otherwise hurt by someone within the past year? If so, by whom?: No Do you feel safe in your current relationship?: Yes Is there a partner from a previous relationship who is making you feel unsafe now?: No Are you made to feel afraid or neglected: No Advance Directives: No Advance Directives Information Provided: No Advance Directives on File: No Do you have thoughts of harming others: None Do you have a plan to hurt others: No Plan Recently lost weight without trying: No Nutrition Risks: No Nutritional Risk service: No Current occupational status: previously employed Meds Allergies Allergy/AdvReac Type Severity Reaction Status Date / Time No Known Allergies Allergy Verified 05/26/22 15:59 Active Medications: Current Medications Acetaminophen (Acetaminophen 325 Mg Tablet) 650 mg PO Q6H PRN PRN Reason: Pain, Mild (Pain Scale 1-3) Heparin Sodium (Porcine) (Heparin Sodium,Porcine 5,000 Unit/Ml Vial) 5,000 unit SUBCUT Q8H [facility] Last Admin: 06/04/22 05:19 Dose: Not Given Piperacillin Sod/Tazobactam (Sod 4.5 gm/ Sodium Chloride) 100 mls @ 200 mls/hr IV Q6H [facility] Last Infusion: 06/04/22 05:52 Dose: Infused Vancomycin HCl 1,250 mg/ (Sodium Chloride) 250 mls @ 166.667 mls/hr IV Q12H [facility] Melatonin (Melatonin 3 Mg Tablet) 6 mg PO BEDTIME PRN PRN Reason: Insomnia Pharmacy Consult (Consult Rx Vancomycin Dosing) 1 each MISCELLANE DAILY PRN PRN Reason: Consult order Senna (Sennosides 8.6 Mg Tablet) 17.2 mg PO BEDTIME PRN PRN Reason: Constipation Sodium Chloride (0.9 % Sodium Chloride Flush 3 Ml Syringe) 3 ml IVFLUSH QSHIFT [facility] Last Admin: 06/04/22 00:16 Dose: Not Given Home Medications Medication Instructions Recorded Confirmed Last Taken Type multivitamin 1 tab PO DAILY 06/04/22 06/04/22 Unknown History omeprazole 20 mg capsule,delayed 20 mg PO DAILY PRN Heartburn 06/04/22 06/04/22 Unknown History release Physical Exam Vital Signs: Vital Signs: Last Vital Signs Temp 97.8 F 06/04/22 07:59 Pulse 62 06/04/22 07:59 Resp 20 06/04/22 07:59 BP 132/85 06/04/22 07:59 Pulse Ox 96 06/04/22 07:59 O2 Del Method 06/04/22 07:59 BMI result Body Mass Index 37.6 Const: General: cooperative, healthy appearing and no acute distress Resp: Effort & Inspection: normal respiratory effort and able to speak in complete sentences Cardio: Rate: regular rate Peripheral pulses: Peripheral pulses 2+ throughout GI: Palpation (GI): Soft to palpation Skin: Lesions: no lesions Rashes: no rashes Extrem: Other: Right thumb edema erythema and exquisite tenderness over the IP joint. Suture intact no active drainage. No tenderness over the flexor tendon, proximal phlanc or palm. Able to perform thumb opposition and reposition but not able to actively extend the IP joint. Sensation is reportedly intact. Results Labs Result Diagrams: 06/04/22 07:37 06/03/22 17:39 Labs: Abnormal lab results 06/03/22 06/03/22 06/03/22 Range/Units 17:39 21:45 22:10 Hgb (14.0-18.0) g/dl MCH 26.1 L (27.0-33.0) pg Immature Gran % (Auto) 0.8 H (0.0-0.4) % Abs Immat Gran (auto) 0.06 H (0.00-0.03) X10*3/uL Lactic Acid 2.5 H* (0.5-2.0) mmol/L COVID-19 (GEOVANNA) Positive A (Negative) 06/04/22 Range/Units 07:37 Hgb 13.0 L (14.0-18.0) g/dl MCH 25.6 L (27.0-33.0) pg Immature Gran % (Auto) (0.0-0.4) % Abs Immat Gran (auto) (0.00-0.03) X10*3/uL Lactic Acid (0.5-2.0) mmol/L COVID-19 (GEOVANNA) (Negative) H & H 06/03/22 06/04/22 Range/Units 17:39 07:37 Hgb 14.4 13.0 L (14.0-18.0) g/dl Hct 45.1 42.0 (42.0-52.0) % All other labs normal. Assessment and Plan (1) Open fracture of right thumb: Status: Acute (2) Dog bite of right thumb with infection: Status: Acute Plan I discussed the case with Dr. Bruner and explained the extent of the injury to the patient and options available which include surgical intervention. I explained the procedure in detail along with the length of recovery and rehab course. I explained the risk, benefits and alternatives. Risk including, but not limited to infection, blood clots, bleeding, non union or malunion and nerve/tissue damage to surrounding areas. I answered all their questions and with their understanding they have consented to move forward with irrigation and debridement of the right thumb. The patient will be T&S, med clearance obtained and NPO after midnight. Patinet will need PICC line placed after surgery with IV antibiotics. Quality Stroke Does the patient have a stroke diagnosis?: No VTE Prior VTE?: No VTE Risk Level:: Medical - moderate - high VTE Device Contraindication: Treatment Not Indicated VTE Drug Contraindication: N/A - Med Ordered Procedures Date of Service Date of Service: 06/04/22
[2022-06-04 08:44] LABS: Anion Gap 12 (12-20); Blood Urea Nitrogen 11 mg/dL (9-16); Calcium 8.4 mg/dL (8.4-10.2); Carbon Dioxide 26 mmol/L (22-29); Chloride 104 mmol/L (96-108); Creatinine Clr Calc Pharmacy 162.1; Estimated Glomerular Filt Rate > 60; Glucose Random 120 mg/dL (60-115); Potassium 3.9 mmol/L (3.3-5.1); Sodium 138 mmol/L (135-145)
--- NOTE | 2022-06-04 08:47 | PHA.MEDREC ---
Pharmacy Consult ? Medication Reconciliation Pharmacy has completed the medication reconciliation. Pt states he is supposed to be taking a cholesterol medication but has not taken it in weeks. Unsure of the name
[2022-06-04] MEDS: 0.9 % Sodium Chloride Flush 3 ML SYRINGE IVFLUSH (09:25)
[2022-06-04] MEDS: vancomycin HCL 1,250 MG in 0.9 % Sodium Chloride 250 ML 166.67 MG IV (11:00)
--- NOTE | 2022-06-04 11:09 | HO.PM.IMPN ---
Subjective Subjective Date of Service: 06/04/22 Interval History: Seen in f/u for finger abscess interval history: still has some redness in the digit but thinks it is better Review of Systems no fever pain in the affected finger Physical Exam Vital Signs: Vital Signs: Last Vital Signs Temp 97.8 F 06/04/22 07:59 Pulse 62 06/04/22 07:59 Resp 20 06/04/22 07:59 BP 132/85 06/04/22 07:59 Pulse Ox 96 06/04/22 07:59 O2 Del Method 06/04/22 07:59 BMI result Body Mass Index 37.6 Resp: Effort & Inspection: normal respiratory effort and able to speak in complete sentences Cardio: Rate: regular rate Peripheral pulses: Peripheral pulses 2+ throughout GI: Palpation (GI): Soft to palpation Skin: Lesions: no lesions Rashes: no rashes Extrem: Other: Right thumb edema erythema and exquisite tenderness over the IP joint. Suture intact no active drainage. No tenderness over the flexor tendon, proximal phlanc or palm. Able to perform thumb opposition and reposition but not able to actively extend the IP joint. Sensation is reportedly intact. Objective Data Active Medications Acetaminophen (Acetaminophen 325 Mg Tablet) 650 mg PO Q6H PRN PRN Reason: Pain, Mild (Pain Scale 1-3) Heparin Sodium (Porcine) (Heparin Sodium,Porcine 5,000 Unit/Ml Vial) 5,000 unit SUBCUT Q8H [facility] Last Admin: 06/04/22 05:19 Dose: Not Given Documented By: NEPTALI Non-Admin Reason: pre pop Piperacillin Sod/Tazobactam (Sod 4.5 gm/ Sodium Chloride) 100 mls @ 200 mls/hr IV Q6H [facility] Last Infusion: 06/04/22 10:33 Dose: 0 mls/hr Documented By: STEPH Vancomycin HCl 1,250 mg/ (Sodium Chloride) 250 mls @ 166.667 mls/hr IV Q12H [facility] Melatonin (Melatonin 3 Mg Tablet) 6 mg PO BEDTIME PRN PRN Reason: Insomnia Pharmacy Consult (Consult Rx Vancomycin Dosing) 1 each MISCELLANE DAILY PRN PRN Reason: Consult order Senna (Sennosides 8.6 Mg Tablet) 17.2 mg PO BEDTIME PRN PRN Reason: Constipation Sodium Chloride (0.9 % Sodium Chloride Flush 3 Ml Syringe) 3 ml IVFLUSH QSHIFT [facility] Last Admin: 06/04/22 09:25 Dose: 3 ml Documented By: STEPH Labs CBC & Chem 7: 06/04/22 07:37 06/04/22 07:37 Labs: Laboratory Results - last 24 hr 06/03/22 06/03/22 06/03/22 17:39 17:39 21:45 MCV 81.9 MCH 26.1 L MCHC 31.9 RDW 13.8 Plt Count 265 MPV 10.2 Immature Gran % (Auto) 0.8 H Neut % (Auto) 50.2 Lymph % (Auto) 37.9 Smith % (Auto) 9.1 Eos % (Auto) 1.7 Baso % (Auto) 0.3 Lymph # (Auto) 2.9 Smith # (Auto) 0.7 Eos # (Auto) 0.1 Baso # (Auto) 0.0 Abs Immat Gran (auto) 0.06 H Absolute Neuts (auto) 3.8 Absolute Nucleated RBC 0.000 Nucleated RBC % (auto) 0.0 Anion Gap 19 Estim Creat Clear Calc 136.6 Estimated GFR > 60 Random Glucose 108 Lactic Acid 2.5 H* Lactic Acid F/U @ 2Hr Calcium 9.4 D COVID-19 (GEOVANNA) COVID-19 US Toxicology Com 06/03/22 06/04/22 06/04/22 22:10 00:05 07:37 MCV 82.7 MCH 25.6 L MCHC 31.0 RDW 13.7 Plt Count 214 MPV 10.3 Immature Gran % (Auto) 0.3 Neut % (Auto) 51.2 Lymph % (Auto) 35.0 Smith % (Auto) 10.4 Eos % (Auto) 2.8 Baso % (Auto) 0.3 Lymph # (Auto) 2.3 Smith # (Auto) 0.7 Eos # (Auto) 0.2 Baso # (Auto) 0.0 Abs Immat Gran (auto) 0.02 Absolute Neuts (auto) 3.3 Absolute Nucleated RBC 0.000 Nucleated RBC % (auto) 0.0 Anion Gap Estim Creat Clear Calc Estimated GFR Random Glucose Lactic Acid Lactic Acid F/U @ 2Hr 1.4 Calcium COVID-19 (GEOVANNA) Positive A COVID-19 Clin Com See Note 06/04/22 07:37 MCV MCH MCHC RDW Plt Count MPV Immature Gran % (Auto) Neut % (Auto) Lymph % (Auto) Smith % (Auto) Eos % (Auto) Baso % (Auto) Lymph # (Auto) Smith # (Auto) Eos # (Auto) Baso # (Auto) Abs Immat Gran (auto) Absolute Neuts (auto) Absolute Nucleated RBC Nucleated RBC % (auto) Anion Gap 12 Estim Creat Clear Calc 162.1 Estimated GFR > 60 Random Glucose 120 H Lactic Acid Lactic Acid F/U @ 2Hr Calcium 8.4 D COVID-19 (GEOVANNA) COVID-19 Clin Com Assessment and Plan (1) Dog bite of right thumb with infection: Status: Acute Plan 46 year old male who presented to the ED yesterday evening after sustaining a dog bite on 05/06/2022. He went in for an I&D on 05/13/22 and again on 05/21/22 of the right thumb with Dr. Serrato. He was supposed to come to the OR on 05/28/22 for an additional I&D but the patient reported that he had conflicting events that did not allow him to do attend. For the past few days he has been having increased pain and swelling and has cellulitis and abscess Right thumb cellulitis/abscess steming from complication from dog bite as above, with multiple I and D previously X-ray showed no acute findings Prior Cultures grew postural multocida, Staphylococcus pseudIntermediu Continue IV vancomycin and Zosyn -Ortho considering I and D again--but postponed -ID consult--pending The recommendation was for patient to get shelter IV antibitiocs and therefore needed a PICC line placed but could not be done today and probably not over the weekend and he didn't want to stay in the hospital beyond today and elected to leave against medical advise. He was aware that his infection could get worse without IV antibiotics potentially lead to sepsis and even , he understood this and was taking my chances He was of sound mind, alert oriented to self, place and time. He further understands that he may return to the hospital any time. I proposed oral antibiotics (Doxy and Augmentin) as next best alternative and he was agreable and prescription sent to Pharmacy History of JULIAN: Patient mentioned that he has pending sleep studies. During the prior admission patient required CPAP. Currently denies any respiratory symptoms. Will continue to monitor. DVT prophylaxis: [facility] Code status: Full code Quality Stroke Does the patient have a stroke diagnosis?: No VTE Prior VTE?: No VTE Risk Level:: Medical - moderate - high VTE Device Contraindication: Treatment Not Indicated VTE Drug Contraindication: N/A - Med Ordered
[2022-06-04 11:44] VITALS: BP 138/88; PULSE 71; RESP 18; TEMP 36.2; O2SAT 98
--- NOTE | 2022-06-04 13:12 | MHC.CM.PN ---
Patient is Covid positive; CM spoke over the phone with him @ [phone]. Patient lives in a house with his , 18 year old Daughter and 23 year old Step Son and he is functionally independent and working. Home self care is the goal and CM has initiated and will follow for dc planning. Patient received no Covid vax and his PCP is DR. Jay Cutler from [facility].
--- NOTE | 2022-06-04 17:18 | P.DS_ITS ---
DS: Providers Provider Date of Service: 06/04/22 Date of admission: 06/03/22 21:45 Primary care physician: Timbo Gracia DO Consults: 06/03/22 21:00 Consult to Orthopedics Stat Consulting Provider: Kiran Bruner Reason for consultation: thumb infection 06/04/22 14:01 Consult to Infectious Diseases Stat Consulting Provider: Phoebe Alexander Reason for consultation: right tumb infection s/p dog bite with I&D x2 DS: Diagnosis Discharge Diagnosis (1) Dog bite of right thumb with infection: Status: Acute DS: Summary Hospital Course Hospital Course: 46 year old male who presented to the ED yesterday evening after sustaining a dog bite on 05/06/2022. He went in for an I&D on 05/13/22 and again on 05/21/22 of the right thumb with Dr. Serrato. He was supposed to come to the OR on 05/28/22 for an additional I&D but the patient reported that he had conflicting events that did not allow him to do attend. For the past few days he has been having increased pain and swelling and has cellulitis and abscess Right thumb cellulitis/abscess steming from complication from dog bite as above, with multiple I and D previously X-ray showed no acute findings Prior Cultures grew postural multocida, Staphylococcus pseudIntermediu was on IV vancomycin and Zosyn -Ortho considerws I and D again--but postponed -ID consul was pending Ultimately, the recommendation was for patient to get usp IV antibitiocs and therefore needed a PICC line placed but could not be done today and probably not over the weekend and he didn't want to stay in the hospital beyond today and elected to leave against medical advise. He was aware that his infection could get worse without IV antibiotics potentially lead to sepsis and even , he understood this and was taking my chances He was of sound mind, alert oriented to self, place and time. He further understands that he may return to the hospital any time. I proposed oral antibiotics (Doxy and Augmentin) as next best alternative and he was agreable and prescription sent to Pharmacy. Time Spent with Patient Time attestation: Total time spent providing and/or coordinating discharge services: Discharge coordination time: Greater than 30 minutes Quality: Safe Use of Opioids Does Pt have an Active Cancer Diagnosis on the Problem List?: No Quality: Stroke Does the patient have a stroke diagnosis?: No Physical Exam Vital Signs: Vital Signs: Last Vital Signs Temp 97.1 F 06/04/22 11:44 Pulse 71 06/04/22 11:44 Resp 18 06/04/22 11:44 BP 138/88 06/04/22 11:44 Pulse Ox 98 06/04/22 11:44 O2 Del Method 06/04/22 11:44 BMI result Body Mass Index 37.6 DS: Data Data Completed and Pending Completed studies during hospitalization [Text1]: Procedures Excision of Right Hand Subcutaneous Tissue and Fascia, Open Approach (05/12/22) Resection of Finger Nail, External Approach (05/12/22) Labs on day of discharge: Laboratory Results - last 24 hr 06/03/22 06/03/22 06/03/22 17:39 17:39 21:45 WBC 7.6 RBC 5.51 Hgb 14.4 Hct 45.1 MCV 81.9 MCH 26.1 L MCHC 31.9 RDW 13.8 Plt Count 265 MPV 10.2 Immature Gran % (Auto) 0.8 H Neut % (Auto) 50.2 Lymph % (Auto) 37.9 [place] % (Auto) 9.1 Eos % (Auto) 1.7 Baso % (Auto) 0.3 Lymph # (Auto) 2.9 [place] # (Auto) 0.7 Eos # (Auto) 0.1 Baso # (Auto) 0.0 Abs Immat Gran (auto) 0.06 H Absolute Neuts (auto) 3.8 Absolute Nucleated RBC 0.000 Nucleated RBC % (auto) 0.0 Sodium 140 Potassium 4.1 Chloride 99 Carbon Dioxide 26 Anion Gap 19 BUN 13 Creatinine 0.89 Estim Creat Clear Calc 136.6 Estimated GFR > 60 Random Glucose 108 Lactic Acid 2.5 H* Lactic Acid F/U @ 2Hr Calcium 9.4 D COVID-19 (GEOVANNA) COVID-19 Clin Com 06/03/22 06/04/22 06/04/22 22:10 00:05 07:37 WBC 6.5 RBC 5.08 Hgb 13.0 L Hct 42.0 MCV 82.7 MCH 25.6 L MCHC 31.0 RDW 13.7 Plt Count 214 MPV 10.3 Immature Gran % (Auto) 0.3 Neut % (Auto) 51.2 Lymph % (Auto) 35.0 [place] % (Auto) 10.4 Eos % (Auto) 2.8 Baso % (Auto) 0.3 Lymph # (Auto) 2.3 [place] # (Auto) 0.7 Eos # (Auto) 0.2 Baso # (Auto) 0.0 Abs Immat Gran (auto) 0.02 Absolute Neuts (auto) 3.3 Absolute Nucleated RBC 0.000 Nucleated RBC % (auto) 0.0 Sodium Potassium Chloride Carbon Dioxide Anion Gap BUN Creatinine Estim Creat Clear Calc Estimated GFR Random Glucose Lactic Acid Lactic Acid F/U @ 2Hr 1.4 Calcium COVID-19 (GEOVANNA) Positive A COVID-19 [employer] Com See Note 06/04/22 07:37 WBC RBC Hgb Hct MCV MCH MCHC RDW Plt Count MPV Immature Gran % (Auto) Neut % (Auto) Lymph % (Auto) [place] % (Auto) Eos % (Auto) Baso % (Auto) Lymph # (Auto) [place] # (Auto) Eos # (Auto) Baso # (Auto) Abs Immat Gran (auto) Absolute Neuts (auto) Absolute Nucleated RBC Nucleated RBC % (auto) Sodium 138 Potassium 3.9 Chloride 104 Carbon Dioxide 26 Anion Gap 12 BUN 11 Creatinine 0.75 Estim Creat Clear Calc 162.1 Estimated GFR > 60 Random Glucose 120 H Lactic Acid Lactic Acid F/U @ 2Hr Calcium 8.4 D COVID-19 (GEOVANNA) COVID-19 BAC ON TRAC Discharge Plan Discharge Anticipated Discharge Date/Time: 06/04/22 17:04 Patient Disposition: Home, Self-Care Discharge Diagnosis: cellulitis of the left thumb Referrals: Timbo Gracia DO [Primary Care Provider] - 1 Week Discharge Medications: New doxycycline hyclate 100 mg tablet 100 mg PO BID 14 Days Qty: 28 0RF amoxicillin-pot clavulanate 875-125 mg tablet 1 tab PO BID Qty: 28 0RF Continued multivitamin Tablet 1 tab PO DAILY omeprazole 20 mg Capsule,Delayed Release(Dr/Ec) 20 mg PO DAILY PRN (Reason: Heartburn) Discharge Orders: Discharge Order (Routine); Ordered 06/04/22 Ordered By: Lai Landrum Diet: Advance to usual diet Activity on Discharge: As tolerated Stand Alone Forms: Patient Portal Discharge page Care Plan Goals: left ama Health Concerns: left ama Plan of Treatment: left ama Assessment: left ama
== END 2022-06-04 15:45 | disposition home or self-care (01) | DRG 383 ==
LOC: HO.ED 22:13 → HO.EDOVER 22:16 → HO.IMC 06-04 05:01
PROVIDERS: Nurse Practitioner Family; Admitting Provider Hospitalist; Emergency Provider Emergency Medicine; PCP Internal Medicine; Visit Provider Internal Medicine
DX: L03.011 Cellulitis of right finger (principal); U07.1 COVID-19; E78.5 Hyperlipidemia, unspecified; L02.511 Cutaneous abscess of right hand; K21.9 Gastro-esophageal reflux disease without esophagitis; G47.33 Obstructive sleep apnea (adult) (pediatric); Z79.899 Other long term (current) drug therapy
CPT/HCPCS: 36415; 80048; 83605; 85025; 87040; 87635; 96361; 96374; 99219; 99284; 99285; J2270; J2543; J3370

== ENCOUNTER 2022-06-15 13:14 | Outpatient (REF) | payer MEDICAID, SELFPAY ==
--- NOTE | ~2022-06-15 | XR_ITS ---
EXAMINATION: XR HAND, RIGHT CLINICAL INFORMATION: Pain COMPARISON: Previous x-ray May 2022 TECHNIQUE: PA, lateral, and oblique views of the right hand. FINDINGS: There is flexion at the IP joint of the thumb. There is significant soft tissue swelling. There is irregularity of the IP joint with bone loss and osteopenia. Septic arthritis or osteomyelitis should be considered. There is also irregularity of the distal tuft of the thumb also questionable for osteomyelitis. No soft tissue foreign body is seen. XR/XR hand RT min 3V IMPRESSION: Significant soft tissue swelling of the thumb. Question septic arthritis/osteomyelitis of the IP joint of the thumb. Findings will be communicated by the [place] work flow anesthetic assistant.
== END 2022-06-15 13:15 | disposition home or self-care (01) ==
LOC: HO.HOSX 13:14
PROVIDERS: Visit Provider Physician Assistant
DX: M79.641 Pain in right hand (principal)
CPT/HCPCS: 73130

== ENCOUNTER 2022-06-28 08:02 | Inpatient (IN) | payer MEDICAID, SELFPAY ==
[2022-06-22 10:35] VITALS: BMI 38.0
--- NOTE | 2022-06-25 08:42 | P.CONAN_ITS ---
Documented by User: Fiorella Bustamante NP 06/25/22 08:53 HPI - Anesthesia Eval Consult details Narrative: 46yo M for Right Thumb irrigation and Debridement of Skin s/p I&D 05/21/22 with [facility]-LMA 5 Hx of ICU post op for resp failure r/t JULIAN PMFSH Active Problems Active Problems: All Active Problems (Updated 06/22/22 @ 10:31 by Mahsa Yeager RN) Dog bite of right thumb with infection (Acute) Septic joint of right hand (Acute) Past Medical History Medical History Acute respiratory failure with hypoxemia History of COVID-19 Hypercholesteremia Open fracture of right thumb JULIAN (obstructive sleep apnea) Family History Family history of problems with anesthesia: No Surgical History Surgical History History of incision and drainage History of Problems with Anesthesia: No Social History Social History Household Members: Spouse and Family Housing: House Do you presently have visiting nurse or other home services: No Patient Tobacco Use Status: Former Tobacco user Quit Date: 2017 e-Cigarette/Vaping Use: Never Used Use of substances other than those prescribed or required for medical reasons: Yes Substance Use Frequency: Daily Are you DNR?: No Advance Directives: No Advance Directives Information Provided: No service: No Current occupational status: employed Meds Allergies Allergy/AdvReac Type Severity Reaction Status Date / Time No Known Allergies Allergy Verified 06/15/22 12:52 Home Medications Medication Instructions Recorded Confirmed Last Taken Type multivitamin 1 tab PO DAILY 06/04/22 06/28/22 Unknown History omeprazole 20 mg capsule,delayed 20 mg PO DAILY PRN Heartburn 06/04/22 06/28/22 Unknown History release Exam Exam Date and Time: June 25, 2022 0842 Height,Weight and Vital Signs: Height 5 ft 11 in Weight 123.831 kg Pertinent Lab Results Pertinent Lab Results: Laboratory Tests 06/04/22 06/04/22 07:37 07:37 WBC 6.5 Hgb 13.0 L Hct 42.0 Plt Count 214 Sodium 138 Potassium 3.9 Chloride 104 Carbon Dioxide 26 BUN 11 Creatinine 0.75 Assessment and Plan Assessment Anesthesia Assessment: Chart Reviewed Final Anesthetic Review Family History of Problems with Anesthesia: No History of Problems with Anesthesia: No Documented by User: Susana Ricardo MD 06/28/22 09:27 [facility] Past Medical History Medical History Acute respiratory failure with hypoxemia History of COVID-19 Hypercholesteremia Open fracture of right thumb JULIAN (obstructive sleep apnea) Surgical History Surgical History History of incision and drainage Social History Social History Household Members: Spouse and Family Housing: House Do you presently have visiting nurse or other home services: No Patient Tobacco Use Status: Former Tobacco user Quit Date: 2017 e-Cigarette/Vaping Use: Never Used Use of substances other than those prescribed or required for medical reasons: Yes Substance Use Frequency: Daily Are you DNR?: No Advance Directives: No Advance Directives Information Provided: No service: No Current occupational status: employed Meds Allergies Allergy/AdvReac Type Severity Reaction Status Date / Time No Known Allergies Allergy Verified 06/15/22 12:52 Home Medications Medication Instructions Recorded Confirmed Last Taken Type multivitamin 1 tab PO DAILY 06/04/22 06/28/22 Unknown History omeprazole 20 mg capsule,delayed 20 mg PO DAILY PRN Heartburn 06/04/22 06/28/22 Unknown History release Exam Airway Mallampati Class: III TM Dist: >3cm Neck ROM: Limited Loose/Missing/Broken Teeth: Yes (Left upper central incisor chipped) Heart: RRR Lungs: CTA Assessment and Plan Assessment Anesthesia Assessment: Anesthesia Plan Discussed Final Anesthetic Review NPO: Yes ASA Class: III Final Preanesthetic Review: Meds/Allgs Chart Reviewed, Consent Obtained/Reviewed and Anes Risks/Benef Reviewed Patient Risk: Intermediate Procedure Risk: Low Anesthetic Plan Anesthetic Plan: GA Disposition: Standard PACU
[2022-06-28] VITALS (16 sets, daily range): BP systolic 129–173; BP diastolic 48–91; PULSE 63–98; RESP 10–20; TEMP 36.1–36.8; O2SAT 92–100
--- NOTE | ~2022-06-28 | FL_ITS ---
EXAMINATION: XR FL WITH IMAGES CLINICAL INFORMATION: Thumb irrigation and debridement. COMPARISON: None. TECHNIQUE: Fluoroscopy performed by Dr. Carissa Serrato. Fluoroscopy Time: 5.6 seconds. Cumulative Dose: 0.13 mGy. DAP: 0.008 Gycm2. Images: 7. FINDINGS: Fluoroscopy images demonstrate amputation of the distal tuft of the 3rd finger. FL/FL guidance in OR IMPRESSION: Fluoroscopy guidance for thumb irrigation and debridement.
--- NOTE | ~2022-06-28 | FL_ITS ---
EXAMINATION: XR FLUOROSCOPY WITH IMAGES CLINICAL INFORMATION: Right thumb debridement. COMPARISON: Previous x-ray most recent 06/15/2022. TECHNIQUE: Fluoroscopy performed by Dr. Carissa Serrato. Fluoroscopy time: 14 seconds. Cumulative Dose: 0.3 mGy. DAP: 0.02 Gy-cm2. Images: 7. FINDINGS: Fluoroscopy guidance for right thumb debridement. Images demonstrate multiple surgical instruments adjacent to the distal phalanx of the thumb. Final image demonstrates surgical instrument projecting over the dorsal IP joint of the thumb. AP images demonstrate question of bone loss or lucency in the distal tuft of the thumb. FL/FL guidance in OR IMPRESSION: Fluoroscopy guidance for right thumb debridement.
--- OUTSIDE RECORDS SUMMARY | 2022-06-28 08:08 | XMS_ITS | Continuity of Care Document ---
:1975 Author Organization [facility] Address [address] [place] [address]- Care Team Providers Name Role Phone Jay Cutler MD Primary Care Physician Encounter [facility] NBR [id number] Date(s): 11/09/21 - 12/12/21 [facility] [address] [place] [address]- Attending Physician: Jay Cutler MD Allergies, Adverse Reactions, Alerts No Known Allergies Medications atorvastatin 10 mg oral tablet 1 tablet = 10 mg, By Mouth, Daily, # 90 tablet, 3 Refills, Maintenance, 10/21/21 11:12:00 EST, [facility], Partial fill upon patient request if the prescription is for a schedule II opioid drug. Start Date: 10/21/21 Status: Orderedomeprazole 20 mg oral enteric coated capsule 1 capsule = 20 mg, By Mouth, Daily, # 30 capsule, 3 Refills, Maintenance, 09/14/21 16:04:00 EST, EC Capsule, [facility], Partial fill upon patient request if the prescription is for a scheduleII opioid drug. Start Date: 09/14/21 Stop Date: 01/12/22 Status: Ordered Social History Social History Type Response Smoking Status Never (less than 100 in life time) entered on: 11/09/21 Sex
--- OUTSIDE RECORDS SUMMARY | 2022-06-28 08:08 | XMS_ITS | Continuity of Care Document ---
:1975 Author Organization [facility] Address [address] [id number]- Care Team Providers Name Role Phone Jay Cutler MD Primary Care Physician Encounter [facility] [id number] Date(s): 11/12/21 - 12/12/21 [facility] [address] [place] [address]- Attending Physician: Salome Mccain Admitting Physician: AdmtrSalome Referring Physician: AdmtrSalome Allergies, Adverse Reactions, Alerts No Known Allergies [...]
--- OUTSIDE RECORDS SUMMARY | 2022-06-28 08:08 | XMS_ITS | Continuity of Care Document ---
:1975 Author Organization [facility] [employer] [facility] Address [address] [place] [address]- Care Team Providers Name Role Phone Jay Cutler MD Primary Care Physician Encounter [facility] NBR [id number] Date(s): 11/09/21 - 11/16/21 [facility] [employer] [facility] [address] [place] [address]- Encounter Diagnosis Mixed hyperlipidemia (Discharge Diagnosis) - 11/09/21 GERD (gastroesophageal reflux disease) (Discharge Diagnosis) - 11/09/21 Attending Physician: Jay Cutler MD Allergies, Adverse [...] Date: 09/14/21 Stop Date: 01/12/22 Status: Ordered Problem List Diagnosis Diagnosis Type Effective Dates Health Clinical Infor mant Status Service Mixed hyperlipidemia Discharge 11/09/21 Diagnosis GERD Discharge 11/09/21 (gastroesophageal Diagnosis reflux disease) Social History Social History Type Response Smoking Status Never (less than 100 in life time) entered on: 11/09/21 Sex
--- OUTSIDE RECORDS SUMMARY | 2022-06-28 08:08 | XMS_ITS | Continuity of Care Document ---
:1975 Author Organization [facility] Address [address] [phone]- Care Team Providers Name Role Phone Jay Cutler MD Primary Care Physician Encounter [facility] NBR [id number] Date(s): 03/10/22 - 04/09/22 [facility] [address] [place] [address]- Allergies, Adverse Reactions, Alerts No Known Allergies [...] Start Date: 09/14/21 Stop Date: 01/12/22 Status: Orderedtriamcinolone 0.025% topical cream 1 application, Topically, 2 times a day, # 60 Gm, 0 Refills, Acute 04/15/22 14:36:00 EDT, 03/15/22 14:36:00 EDT, Cream, [facility], Partial fill upon patient request if the prescription is fora schedule II opioid drug., 1 application Topical... Start Date: 03/15/22 Stop Date: 04/15/22 Status: Ordered Problem List Condition Effective Dates Status Health Status Informant Severe obesity(Confirmed) Active Social History Social History Type Response Smoking Status Never (less than 100 in life time) entered on: 11/09/21 Sex
--- OUTSIDE RECORDS SUMMARY | 2022-06-28 08:08 | XMS_ITS | Continuity of Care Document ---
:1975 Author Organization [facility] Address [address] [place], [place] [phone]- Care Team Providers Name Role Phone Chapis Britt MD Primary Care Physician Encounter [facility] [id number] Date(s): 09/14/21 - 09/21/21 [facility] [address] [place], [place] [phone]- Encounter Diagnosis HLD (hyperlipidemia) (Discharge Diagnosis) - 09/14/21 GERD (gastroesophageal reflux disease) (Discharge Diagnosis) - 09/14/21 Increased urinary frequency (Discharge Diagnosis) - 09/14/21 Attending Physician: Jay Cutler MD Allergies, Adverse Reactions, Alerts No Known Allergies Medications omeprazole 20 mg oral enteric coated capsule 1 capsule = 20 mg, By Mouth, Daily, # 30 capsule, 3 Refills, Maintenance, 09/14/21 16:04:00 EST, EC Capsule, [facility], Partial fill upon patient request if the prescription is for a scheduleII opioid drug. Start Date: 09/14/21 Stop Date: 01/12/22 Status: Ordered Problem List Diagnosis Diagnosis Type Effective Dates Health Status Clinical In formant Service HLD Discharge 09/14/21 (hyperlipidemia) Diagnosis GERD Discharge 09/14/21 (gastroesophagea Diagnosis l reflux disease) Increased Discharge 09/14/21 urinary Diagnosis frequency
--- OUTSIDE RECORDS SUMMARY | 2022-06-28 08:08 | XMS_ITS | Continuity of Care Document ---
:1975 Author Organization [facility] Address [address] [place] [address]- Care Team Providers Name Role Phone Omayra LAMBERT, Jay Primary Care Physician Encounter [facility] Date(s): 10/21/21 - 11/20/21 [facility] [address] [place] [address]- Allergies, Adverse Reactions, Alerts No Known Allergies [...]
--- OUTSIDE RECORDS SUMMARY | 2022-06-28 08:08 | XMS_ITS | Continuity of Care Document ---
:1975 Author Organization [facility] Address [address] [place] [address]- Care Team Providers Name Role Phone Jay Cutler MD Primary Care Physician Encounter [email or web address] NBR [id number] Date(s): 05/07/22 - 06/06/22 [place] [address]- Allergies, Adverse Reactions, Alerts No Known Allergies [...] Stop Date: 01/12/22 Status: Ordered Problem List Condition Confirmation Course Effective Dates Status Health Stat us Informant Severe obesity Confirmed Active Social History Social History Type Response Smoking Status Never (less than 100 in life time) entered on: 11/09/21 Sex Patient Care team information PersonnelName: Jay Cutler MD Address: Address: [address] [place] [address]
--- OUTSIDE RECORDS SUMMARY | 2022-06-28 08:09 | XMS_ITS | Continuity of Care Document ---
:1975 Author Organization [facility] Address [address] [place] [address]- Care Team Providers Name Role Phone Chapis Britt MD Primary Care Physician Encounter [facility] [id number] Date(s): 08/18/21 - 09/17/21 [facility] [address] [place] [address]- Allergies, Adverse Reactions, Alerts No Known Allergies [...]
--- OUTSIDE RECORDS SUMMARY | 2022-06-28 08:09 | XMS_ITS | Continuity of Care Document ---
:1975 Author Organization [facility] Address [address] [id number]- Care Team Providers Name Role Phone Jay Ctuler MD Primary Care Physician Encounter [facility] [id number] Date(s): 05/07/22 - 05/14/22 [facility] [address] [place] [address]- Encounter Diagnosis Dog bite (Discharge Diagnosis) - 05/07/22 Attending Physician: Conner Sandoval Allergies, Adverse Reactions, Alerts No Known Allergies [...] Date: 01/12/22 Status: Ordered Problem List Condition Effective Dates Status Health Status Informant Severe obesity(Confirmed) Active Diagnosis Diagnosis Type Effective Dates Health Status Clinical Serv ice Informant Dog bite Discharge 05/07/22 Diagnosis Vital Signs Most recent to oldest [Reference Range]: 1 Height 175.5 cm (05/07/22 3:13 PM) Weight 131.9 kg (05/07/22 3:13 PM) Oxygen Saturation [94-100 %] 98 % (05/07/22 3:13 PM) Pulse Rate [55-90 bpm] 90 bpm (05/07/22 3:13 PM) Body Mass Index [18.5-24.99] 42.82 *>HHI* (05/07/22 3:13 PM) Blood Pressure [90-138/55-84 mm Hg] 113/78 mm Hg (05/07/22 3:13 PM) Liters per Minute 0 L/min (05/07/22 3:13 PM) Mode of Delivery (Oxygen) Room air (05/07/22 3:13 PM) Blood pressure sites Arm, left (05/07/22 3:13 PM) Weight Obtained Via Standing scale (05/07/22 3:13 PM) Social History Social History Type Response Smoking Status Never (less than 100 in life time) entered on: 11/09/21 Sex Care Team PersonnelName: Jay Cutler MD Address: [address] [place] [address] Medical [facility], [place], [place] [address]
--- OUTSIDE RECORDS SUMMARY | 2022-06-28 08:09 | XMS_ITS | Continuity of Care Document ---
:1975 Author Organization [facility] Address [address] [place] [address]- Care Team Providers Name Role Phone Jay Cutler MD Primary Care Physician Encounter [facility] Date(s): 06/27/22 - 06/27/[address] [address]- Discharge Disposition: A-D/C Home Attending Physician: Timbo Manjarrez MD Admitting Physician: Timbo Manjarrez MD Referring Physician: Not on Staff, Referring MD Allergies, Adverse Reactions, Alerts No Known Allergies Medications atorvastatin 10 mg oral tablet 1 tablet = 10 mg, By Mouth, Daily, # 90 tablet, 3 Refills, Maintenance, 10/21/21 11:12:00 EST, [facility], Partial fill upon patient request if the prescription is for a schedule II opioid drug. Start Date: 10/21/21 Status: OrderedAugmentin 875 mg-125 mg oral tablet 1 tablet, By Mouth, Every 12 hours, for 7 days, # 14 tablet, 0 Refills, Acute 07/04/22 23:24:00 EDT,06/27/22 23:24:00 EDT, Tablet, [facility], Partial fill upon patient request if the prescription is for a schedule II opioid drug., 175.5, cm... Start Date: 06/27/22 Stop Date: 07/04/22 Status: Ordereddoxycycline hyclate 100 mg oral tablet 1 capsule, By Mouth, Every 12 hours, for 7 days, # 14 capsule, 0 Refills, Acute 07/04/22 23:25:00 EDT, 06/27/22 23:25:00 EDT, Capsule, [facility], Partial fill upon patient request if the prescription is for a schedule II opioid drug., 175.5,... Start Date: 06/27/22 Stop Date: 07/04/22 Status: Orderedomeprazole 20 mg oral enteric coated [...] Stat us Informant Severe obesity Confirmed Active Vital Signs Most recent to oldest 1 2 3 [Reference Range]: Oxygen Saturation [94-100 100 % %] (06/27/22 6:37 PM) Pulse Rate [55-90 bpm] 90 bpm (06/27/22 6:37 PM) Blood Pressure 156/102 mm Hg 121/95 mm Hg 123/81 mm Hg [90-138/55-84 mm Hg] *H* (06/27/22 10:00 PM) ( 9:40 PM) (06/27/22 11:31 PM) Respiratory Rate [16-30 20 br/min 20 br/min 20 br/mi n br/min] (06/27/22 11:31 PM) (06/27/22 10:00 PM) ( 9:40 PM) Temperature [96.8-100.4 98.3 DegF 97.9 DegF 98.0 Deg F DegF] (06/27/22 11:31 PM) (06/27/22 9:40 PM) (06/27/22 6:37 PM) Mode of Delivery (Oxygen) Room air (06/27/22 6:37 PM) Blood pressure sites Arm, left Arm, left Arm, left (06/27/22 11:31 PM) (06/27/22 10:00 PM) ( 9:40 PM) Temperature Route Oral Oral Oral (06/27/22 11:31 PM) (06/27/22 9:40 PM) (06/27/22 6:37 PM) Social History Social History Type Response Smoking Status Never (less than 100 in life time) entered on: 11/09/21 Sex Patient Care team information PersonnelName: Jay Cutler MD Address: Address: [address] [place] [address], [place], [place] [address]
--- OUTSIDE RECORDS SUMMARY | 2022-06-28 08:09 | XMS_ITS | Continuity of Care Document ---
:1975 Author Organization [facility] Address [address] [place] [address]- Care Team Providers Name Role Phone Jay Cutler MD Primary Care Physician [id number] Date(s): 11/09/21 - 12/12/21 [facility] [address] [place] [address]- Attending Physician: Jay Cutler MD Allergies, Adverse [...]
--- OUTSIDE RECORDS SUMMARY | 2022-06-28 08:09 | XMS_ITS | Continuity of Care Document ---
:1975 Author Organization [facility] Address [address] [phone]- Care Team Providers Name Role Phone Chapis Britt MD Primary Care Physician [id number] Date(s): 10/21/21 - 10/28/21 [facility] [address] [place], [place] [id number]- Attending Physician: Chapis Britt MD Allergies, Adverse Reactions, Alerts No Known [...]
--- OUTSIDE RECORDS SUMMARY | 2022-06-28 08:09 | XMS_ITS | Continuity of Care Document ---
:1975 Author Organization [facility] Address [address] [id number]- Care Team Providers Name Role Phone Jay Cutler MD Primary Care Physician Encounter [facility] [id number] Date(s): 03/15/22 - 04/14/22 [facility] [address] [place] [address]- Attending Physician: Salome Mccain Admitting Physician: Salome Mccain Referring Physician: AdmtrSalome Allergies, Adverse Reactions, Alerts [...]
[2022-06-28] MEDS: Lactated Ringers 1,000 ML 100 ML IVCONT ×2 (08:19→20:35)
[2022-06-28 08:34] LABS: COVID-19 Test Negative (Negative); IDNOW Serial# 16C4AD1C
--- NOTE | 2022-06-28 08:39 | PHA.MEDREC ---
Pharmacy Consult ? Medication Reconciliation Pharmacy has completed the medication reconciliation.
--- NOTE | 2022-06-28 10:34 | PC.NURSE ---
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 Dr Serrato aware & order changed accordingly
--- NOTE | 2022-06-28 10:39 | MHC.SHP ---
Pre-Procedural Eval Section A Date of Service: 06/28/22 The patient is an INPATIENT: No Changes since office visit: No Cold of Flu in the past 2 weeks, No New Medical Problems, No Changes in Medication and No Patient answered all questions The History & Physical has been completed within 30 days and I have reviewed it.: Yes Section B Chief Complaint: right thumb osteomyelitis, left hand new injury Allergies: Allergies Allergy/AdvReac Type Severity Reaction Status Date / Time No Known Allergies Allergy Verified 06/15/22 12:52 Exam Exam Comment: left hand with dressing and volar splint from forearm it is to fingertips. Plan Diagnosis/Plan: Change Patient with new dog bite injury to left hand that occurred yesterday patient reportedly seen at [facility] where wounds were washed out and closed as possible. Patient with reported partial amputation of left middle finger. In addition to the right thumb I and D, we are also going to address the wounds on the left hand as an I and D, and revision amputation of the left middle finger. The risks and benefits of operative treatment were discussed with the patient and the patient wishes to proceed with surgery. These risks include, but are not limited to risk of damage to blood vessels, nerves, tendons, infection, recurrence, incomplete relief of preoperative symptoms, persistent pain, possible need for further surgery and the risks associated with regional blocks and anesthesia. The plan is to take the patient to the operating room For the procedures as noted above All of the preoperative paperwork including the consent was filled out today. All the patient's questions were answered. I have reviewed the history and physical and performed a pertinent physical examination on my patient. No changes have occurred unless specified.
--- NOTE | 2022-06-28 10:51 | W.PM.OPN ---
Operative Note Operative Note Date of Service: 06/28/22 Narrative: Operative Note Narrative: Preop diagnosis: 1. Right thumb septic IP joint and distal phalanx osteomyelitis status post dog bite 2. Left hand dog bite with partial amputation of the left middle finger Postop diagnosis: Same Procedure: 1. Right thumb IP joint I&D, and culture of bone 2. Right thumb distal phalanx osteomyelitis I&D and culture bone 3. Left thumb distal phalanx level revision amputation 4. Left thumb excision of nail matrices 5. Left hand I and D of multiple dog bite wounds including the dorsal aspect of the 1st metacarpal, the mid palm wound, the index finger paronychia wound down to bone, and the 3rd web space flap type wound. 6. Loose closure of 3rd webspace flap type wound Surgeon: Carissa Serrato MD Anesthesia: General Anesthesia Findings Right thumb: no gross purulence found in the IP joint or about the lytic lesion on the radial aspect of the distal phalanx. All wounds are well healed. Findings left hand: Left middle finger amputation through the Proximal nail bed and the proximal aspect of the distal phalanx. 5 mm puncture wound over the dorsal aspect of the 1st metacarpal . Partial-thickness scratches from teeth over the dorsal aspect of the base of the 1st metacarpal and the 2nd and 3rd metacarpals. 5 mm puncture wound in the mid palm . Tear creating 1.5 cm semi circular flap at the volar ulnar base of the middle finger and volar 3rd webspace. The neurovascular bundle was not visible. Bite wound to ulnar aspect of index finger paronychia that extended down to bone. Some more superficial partial-thickness wounds over the dorsal aspect of several of the fingers. Implants: none Tourniquet time: left upper extremity 24 minutes right upper extremity Twenty-seven minutes EBL: 5.0 ml Specimen: cultures of left thumb IP joint, bone from the distal aspect of the proximal phalanx at the IP joint, and left distal phalanx bone Drains: None Complications: None Disposition: Brought to the recovery room in stable condition Plan: admit for placement of PICC line and IV antibiotics per Infectious Disease recommendations. Either admission to or referral to hospitalist team for manage of rather severe sleep apnea and respiratory issues. Wound checks in 2-3 days check cultures, antibiotics per Infectious Disease recommendations Should be seen in clinic about 7-10 days after discharge depending on the parents of the wounds anticipate suture removal from amputation site in about 3 weeks. Indications: The patient is a 46 year old man with right thumb IP joint sepsis and distal phalanx osteomyelitis following a dog bite wound several weeks ago. Antibiotics for stopped about 7 days to allow for good possibility of obtaining positive cultures. Unfortunately, patient sustained bite wounds to his left hand yesterday including a partial amputation of the left middle finger tip. He was seen at [facility] emergency department for yesterday's injury. . The risks and benefits of operative treatment, including but not limited to risk of damage to blood vessels, nerves, tendons, infection, recurrence, persistent pain or numbness, incomplete resolution of preoperative symptoms, or need for further surgery were discussed with the patient and they wished to proceed with surgery. Procedure: Once consent was obtained patient was brought back to the operating suite and placed in the operating table in a supine position. . Perioperative antibiotics and anesthesia was administered by the anesthesia team. A tourniquet was First applied to the proximal aspect of the left upper extremity and the limb was prepped and draped in a standard surgical fashion. The limb was elevated exsanguinated with Esmarch bandage and the tourniquet inflated to 250 mm of mercury for a total tourniquet time of 24 minutes. We began evaluating all of the new wounds on the left hand. We found the wounds as noted above under findings. We debrided all of the wounds and all wounds were copiously irrigated with normal saline. I loosely close the flap of tissue at the base of the middle finger using some 5 0 Prolene. Our attention was then turned to the middle finger amputation site. I carefully excised all of the remaining nail bed including the germinal matrix using a 15. Blade and rongeur. The nail bed was damaged right down into the base of the germinal matrix. There was comminuted fracture of the remaining distal aspect of the middle phalanx. These bone fragments were removed and then I used a rongeur or to level and smooth out the remaining base of the distal phalanx. The skin edges were then carefully debrided and then reapproximated using 4-0 Prolene suture after again irrigating the wound. Sterile dressing was then applied. I then turned my attention to the patient's right thumb. Tourniquet was applied the proximal aspect of the patient's right upper extremity the limb was prepped and draped in a standard surgical fashion. The limb was elevated exsanguinated with Esmarch bandage and tourniquet plate due to her 50 mm of mercury for a total tourniquet time of 27 minutes. I use the Ward is C-arm to identify the small area of bony lysis in the radial aspect of the tuft of the distal phalanx. an 8 mm longitudinal incision was made at the junction of the radial aspect of the nail bed and the paronychia fooled. Incision was made through the skin down to bone using a 15. Blade. I then used a small curette to obtain a sample of bone to send for cultures. There was no purulence identified at this site. I then made a 1 cm transverse incision over the dorsal radial aspect of the right thumb IP joint in line with the previous laceration Scar. incision extended down to the IP joint. No gross purulence was identified in the IP joint. A swab was taken for culture of the fluid within the IP joint. It was noted that he had significant loss of articular cartilage on both the proximal and distal aspects of the IP joint. I used a small curette to sample some bone from the distal ulnar aspect of the proximal phalanx at the IP joint. This bone was then sent for culture.. At this point the tourniquet was deflated and hemostasis obtained with a brief period of local pressure. The Wounds were copiously irrigated with normal saline. The skin edges were reapproximated with 4-0 nylon suture. digital blocks admin performed at the base of the left middle finger and the right thumb using 0.5% plain ropivacaine for postop pain control and a sterile dressing was applied. The patient appears to have tolerated the procedure well and with no complications. All digits were well vascularized conclusion of the case. was brought to the recovery room in stable condition.
--- NOTE | 2022-06-28 15:47 | P.CONCC_ITS ---
History of Present Illness Data of Consult Service Date: 06/28/22 Requesting physician: Carissa Serrato Primary Care Provider: Timbo Gracia, DO HPI I was asked by Dr. Serrato to see Mr. Cox because of hypoxemia and purported respiratory insufficiency. The patient is a 46 yo w PMHx of significant obesity (5-11?, 123 kg, BMI 38), thought to have JULIAN but no NIV device yet..? On May 13 underwent I&D of right thumb after a dog bite, and required overnight BiPAP that night, was thus admitted to ICU for the night. ?Was seen by Dr. Rankin who recommended CPAP 12 cm at night and as needed for naps.? The patient reportedly spent one more night in the hospital on the CPAP with no problems, and was discharged the next day. The patient was admitted to the hospital again, for infection of the thumb, 06/03-06/04.? According to the [email or web address] vital signs, that night he spent the night in the hospital on room air with no CPAP, with Sats running in the mid to high 90s. The patient was readmitted today for I&D of left hand after another dog bite.? In preop holding, he was having resp pauses, with Sats reportedly dropping into 50?s on room air.? (Thought 2? to opiates given to him the day before at [facility] (?), where he had a washout and partial closure of a new dog bite.)? Was treated with NRBFM.? No ABG, no workup. Today underwent I&D left hand and revision amputation under GA w LMA.? Was given 200ug fentanyl intraop.? Post op was hypoxemic and bradypneic in PACU.? Was placed on BIPAP.? I was called to see him at about 1530.? He was very sleepy.? Pupils meiotic, 1.5-2mm.? On BiPAP 12/5/70%, Sat was 100%, average RR over the 20-30 min I spent with him increased into the high teens, and avg Vt about 700cc (range 450-850).? We were unable to get a good ETCO2 tracing.? With FiO2 down to 30%, SpO2 was still 100%.? With FiO2 down to 25%, SpO2 was 96-98%. I went back and saw the patient at 1610.? He was completely awake and begging for something to drink.? Took the BiPAP mask off.? Fully awake, responsive, appropriate.? Breathing easy on room air with SpO2 96%.? Told me that he lives w his and snores heavily at night. IMPRESSION: 1. Dog bites both hands 2. Underlying significant obesity 3. JULIAN.? There is no question about that.? Dr. Rankin has previously recommended CPAP 12 cm at night.? I agree with that. 4. Respiratory depression 2? opiates and anesthesia.? Pts with obesity and JULIAN are notoriously sensitive to the resp depressant effects of opiates. In regards to the latter, opiates should be minimized to the extent possible, with the help of acetaminophen and NSAIAs. (Not sure if Tramadol would be of any help.) The patient can be admitted to [facility] overnight and treated with nighttime CPAP.? I will put in a consult to the Hospitalist service to consult on and manage respiratory issues. Discussed all the above w Dr. Serrato. [facility] Past Medical History Medical History (Updated 06/28/22 @ 10:16 by Janeth Chowdhury RN) Acute respiratory failure with hypoxemia Dog bite History of COVID-19 Hypercholesteremia Open fracture of right thumb JULIAN (obstructive sleep apnea) Surgical History Surgical History History of incision and drainage Social History Social History Household Members: Spouse and Family Housing: House Do you presently have visiting nurse or other home services: No Patient Tobacco Use Status: Former Tobacco user Quit Date: 2017 e-Cigarette/Vaping Use: Never Used Use of substances other than those prescribed or required for medical reasons: Yes Substance Use Frequency: Daily Are you DNR?: No Advance Directives: No Advance Directives Information Provided: No service: No Current occupational status: employed Meds Allergies Allergy/AdvReac Type Severity Reaction Status Date / Time No Known Allergies Allergy Verified 06/15/22 12:52 Active Medications: Current Medications Acetaminophen (Acetaminophen 325 Mg Tablet) 650 mg PO Q6H PRN PRN Reason: Pain, Mild (Pain Scale 1-3) Albuterol Sulfate (Albuterol Sulfate (0.083%) 2.5 Mg/3 Ml Vial.Neb) 2.5 mg INHALE ONCE PRN PRN Reason: Wheezing Fentanyl (Fentanyl Citrate/Pf 100 Mcg/2 Ml Vial) 25 mcg IVPUSH Q5M PRN; Protocol PRN Reason: Pain, Moderate (Pain Scale 4-6 Lactated Ringer's (Lr) 1,000 mls @ 100 mls/hr IVCONT .Q10H [facility] Last Admin: 06/28/22 08:19 Dose: 100 mls/hr Ibuprofen (Ibuprofen 600 Mg Tablet) 600 mg PO Q6H PRN PRN Reason: Pain, Mild (Pain Scale 1-3) Magnesium Hydroxide (Milk Of Magnesia 30 Ml Oral.Susp) 30 ml PO DAILY PRN PRN Reason: Constipation Ondansetron HCl (Ondansetron Hcl 4 Mg/2 Ml Vial) 4 mg IVPUSH ONCE PRN PRN Reason: Nausea and Vomiting Oxycodone HCl (Oxycodone Hcl Immed Release 5 Mg Tablet) 5 mg PO ONCE PRN PRN Reason: Pain, Severe (Pain Scale 7-10) Oxycodone HCl (Oxycodone Hcl Immed Release 5 Mg Tablet) 5 mg PO Q4H PRN PRN Reason: Pain, Moderate (Pain Scale 4-6 Sodium Chloride (0.9 % Sodium Chloride Flush 3 Ml Syringe) 3 ml IVFLUSH QSHIFT [facility] Home Medications Medication Instructions Recorded Confirmed Last Taken Type multivitamin 1 tab PO DAILY 06/04/22 06/28/22 Unknown History omeprazole 20 mg capsule,delayed 20 mg PO DAILY PRN Heartburn 06/04/22 06/28/22 Unknown History release Physical Exam Vital Signs: Vital Signs: Last Vital Signs Temp 97 F 06/28/22 14:46 Pulse 63 06/28/22 14:46 Resp 10 L 06/28/22 14:46 BP 153/73 H 06/28/22 14:46 Pulse Ox 100 06/28/22 14:46 O2 Del Method 06/28/22 14:46 O2 Flow Rate 8 06/28/22 13:46 FiO2 80 06/28/22 14:46 BMI result Body Mass Index 38.0 Results Microbiology Microbiology Results: Microbiology 06/28/22 Unknown Thumb Right - Thumb Gram Stain - Final 06/28/22 Unknown Thumb Right - Thumb Gram Stain - Final 06/28/22 Unknown Thumb Right - Thumb Gram Stain - Final
[2022-06-28] MEDS: oxyCODONE HCl Immed Release 5 MG TABLET PO ×2 (16:26→20:37)
[2022-06-28] MEDS: fentaNYL citrate/PF 100 MCG/2 ML VIAL 25 MCG IVPUSH (16:26)
[2022-06-28] MEDS: Ketorolac Tromethamine 30 MG/ML VIAL IVPUSH (16:40)
[2022-06-28 22:16] LABS: Creatinine Clr Calc Pharmacy 135.9; Estimated Glomerular Filt Rate > 60
[2022-06-29 03:29] VITALS: BP 198/81; PULSE 100; RESP 20; TEMP 36.2; O2SAT 92
[2022-06-29 03:37] VITALS: BP 184/84
--- NOTE | 2022-06-29 03:47 | PC.NURSE ---
Overnight hospitalist made aware of elevated BP and patient asymptomatic. Will continue to monitor
[2022-06-29] MEDS: oxyCODONE HCl Immed Release 5 MG TABLET PO ×5 (05:10→23:17)
[2022-06-29 07:35] LABS: Estimated Glomerular Filt Rate > 60
[2022-06-29 07:44] VITALS: BP 164/83; PULSE 85; RESP 18; TEMP 36; O2SAT 94
--- NOTE | 2022-06-29 08:41 | MHC.CM.PN ---
CM met with Patient at bedside;Patient is here under EXTENDED STAY. 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 Home no services is the goal and CM has initiated and will follow for dc planning. Patient has received no Covid vax and his PCP is Dr. Timbo Gracia.
[2022-06-29 09:27] VITALS: O2SAT 94
[2022-06-29] MEDS: Lactated Ringers 1,000 ML 100 ML IVCONT (10:10)
[2022-06-29 12:00] VITALS: BP 165/79; PULSE 81; RESP 18; TEMP 35.8; O2SAT 92
[2022-06-29] MEDS: Acetaminophen 325 MG TABLET 650 MG PO (12:11)
[2022-06-29] MEDS: Ibuprofen 600 MG TABLET PO (12:12)
--- NOTE | 2022-06-29 12:35 | P.PNIM_ITS ---
Subjective Subjective Date of Service: 06/29/22 Interval History: the patient was seen and evaluated this morning Laying in bed, feels comfortable Denies any fever, chills or shortness of breath Complaining of pain at his fingers post surgery No reported other overnight events. Systemic review: No fever, chills or weakness No chest pain, palpitation No shortness of breath or coughing No abdominal pain, nausea or vomiting No urinary symptoms Right hand pain and swelling Physical Exam Vital Signs: Vital Signs: Last Vital Signs Temp 96.5 F L 06/29/22 12:00 Pulse 81 06/29/22 12:00 Resp 18 06/29/22 12:00 BP 165/79 H 06/29/22 12:00 Pulse Ox 92 06/29/22 12:00 O2 Del Method 06/29/22 12:00 O2 Flow Rate 8 06/28/22 13:46 FiO2 25 06/28/22 15:46 BMI result Body Mass Index 38.0 Const: Other: Constitutional : Alert, oriented, not in distress Neck : Normal inspection, Supple Cardiovascular : RRR, no JVP, no lower extremity edema Respiratory : fair bilateral air entry, no crackles, wheezes or rhonchi Gastrointestinal: soft, lax, Normal bowel sounds, Non tender Skin : Warm, Dry, right hand in dressing with no drainage about mild swelling, left and as well multiple wounds covered with dressing Neurological : Alert & oriented x3, No focal deficit , CN 2-12 within normal Objective Data Active Medications Acetaminophen (Acetaminophen 325 Mg Tablet) 650 mg PO Q6H PRN PRN Reason: Pain, Mild (Pain Scale 1-3) Last Admin: 06/29/22 12:11 Dose: 650 mg Documented By: ANDRIY Albuterol Sulfate (Albuterol Sulfate (0.083%) 2.5 Mg/3 Ml Vial.Neb) 2.5 mg INHALE ONCE PRN PRN Reason: Wheezing Fentanyl (Fentanyl Citrate/Pf 100 Mcg/2 Ml Vial) 25 mcg IVPUSH Q5M PRN; Protocol PRN Reason: Pain, Moderate (Pain Scale 4-6 Last Admin: 06/28/22 16:26 Dose: 25 mcg Documented By: KITA Lactated Ringer's (Lr) 1,000 mls @ 100 mls/hr IVCONT .Q10H ERIK Last Admin: 06/29/22 10:10 Dose: 100 mls/hr Documented By: ANDRIY Vancomycin HCl 1,250 mg/ (Sodium Chloride) 250 mls @ 166.667 mls/hr IV Q12H E[facility]K Ibuprofen (Ibuprofen 600 Mg Tablet) 600 mg PO Q6H PRN PRN Reason: Pain, Mild (Pain Scale 1-3) Last Admin: 06/29/22 12:12 Dose: 600 mg Documented By: ANDRIY Magnesium Hydroxide (Milk Of Magnesia 30 Ml Oral.Susp) 30 ml PO DAILY PRN PRN Reason: Constipation Ondansetron HCl (Ondansetron Hcl 4 Mg/2 Ml Vial) 4 mg IVPUSH ONCE PRN PRN Reason: Nausea and Vomiting Oxycodone HCl (Oxycodone Hcl Immed Release 5 Mg Tablet) 5 mg PO Q4H PRN PRN Reason: Pain, Moderate (Pain Scale 4-6 Last Admin: 06/29/22 09:01 Dose: 5 mg Documented By: ANDRIY Pharmacy Consult (Consult Rx Vancomycin Dosing) 1 each MISCELLANE DAILY PRN PRN Reason: Consult order Pharmacy Consult (Consult Rx Vancomycin Dosing) 1 each MISCELLANE DAILY PRN PRN Reason: Consult order Pharmacy Consult (Consult Rx Vancomycin Dosing) 1 each MISCELLANE DAILY PRN PRN Reason: Consult order Sodium Chloride (0.9 % Sodium Chloride Flush 3 Ml Syringe) 3 ml IVFLUSH QSHIFT [facility] Last Admin: 06/29/22 09:03 Dose: Not Given Documented By: ANDRIY Non-Admin Reason: IV Running Labs CBC & Chem 7: 06/29/22 06:25 Labs: Laboratory Results - last 24 hr 06/28/22 06/29/22 21:42 06:25 Estim Creat Clear Calc 135.9 151.0 Estimated GFR > 60 > 60 Microbiology Microbiology Results: Microbiology 06/28/22 Unknown Gram Stain - Final Thumb Right - Thumb Routine Culture - Preliminary Culture in progress. Anaerobic Culture - Preliminary Culture in progress. 06/28/22 Unknown Gram Stain - Final Thumb Right - Thumb Routine Culture - Preliminary No growth to date. 06/28/22 Unknown Gram Stain - Final Thumb Right - Thumb Routine Culture - Preliminary No growth to date. Anaerobic Culture - Preliminary No growth to date. Assessment and Plan (1) JULIAN (obstructive sleep apnea): Status: Inactive Plan A 46 years old male with PMH of JULIAN not on CPAP id waiting machine who had dog bite injury last month presented for a 2nd left hand dog bite this time. Post surgery had difficulties weaning him of requiring BiPAP with good response. JULIAN Recommend CPAP 12 cm at nighttime Advised to get his machine as outpatient For left hand dog bite Partial amputation of left middle finger Surgical intervention by Dr. Serrato On vancomycin IV, adjusted by pharmacy GERD Continue omeprazole Thank you for the consult, will sign off, please contact hospital stay for any further questions. Quality Stroke Does the patient have a stroke diagnosis?: No VTE Prior VTE?: No VTE Risk Level:: Medical - moderate - high VTE Device Contraindication: N/A - Device Ordered VTE Drug Contraindication: Treatment Not Indicated
[2022-06-29] MEDS: vancomycin HCL 1,250 MG in 0.9 % Sodium Chloride 250 ML 166.67 MG IV (12:57)
--- NOTE | 2022-06-29 17:57 | PM.PNORT ---
Subjective Subjective Date of Service: 06/29/22 Interval history: POD1: Procedure:? ?1. ? Right thumb IP? joint I&D, and culture of bone ?2. Right thumb distal phalanx osteomyelitis I&D and culture bone ?3. Left thumb distal phalanx level revision amputation ?4. Left thumb excision of nail matrices ?5.? Left hand I and D of multiple dog bite wounds including the dorsal aspect of the 1st metacarpal, the mid palm wound, the index finger paronychia wound down to bone, and the 3rd web space flap type wound. ? 6.? Loose closure of 3rd webspace flap type wound No overnight events Patient is resting in bed with splints / bandage intact no concerns. Physical Exam Vital Signs: Vital Signs: Last Vital Signs Temp 96.5 F L 06/29/22 12:00 Pulse 81 06/29/22 12:00 Resp 18 06/29/22 12:00 BP 165/79 H 06/29/22 12:00 Pulse Ox 92 06/29/22 12:00 O2 Del Method 06/29/22 12:00 O2 Flow Rate 8 06/28/22 13:46 FiO2 25 06/28/22 15:46 BMI result Body Mass Index 38.0 Const: General: cooperative, healthy appearing and no acute distress Resp: Effort & Inspection: normal respiratory effort and able to speak in complete sentences Cardio: Rate: regular rate Peripheral pulses: Peripheral pulses 2+ throughout GI: Palpation (GI): Soft to palpation Skin: General skin exam: no rashes or lesions noted Extrem: Other: bilat hands splint and dressings clean dry and intact. Pulses present Procedures Date of Service Date of Service: 06/29/22 Progress Note: A&P Assessment and plan (1) Dog bite of right thumb with infection: Status: Acute (2) Septic joint of right hand: Status: Acute (3) Amputation of left thumb: Status: Acute Plan - PICC line and IV antibiotics per Infectious Disease recommendations. ?-Wound checks in 2-3 days ?-check cultures, antibiotics per Infectious Disease recommendations ?- Should be seen in clinic about 7-10 days after discharge depending on the parents of the wounds -?anticipate suture removal from amputation site in about 3 weeks. Time Spent With Patient Time: Total time spent is greater than 50% in coordination of care (as documented) at patient's floor/unit and/or counseling patient: Quality Stroke Does the patient have a stroke diagnosis?: No VTE Prior VTE?: No VTE Risk Level:: Medical - moderate - high VTE Device Contraindication: N/A - Device Ordered VTE Drug Contraindication: Treatment Not Indicated
--- NOTE | 2022-06-29 18:18 | HO.PICC ---
PICC Line Insertion NPICC Diagnosis: Osteomyelitis Indication: senior living antibiotics Pertinent Labs: reviewed Technique: Following informed consent including risks, benefits and alternatives and using sterile technique including cap and mask, sterile gown, glove and drape, the right arm was prepped and draped in the usual sterile fashion of full barrier technique with CHG. Following completion of [place] Protocol the skin and soft tissues were anesthetized with 1% Lidocaine plain. Using ultrasound guidance, right basilic vein access was attempted twice by Emmanuel Caicedo RN. Right brachial vein was accessed on first attempt by Gene Ocampo RN, but unable to obtain blood return from introducer, so it was removed. Right basilic vein was accessed on first attempt by Gene Ocampo RN. Over an 0.018 wire through peel-away sheath, a 5FR Double PASV PICC line was positioned. Catheter length is 40CM internal length, 0 CM external length, for a total trimmed length of 40 CM. The procedure was performed in S272. Tip verification was performed by Jonathan Garrison with Sherlock 3CG. Tip located in SVC. Ultrasound was used to document vein patency and for needle entry. A formal ultrasound picture and cardiac rhythm strip was recorded. [facility] has released the line for use and it is currently dressed with a StatLock, Tegaderm, and CHG disc. Verification has been performed for blood return and line patency. Arm Circumference: 34 CM Equipment: [employer] Power PICC Solo Catheter Type: 5FR Double Lumen PASV PICC Lot #: [id number]
[2022-06-29 19:10] VITALS: BP 196/83; PULSE 88; RESP 17; TEMP 36.7; O2SAT 96
[2022-06-29] MEDS: 0.9 % Sodium Chloride Flush 10 ML SYRINGE IVFLUSH (19:40)
[2022-06-29] MEDS: 0.9 % Sodium Chloride Flush 3 ML SYRINGE IVFLUSH (19:44)
[2022-06-30] VITALS: TEMP -17.7; TEMP 0
[2022-06-30] MEDS: Lactated Ringers 1,000 ML 100 ML IVCONT (00:47)
[2022-06-30] MEDS: vancomycin HCL 1,250 MG in 0.9 % Sodium Chloride 250 ML 166.67 MG IV (00:50)
[2022-06-30] MEDS: Ibuprofen 600 MG TABLET PO ×2 (00:51→15:42)
[2022-06-30] MEDS: Acetaminophen 325 MG TABLET 650 MG PO ×2 (00:53→15:43)
[2022-06-30 07:51] VITALS: BP 189/99; PULSE 86; RESP 20; TEMP 36.2; O2SAT 100
[2022-06-30 08:21] LABS: Creatinine Clr Calc Pharmacy 156.8; Estimated Glomerular Filt Rate > 60
--- NOTE | 2022-06-30 09:41 | PM.PNORT ---
Subjective Subjective Date of Service: 06/30/22 Interval history: POD2: Procedure:? ?1. ? Right thumb IP? joint I&D, and culture of bone ?2. Right thumb distal phalanx osteomyelitis I&D and culture bone ?3. Left thumb distal phalanx level revision amputation ?4. Left thumb excision of nail matrices ?5.? Left hand I and D of multiple dog bite wounds including the dorsal aspect of the 1st metacarpal, the mid palm wound, the index finger paronychia wound down to bone, and the 3rd web space flap type wound. ? 6.? Loose closure of 3rd webspace flap type wound No overnight events Patient is resting in bed with splints / bandage intact no concerns. Physical Exam Vital Signs: Vital Signs: Last Vital Signs Temp 97.2 F 06/30/22 07:51 Pulse 86 06/30/22 07:51 Resp 20 06/30/22 07:51 BP 189/99 H 06/30/22 07:51 Pulse Ox 100 06/30/22 07:51 O2 Del Method 06/29/22 19:10 O2 Flow Rate 8 06/28/22 13:46 FiO2 25 06/28/22 15:46 BMI result Body Mass Index 38.0 Const: General: cooperative, healthy appearing and no acute distress Resp: Effort & Inspection: normal respiratory effort and able to speak in complete sentences Cardio: Rate: regular rate Peripheral pulses: Peripheral pulses 2+ throughout GI: Palpation (GI): Soft to palpation Skin: General skin exam: no rashes or lesions noted Extrem: Other: bilat hands splint and dressings clean dry and intact. Pulses present Procedures Date of Service Date of Service: 06/30/22 Progress Note: A&P Assessment and plan (1) Amputation of left thumb: Status: Acute (2) Dog bite of right thumb with infection: Status: Acute (3) Septic joint of right hand: Status: Acute Plan - PICC line and IV antibiotics per Infectious Disease recommendations. ?-Wound checks in 2-3 days ?-check cultures, antibiotics per Infectious Disease recommendations ?- Should be seen in clinic about 7-10 days after discharge depending on the parents of the wounds -?anticipate suture removal from amputation site in about 3 weeks. Time Spent With Patient Time: Total time spent is greater than 50% in coordination of care (as documented) at patient's floor/unit and/or counseling patient: Quality Stroke Does the patient have a stroke diagnosis?: No VTE Prior VTE?: No VTE Risk Level:: Medical - moderate - high VTE Device Contraindication: N/A - Device Ordered VTE Drug Contraindication: Treatment Not Indicated
[2022-06-30] MEDS: 0.9 % Sodium Chloride Flush 10 ML SYRINGE IVFLUSH ×3 (09:46→22:10)
[2022-06-30] MEDS: 0.9 % Sodium Chloride Flush 3 ML SYRINGE IVFLUSH ×2 (09:46→22:10)
[2022-06-30] MEDS: oxyCODONE HCl Immed Release 5 MG TABLET PO ×4 (09:53→22:09)
[2022-06-30 11:34] VITALS: BP 229/118; PULSE 87; RESP 16; TEMP 36.8; O2SAT 96
[2022-06-30 12:27] LABS: Vancomycin Trough 8.7 mcg/mL (10.0-20.0)
[2022-06-30] MEDS: cefTRIAXone sodium 2 GM in 0.9 % Sodium Chloride 50 ML IV (13:22)
[2022-06-30] MEDS: levoFLOXacin 750 MG TABLET PO (13:22)
--- NOTE | 2022-06-30 14:25 | MHC.CM.PN ---
Male 46 DX Osteomyelitis DP is home with IV ABX. [facility] have been referred. PICC line info and flush orders have been sent to [facility] The PICC line was inserted yesterday. The final Medication will be Ceftriaxone 2GM IV QD. The patient will receive his 1st dose here today. Carissa the home infusion Liason, will be in to perform the teach with Pt and family tomorrow. DP home with IV ABX via family transport.
[2022-06-30 15:37] VITALS: PULSE 86; RESP 17; TEMP 36.5; O2SAT 98
--- NOTE | 2022-06-30 18:04 | PC.NURSE ---
Blood pressure 229/118 on the leg, unable to do BP on the arms d/t PICC line and laci hands wounds and severe pressure pain when BP cuff is applied to arms. PHILLIP Conner was contacted , Hospitalist service was notified . Will assess pt's pain level and recheck BP
--- NOTE | 2022-06-30 18:52 | PC.NURSE ---
pt refused continuos O 2 sat monitor , refused morphine
[2022-06-30 19:23] VITALS: BP 177/79; PULSE 81; RESP 17; TEMP 36.4; O2SAT 96
--- NOTE | 2022-06-30 22:57 | P.CNID_ITS ---
History of Present Illness Data of Consult Service Date: 06/30/22 Requesting physician: Carissa Serrato Primary Care Provider: DO KELLY Stoner Reason for consult: right hand infection He presents with bilateral hand pain. He was being treated for right septic thumb IP/distal phalanx osteomyelitis after dog bite on 05/12. He had various antibiotics including Levaquin and most recently Amoxicillin and Doxycycline which he stopped on 06/24. Cultures from 05/12 grew pasteurella multocida and strep pseudointermedius. He received tetanus shots and rabies shots as dogs rabies shots just . He was due to get debridement and cultures on 06/28 in OR. He presented to ER at [facility] on 06/27 after same dog bit left distal third finger ,distal tip removed by dog. Dog is now euthanized and patient says didnt euthanize earlier because [facility] allegedly wanted him to pay $1000 for [facility] to test for rabies,quarantine and euthanize dog and he didnt have money. Most recent OR culture negative (coagulase negative staph contaminant) Review of Systems Review of Systems: Yes all other systems are reviewed and are negative PMFSH Past Medical History Medical History Acute respiratory failure with hypoxemia Dog bite History of COVID-19 Hypercholesteremia Open fracture of right thumb JULIAN (obstructive sleep apnea) Family History Family history: reviewed and not pertinent Surgical History Surgical History History of incision and drainage Social History Social History Household Members: Family Housing: House Do you presently have visiting nurse or other home services: No Patient Tobacco Use Status: Former Tobacco user Quit Date: 2017 e-Cigarette/Vaping Use: Never Used Substance Use Type: Marijuana service: No Current occupational status: employed Meds Allergies Allergy/AdvReac Type Severity Reaction Status Date / Time No Known Allergies Allergy Verified 06/15/22 12:52 Active Medications: Current Medications Acetaminophen (Acetaminophen 325 Mg Tablet) 650 mg PO Q6H PRN PRN Reason: Pain, Mild (Pain Scale 1-3) Last Admin: 06/30/22 15:43 Dose: 650 mg Ceftriaxone Sodium 2 gm/ (Sodium Chloride) 50 mls @ 100 mls/hr IV Q24H [facility] Last Infusion: 06/30/22 14:15 Dose: Infused Ibuprofen (Ibuprofen 600 Mg Tablet) 600 mg PO Q6H PRN PRN Reason: Pain, Mild (Pain Scale 1-3) Last Admin: 06/30/22 15:42 Dose: 600 mg Levofloxacin (Levofloxacin 750 Mg Tablet) 750 mg PO Q24H [facility] Last Admin: 06/30/22 13:22 Dose: 750 mg Magnesium Hydroxide (Milk Of Magnesia 30 Ml Oral.Susp) 30 ml PO DAILY PRN PRN Reason: Constipation Morphine Sulfate (Morphine Sulfate 4 Mg/Ml Cartridge) 4 mg IVPUSH Q6H PRN; Protocol PRN Reason: Pain, Severe (Pain Scale 7-10) Oxycodone HCl (Oxycodone Hcl Immed Release 5 Mg Tablet) 5 mg PO Q4H PRN PRN Reason: Pain, Moderate (Pain Scale 4-6 Last Admin: 06/30/22 22:09 Dose: 5 mg Pharmacy Consult (Consult Rx Vancomycin Dosing) 1 each MISCELLANE DAILY PRN PRN Reason: Consult order Pharmacy Consult (Consult Rx Vancomycin Dosing) 1 each MISCELLANE DAILY PRN PRN Reason: Consult order Pharmacy Consult (Consult Rx Vancomycin Dosing) 1 each MISCELLANE DAILY PRN PRN Reason: Consult order Sodium Chloride (0.9 % Sodium Chloride Flush 3 Ml Syringe) 3 ml IVFLUSH QSHIFT [facility] Last Admin: 06/30/22 22:10 Dose: 3 ml Sodium Chloride (0.9 % Sodium Chloride Flush 10 Ml Syringe) 10 ml IVFLUSH TID [facility] Last Admin: 06/30/22 22:10 Dose: 10 ml Home Medications Medication Instructions Recorded Confirmed Last Taken Type multivitamin 1 tab PO DAILY 06/04/22 06/28/22 Unknown History omeprazole 20 mg capsule,delayed 20 mg PO DAILY PRN Heartburn 06/04/22 06/28/22 Unknown History release Physical Exam Vital Signs: Vital Signs: Last Vital Signs Temp 97.5 F 06/30/22 19:23 Pulse 81 06/30/22 19:23 Resp 17 06/30/22 19:23 BP 177/79 H 06/30/22 19:23 Pulse Ox 96 06/30/22 19:23 O2 Del Method 06/30/22 19:23 O2 Flow Rate 8 10/24/22 13:46 FiO2 25 06/28/22 15:46 BMI result Body Mass Index 38.0 Const: General: cooperative HEENT: Head: Yes normal to inspection Face and sinus: Yes normal facial e xam Mouth: Normal oral and palatal mucosa present Teeth and gingiva: dentition normal Eyes: General: appearance normal, both eyes and all related structures Pupils: Equal, round and reactive pupils present Resp: Effort & Inspection: normal respiratory effort Cardio: Rate: regular rate Rhythm: regular rhythm GI: Palpation (GI): Soft to palpation and nontender : General: Yes no CVA tenderness Back/Spine/Pelvis: Back: no CVA tenderness Skin: General skin exam: no rashes or lesions noted Neuro: General: moves all extremities Cranial nerves: Yes Equal, round and reactive pupils present Extrem: Other: hands wrapped Psych: Appearance: grossly normal Results Labs CBC & Chem 7: 06/30/22 06:56 Labs: BMP 06/30/22 06:56 Creatinine 0.78 Microbiology Microbiology Results: Microbiology 06/28/22 Unknown Thumb Right - Thumb Gram Stain - Final 06/28/22 Unknown Thumb Right - Thumb Routine Culture - Final No growth after 2 days 06/28/22 Unknown Thumb Right - Thumb Anaerobic Culture - Preliminary No growth to date. 06/28/22 Unknown Thumb Right - Thumb Gram Stain - Final 06/28/22 Unknown Thumb Right - Thumb Routine Culture - Preliminary Coag negative Staphylococcus 06/28/22 Unknown Thumb Right - Thumb Anaerobic Culture - Preliminary Culture in progress. 06/28/22 Unknown Thumb Right - Thumb Gram Stain - Final 06/28/22 Unknown Thumb Right - Thumb Routine Culture - Final No growth after 2 days Assessment and Plan (1) Amputation of left thumb: Status: Acute (2) Dog bite of right thumb with infection: Status: Acute (3) Septic joint of right hand: Status: Acute osteomyelitis right hand with so far strep pseudointermedius and pasteurella multocida identified Plan Six weeks IV Ceftriaxone 2 g daily and po Levaquin 750 mg daily for six weeks Patient aware risk tendon rupture with Levaquin Weekly CBC,creatinine and LFT
[2022-06-30 23:39] VITALS: BP 172/85; PULSE 79; RESP 18; TEMP 36.3; O2SAT 95
[2022-07-01 03:02] VITALS: BP 161/78; PULSE 95; RESP 18; TEMP 36.1; O2SAT 92
--- NOTE | 2022-07-01 07:19 | P.PNIM_ITS ---
Subjective Subjective Date of Service: 07/01/22 Interval History: Seen/examined, followed up infected finger and now uncontrolled BP that are widely variable without symptoms--BP is been taking in the calf because he would not allow it to be done in arm d/t pain Review of Systems no chest pain, no sob, Physical Exam Vital Signs: Vital Signs: Last Vital Signs Temp 97.0 F 07/01/22 03:02 Pulse 95 07/01/22 03:02 Resp 18 07/01/22 03:02 BP 161/78 H 07/01/22 03:02 Pulse Ox 92 07/01/22 03:02 O2 Del Method 07/01/22 03:02 O2 Flow Rate 8 06/28/22 13:46 FiO2 25 06/28/22 15:46 BMI result Body Mass Index 38.0 Const: Other: Constitutional : Alert, oriented, not in distress Neck : Normal inspection, Supple Cardiovascular : RRR, no JVP, no lower extremity edema Respiratory : fair bilateral air entry, no crackles, wheezes or rhonchi Gastrointestinal: soft, lax, Normal bowel sounds, Non tender Skin : Warm, Dry, right hand in dressing with no drainage about mild swelling, left and as well multiple wounds covered with dressing Neurological : Alert & oriented x3, No focal deficit , CN 2-12 within normal Objective Data Active Medications Acetaminophen (Acetaminophen 325 Mg Tablet) 650 mg PO Q6H PRN PRN Reason: Pain, Mild (Pain Scale 1-3) Last Admin: 06/30/22 15:43 Dose: 650 mg Documented By: LINA Amlodipine Besylate (Amlodipine Besylate 5 Mg Tablet) 5 mg PO DAILY [facility]; Protoc ol Ceftriaxone Sodium 2 gm/ (Sodium Chloride) 50 mls @ 100 mls/hr IV Q24H [facility] Last Infusion: 06/30/22 14:15 Dose: 0 mls/hr Documented By: TELLO Ibuprofen (Ibuprofen 600 Mg Tablet) 600 mg PO Q6H PRN PRN Reason: Pain, Mild (Pain Scale 1-3) Last Admin: 06/30/22 15:42 Dose: 600 mg Documented By: LINA Levofloxacin (Levofloxacin 750 Mg Tablet) 750 mg PO Q24H [facility] Last Admin: 06/30/22 13:22 Dose: 750 mg Documented By: TELLO Magnesium Hydroxide (Milk Of Magnesia 30 Ml Oral.Susp) 30 ml PO DAILY PRN PRN Reason: Constipation Morphine Sulfate (Morphine Sulfate 4 Mg/Ml Cartridge) 4 mg IVPUSH Q6H PRN; Protocol PRN Reason: Pain, Severe (Pain Scale 7-10) Oxycodone HCl (Oxycodone Hcl Immed Release 5 Mg Tablet) 5 mg PO Q4H PRN PRN Reason: Pain, Moderate (Pain Scale 4-6 Last Admin: 06/30/22 22:09 Dose: 5 mg Documented By: CORRIE Pharmacy Consult (Consult Rx Vancomycin Dosing) 1 each MISCELLANE DAILY PRN PRN Reason: Consult order Pharmacy Consult (Consult Rx Vancomycin Dosing) 1 each MISCELLANE DAILY PRN PRN Reason: Consult order Pharmacy Consult (Consult Rx Vancomycin Dosing) 1 each MISCELLANE DAILY PRN PRN Reason: Consult order Sodium Chloride (0.9 % Sodium Chloride Flush 3 Ml Syringe) 3 ml IVFLUSH QSHIFT [facility] Last Admin: 06/30/22 22:10 Dose: 3 ml Documented By: CORRIE Sodium Chloride (0.9 % Sodium Chloride Flush 10 Ml Syringe) 10 ml IVFLUSH TID [facility] Last Admin: 06/30/22 22:10 Dose: 10 ml Documented By: CORRIE Labs CBC & Chem 7: 07/01/22 06:56 Labs: Laboratory Results - last 24 hr 06/30/22 06/30/22 06:56 11:11 Estim Creat Clear Calc 156.8 Estimated GFR > 60 Vancomycin Trough 8.7 L Microbiology Microbiology Results: Microbiology 06/28/22 Unknown Gram Stain - Final Thumb Right - Thumb Routine Culture - Final No growth after 2 days Anaerobic Culture - Preliminary No growth to date. 06/28/22 Unknown Gram Stain - Final Thumb Right - Thumb Routine Culture - Preliminary Coag negative Staphylococcus Anaerobic Culture - Preliminary Culture in progress. 06/28/22 Unknown Gram Stain - Final Thumb Right - Thumb Routine Culture - Final No growth after 2 days Assessment and Plan (1) JULIAN (obstructive sleep apnea): Status: Inactive (2) Elevated blood pressure reading: Status: Acute Plan A 46 years old male with PMH of JULIAN not on CPAP id waiting machine who had dog bite injury last month presented for a 2nd left hand dog bite this time. Post surgery had difficulties weaning him of requiring BiPAP with good response. JULIAN Recommend CPAP 12 cm at nighttime Advised to get his machine as outpatient For left hand dog bite Partial amputation of left middle finger Surgical intervention by Dr. Serrato On vancomycin IV, adjusted by pharmacy GERD Continue omeprazole Elevated BP--Prior record reviewed and BPs were ok during his may vist, BP is been taking in the calf and likely inacurate for a big man, should have BP checked in arm at least once to get an accurate number a decision made on permanent med treatment . Quality Stroke Does the patient have a stroke diagnosis?: No VTE Prior VTE?: No VTE Risk Level:: Medical - moderate - high VTE Device Contraindication: N/A - Device Ordered VTE Drug Contraindication: Treatment Not Indicated
[2022-07-01 07:40] LABS: Creatinine Clr Calc Pharmacy 147.3; Estimated Glomerular Filt Rate > 60
[2022-07-01 08:00] VITALS: BP 227/107; PULSE 85; RESP 16; TEMP 36.8
[2022-07-01] MEDS: oxyCODONE HCl Immed Release 5 MG TABLET PO (09:16)
[2022-07-01] MEDS: amLODIPine Besylate 5 MG TABLET PO (09:16)
[2022-07-01] MEDS: Ibuprofen 600 MG TABLET PO (09:16)
[2022-07-01] MEDS: 0.9 % Sodium Chloride Flush 10 ML SYRINGE IVFLUSH (09:17)
[2022-07-01] MEDS: 0.9 % Sodium Chloride Flush 3 ML SYRINGE IVFLUSH (09:17)
[2022-07-01 10:30] VITALS: BP 158/67
--- NOTE | 2022-07-01 11:37 | PM.DS ---
DS: Providers Provider Date of Service: 07/01/22 Date of admission: 06/28/22 08:02 Primary care physician: Timbo Gracia DO Consults: 06/28/22 15:19 Consult to Infectious Diseases Routine Consulting Provider: Phoebe Alexander Reason for consultation: osteomyelitis , septic IP joint right thumb 06/28/22 16:57 Consult to Hospitalist Routine Consulting Provider: Hospitalist Reason For Exam: JULIAN with post op respiratory insufficiency DS: Diagnosis Discharge Diagnosis (1) JULIAN (obstructive sleep apnea): Status: Inactive (2) Amputation of left thumb: Status: Acute (3) Dog bite of right thumb with infection: Status: Acute (4) Septic joint of right hand: Status: Acute DS: Summary Hospital Course Hospital Course: 46 yo male underweant successful ?1. ? Right thumb IP? joint I&D, and culture of bone ?2. Right thumb distal phalanx osteomyelitis I&D and culture bone?3. Left thumb distal phalanx level revision amputation?4. Left thumb excision of nail matrices?5.? Left hand I and D of multiple dog bite wounds including the dorsal aspect of the 1st metacarpal, the mid palm wound, the index finger paronychia wound down to bone, and the 3rd web space flap type wound. 6.? Loose closure of 3rd webspace flap type wound He was transitioned to PACU and then to the floor to recover. During his stay he continued with IV abx-vancomycin until cultures returned and he was transitioned to Ceftriaxone 2 g Iv daily and Levaquin 750 po daily 6 weeks . He will have Weekly creatinine and cbc and sgot . Prior to discharge, dressings were changes , incisions clean ,dry and intact. Re-dressed with xeroform and gauze. He will see us in the office for post op appt 07/07/22. Time Spent with Patient Time attestation: Total time spent providing and/or coordinating discharge services: Discharge coordination time: Less than 30 minutes Quality: Safe Use of Opioids Does Pt have an Active Cancer Diagnosis on the Problem List?: No Quality: Stroke Does the patient have a stroke diagnosis?: No Physical Exam Vital Signs: Vital Signs: Last Vital Signs Temp 98.2 F 07/01/22 08:00 Pulse 85 07/01/22 08:00 Resp 16 07/01/22 08:00 BP 227/107 H 07/01/22 08:00 Pulse Ox 92 07/01/22 03:02 O2 Del Method 07/01/22 08:00 O2 Flow Rate 8 06/28/22 13:46 FiO2 25 06/28/22 15:46 BMI result Body Mass Index 38.0 Const: General: cooperative, healthy appearing and no acute distress Resp: Effort & Inspection: normal respiratory effort and able to speak in complete sentences Cardio: Rate: regular rate Peripheral pulses: Peripheral pulses 2+ throughout GI: Palpation (GI): Soft to palpation Skin: General skin exam: no rashes or lesions noted Extrem: Other: bilat hands splint and dressings clean dry and intact. Pulses present DS: Data Data Completed and Pending Completed studies during hospitalization [Text1]: Procedures Excision of Right Hand Subcutaneous Tissue and Fascia, Open Approach (05/12/22) Resection of Finger Nail, External Approach (05/12/22) Labs on day of discharge: Laboratory Results - last 24 hr 06/30/22 07/01/22 11:11 06:56 Creatinine 0.83 Estim Creat Clear Calc 147.3 Estimated GFR > 60 Vancomycin Trough 8.7 L Preliminary micro results at discharge 06/28/22 Unknown Anaerobic Culture - Preliminary Thumb Right - Thumb No growth to date. 06/28/22 Unknown Anaerobic Culture - Preliminary Thumb Right - Thumb Culture in progress. Discharge Plan Discharge Anticipated Discharge Date/Time: 07/01/22 10:03 Patient Disposition: Home Health Service Discharge Diagnosis: I&D right thumb, left hand Referrals: [facility] [Other] - 1 Week Andreas MYERS [Outside] - 1 Week Ubaldo Andrade PA-C [Physician [employer]] - 1 Week (07/07/22 10:30 [facility] Ubaldo Andrade PA-C) Discharge Medications: New acetaminophen 325 mg Tablet 650 mg PO Q6H PRN (Reason: Pain, Mild (Pain Scale 1-3)) 30 Days Qty: 240 0RF ibuprofen 600 mg Tablet 600 mg PO Q8H PRN (Reason: Pain, Mild (Pain Scale 1-3)) 30 Days Qty: 90 0RF levofloxacin 750 mg Tablet 750 mg PO Q24H 42 Days Qty: 42 0RF ceftriaxone 2 gram Recon Soln 2 g IV Q24H 42 Days Qty: 25 3RF oxycodone 5 mg Tablet 5 mg PO Q4H PRN (Reason: Pain, Moderate (Pain Scale 4-6) 7 Days Qty: 42 0RF Rx Instructions: Partial Fill upon patient request. Continued multivitamin Tablet 1 tab PO DAILY omeprazole 20 mg Capsule,Delayed Release(Dr/Ec) 20 mg PO DAILY PRN (Reason: Heartburn) Discharge Orders: Discharge Order (Routine); Ordered 07/01/22 Ordered By: Ubaldo Andrade Diet: Regular diet Activity on Discharge: As tolerated Stand Alone Forms: Patient Portal Discharge page Care Plan Goals: Restore function of bilat hands Health Concerns: Monitor infection Plan of Treatment: IV abx wound care Assessment: as above
[2022-07-01 11:39] VITALS: PULSE 82; RESP 16; TEMP 36.8; O2SAT 94
--- NOTE | 2022-07-01 11:50 | MHC.CM.PN ---
Male 46 S/P Thumb amp Osteo+ Patient is dc today with IV ABX Home infusion. [facility] will provide home services. Carissa [facility] liason has provided IV ABX administration education today. Patient will discharge after todays dose of Ceftriaxone at 2pm today. The patient has arranged for transportation home.
[2022-07-01] MEDS: cefTRIAXone sodium 2 GM in 0.9 % Sodium Chloride 50 ML IV (12:37)
[2022-07-01] MEDS: levoFLOXacin 750 MG TABLET PO (12:38)
--- NOTE | 2022-07-01 15:58 | P.F2F_ITS ---
Service Date Service Date: 07/01/22 Encounter Date of encounter: 07/01/22 Reasons for Services Signs and symptoms assessed: bilat hand pain, swelling Reason for senior care: medication management and medication treatment MD Overseeing Care: Carissa Serrato Homebound: Leaving the home is medically contraindicated at this time without the asist of a device and/or another person due th the listed conditions above and below. Reason homebound: other (home iv infusion) Certification: Based on the above findings, I certify that this patient is confined to the home and needs intermittent senior care care, physical therapy and/or speech therapy, or continues to need occupational therapy. The patient is under my care, and I have initiated the establishment of the plan of care. The patient will be followed by a physician who will periodically review the plan of care.
== END 2022-07-01 16:14 | disposition home health service (06) | DRG 316 ==
LOC: HO.SSSA 10:40 → HO.IMC 17:14
PROVIDERS: Nurse Practitioner; Admitting Provider Orthopaedic Surgery; PCP Internal Medicine; Visit Provider Orthopaedic Surgery
PROC: 0X6M0Z3 Detachment at Left Thumb, Low, Open Approach (ICD-10-PCS; principal; 2022-06-28 09:20)
PROC: 0X6M0Z3 Detachment at Left Thumb, Low, Open Approach (ICD-10-PCS; 2022-06-28 09:20)
DX: S68.123A Partial traumatic metacarpophalangeal amputation of left middle finger, initial encounter (principal); M00.9 Pyogenic arthritis, unspecified; E78.00 Pure hypercholesterolemia, unspecified; S61.451S Open bite of right hand, sequela; S61.452A Open bite of left hand, initial encounter; L08.9 Local infection of the skin and subcutaneous tissue, unspecified; K21.9 Gastro-esophageal reflux disease without esophagitis; R06.89 Other abnormalities of breathing; M86.9 Osteomyelitis, unspecified; W54.0XXS Bitten by dog, sequela; W54.0XXA Bitten by dog, initial encounter; E66.9 Obesity, unspecified; Z68.38 Body mass index [BMI] 38.0-38.9, adult; G47.33 Obstructive sleep apnea (adult) (pediatric); Z86.16 Personal history of COVID-19; Z87.891 Personal history of nicotine dependence; Z79.899 Other long term (current) drug therapy
CPT/HCPCS: 36415; 36573; 80202; 82565; 87070; 87073; 87077; 87186; 87205; 87635; C1751; C1894; J0131; J0171; J0330; J0696; J1100; J1885; J2250; J2405; J3010; J3370

== ENCOUNTER 2022-07-06 12:03 | Outpatient (REF) | payer MEDICAID, SELFPAY ==
[2022-07-06 12:07] LABS: MANUAL DIFF FLAG NO
[2022-07-06 12:20] LABS: Basophils Absolute Auto 0.1 X10*3/uL (0.0-0.2); Basophils Percent Auto 0.5 % (0-2); Eosinophils Absolute Auto 0.2 X10*3/uL (0.0-0.4); Eosinophils Percent Auto 1.8 % (0-4); Hematocrit 42.7 % (42.0-52.0); Hemoglobin 13.5 g/dl (14.0-18.0); Imm Gran Abs Auto 0.11 X10*3/uL (0.00-0.03); Lymphocytes Absolute Auto 2.2 X10*3/uL (1.2-4.9); Lymphocytes Percent Auto 19.9 % (20-40); Mean Corpuscular HGB Conc 31.6 g/dl (31.0-36.0); Mean Corpuscular Hemoglobin 25.9 pg (27.0-33.0); Mean Corpuscular Volume 81.8 fL (80.0-98.0); Mean Platelet Volume 11.1 fL (9.4-12.4); Monocytes Absolute Auto 0.6 X10*3/uL (0.1-1.2); Monocytes Percent Auto 5.4 % (2-11); Neutrophils Absolute Auto 8.1 x10*3/uL (2.0-8.3); Neutrophils Percent Auto 71.4 % (45-73); Platelet Count 291 X10*3/uL (160-400); Red Blood Count 5.22 X10*6/uL (4.60-5.80); White Blood Count 11.3 X10*3/uL (4.8-10.8)
[2022-07-06 13:11] LABS: Alanine Aminotransferase 20 U/L (0-40); Albumin Level 4.2 g/dL (3.5-5.0); Alkaline Phosphatase 92 U/L (39-117); Aspartate Amino Transferase 16 U/L (5-37); Estimated Glomerular Filt Rate > 60; Total Protein 6.7 g/dL (6.5-8.0)
[2022-07-06 13:32] LABS: Bilirubin Direct < 0.2 mg/dL (0.0-0.5); Bilirubin Total 0.2 mg/dL (0.0-1.0)
== END 2022-07-06 12:04 | disposition home or self-care (01) ==
LOC: HO.HVNA 12:03
PROVIDERS: Visit Provider Internal Medicine
DX: S61.051D Open bite of right thumb without damage to nail, subsequent encounter (principal)
CPT/HCPCS: 36415; 80076; 82565; 85025

== ENCOUNTER → 2022-07-07 11:20 | Outpatient (BNVA) | payer MEDICAID, SELFPAY | PROVIDERS: PCP Internal Medicine; Visit Provider Internal Medicine | DX: S68.012A Complete traumatic metacarpophalangeal amputation of left thumb, initial encounter (principal); L08.9 Local infection of the skin and subcutaneous tissue, unspecified; W54.0XXA Bitten by dog, initial encounter; M00.9 Pyogenic arthritis, unspecified; M86.8X3 Other osteomyelitis, forearm; B95.4 Other streptococcus as the cause of diseases classified elsewhere; A28.0 Pasteurellosis | CPT/HCPCS: 99212 ==

== ENCOUNTER 2022-07-13 12:36 | Outpatient (REF) | payer MEDICAID, SELFPAY ==
[2022-07-13 12:43] LABS: MANUAL DIFF FLAG NO
[2022-07-13 12:50] LABS: Basophils Absolute Auto 0.1 X10*3/uL (0.0-0.2); Basophils Percent Auto 0.6 % (0-2); Eosinophils Absolute Auto 0.2 X10*3/uL (0.0-0.4); Eosinophils Percent Auto 1.9 % (0-4); Hematocrit 44.5 % (42.0-52.0); Hemoglobin 13.9 g/dl (14.0-18.0); Imm Gran Abs Auto 0.07 X10*3/uL (0.00-0.03); Imm Gran Pct Auto 0.6 % (0.0-0.4); Lymphocytes Absolute Auto 2.5 X10*3/uL (1.2-4.9); Lymphocytes Percent Auto 22.2 % (20-40); Mean Corpuscular HGB Conc 31.2 g/dl (31.0-36.0); Mean Corpuscular Hemoglobin 25.9 pg (27.0-33.0); Mean Platelet Volume 11.2 fL (9.4-12.4); Monocytes Absolute Auto 0.8 X10*3/uL (0.1-1.2); Monocytes Percent Auto 6.9 % (2-11); Neutrophils Absolute Auto 7.7 x10*3/uL (2.0-8.3); Neutrophils Percent Auto 67.8 % (45-73); Platelet Count 269 X10*3/uL (160-400); Red Blood Count 5.36 X10*6/uL (4.60-5.80); White Blood Count 11.4 X10*3/uL (4.8-10.8)
[2022-07-13 13:48] LABS: Alanine Aminotransferase 18 U/L (0-40); Albumin Level 4.2 g/dL (3.5-5.0); Alkaline Phosphatase 92 U/L (39-117); Aspartate Amino Transferase 17 U/L (5-37); Bilirubin Direct < 0.2 mg/dL (0.0-0.5); Bilirubin Total 0.3 mg/dL (0.0-1.0); Estimated Glomerular Filt Rate > 60; Total Protein 6.9 g/dL (6.5-8.0)
== END 2022-07-13 12:37 | disposition home or self-care (01) ==
LOC: HO.HVNA 12:36
PROVIDERS: Visit Provider Internal Medicine
DX: M86.9 Osteomyelitis, unspecified (principal)
CPT/HCPCS: 36415; 80076; 82565; 85025

== ENCOUNTER 2022-07-20 16:10 | Outpatient (REF) | payer MEDICAID, SELFPAY ==
[2022-07-20 16:23] LABS: Basophils Percent Auto 0.5 % (0-2); Lymphocytes Absolute Auto 1.7 X10*3/uL (1.2-4.9); Lymphocytes Percent Auto 19.4 % (20-40); PLT CLUMP 1; SCAN SMEAR FLAG 1
[2022-07-20 16:25] LABS: Eosinophils Absolute Auto 0.1 X10*3/uL (0.0-0.4); Eosinophils Percent Auto 0.9 % (0-4); Hematocrit 44.1 % (42.0-52.0); Hemoglobin 13.8 g/dl (14.0-18.0); Imm Gran Abs Auto 0.04 X10*3/uL (0.00-0.03); Imm Gran Pct Auto 0.5 % (0.0-0.4); MANUAL DIFF FLAG SCAN; Mean Corpuscular HGB Conc 31.3 g/dl (31.0-36.0); Mean Corpuscular Hemoglobin 25.2 pg (27.0-33.0); Mean Corpuscular Volume 80.5 fL (80.0-98.0); Mean Platelet Volume 10.7 fL (9.4-12.4); Monocytes Absolute Auto 0.7 X10*3/uL (0.1-1.2); Monocytes Percent Auto 8.3 % (2-11); Neutrophils Absolute Auto 6.1 x10*3/uL (2.0-8.3); Neutrophils Percent Auto 70.4 % (45-73); Red Blood Count 5.48 X10*6/uL (4.60-5.80); Red Cell Distribution Width 14.4 % (11.0-16.0)
[2022-07-20 16:28] LABS: White Blood Count 8.7 X10*3/uL (4.8-10.8)
[2022-07-20 16:56] LABS: Platelet Count 231 X10*3/uL (160-400); SLIDE REVIEW VERIFIED
[2022-07-20 17:20] LABS: Alanine Aminotransferase 25 U/L (0-40); Albumin Level 4.3 g/dL (3.5-5.0); Alkaline Phosphatase 94 U/L (39-117); Aspartate Amino Transferase 20 U/L (5-37); Bilirubin Total 0.6 mg/dL (0.0-1.0); Estimated Glomerular Filt Rate > 60; Total Protein 6.8 g/dL (6.5-8.0)
[2022-07-20 17:42] LABS: Bilirubin Direct 0.2 mg/dL (0.0-0.5)
== END 2022-07-20 16:11 | disposition home or self-care (01) ==
LOC: HO.HVNA 16:10
PROVIDERS: Visit Provider Internal Medicine
DX: M86.9 Osteomyelitis, unspecified (principal)
CPT/HCPCS: 36415; 80076; 82565; 85025

== ENCOUNTER 2022-07-26 16:23 | Outpatient (REF) | payer MEDICAID, SELFPAY | END 2022-07-26 16:24 | disposition home or self-care (01) | LOC: HO.HOSX 16:23 | PROVIDERS: Visit Provider Orthopaedic Surgery | DX: Z13.89 Encounter for screening for other disorder (principal) ==

== ENCOUNTER 2022-07-28 15:04 | Outpatient (REF) | payer MEDICAID, SELFPAY ==
[2022-07-28 15:07] LABS: MANUAL DIFF FLAG NO
[2022-07-28 15:16] LABS: Basophils Absolute Auto 0.1 X10*3/uL (0.0-0.2); Basophils Percent Auto 0.4 % (0-2); Eosinophils Absolute Auto 0.1 X10*3/uL (0.0-0.4); Eosinophils Percent Auto 1.2 % (0-4); Hematocrit 42.3 % (42.0-52.0); Hemoglobin 13.3 g/dl (14.0-18.0); Imm Gran Abs Auto 0.06 X10*3/uL (0.00-0.03); Imm Gran Pct Auto 0.5 % (0.0-0.4); Lymphocytes Absolute Auto 1.6 X10*3/uL (1.2-4.9); Lymphocytes Percent Auto 13.8 % (20-40); Mean Corpuscular HGB Conc 31.4 g/dl (31.0-36.0); Mean Corpuscular Hemoglobin 25.3 pg (27.0-33.0); Mean Corpuscular Volume 80.4 fL (80.0-98.0); Monocytes Absolute Auto 0.5 X10*3/uL (0.1-1.2); Monocytes Percent Auto 4.2 % (2-11); Neutrophils Percent Auto 79.9 % (45-73); Platelet Count 157 X10*3/uL (160-400); Red Blood Count 5.26 X10*6/uL (4.60-5.80); White Blood Count 11.3 X10*3/uL (4.8-10.8)
[2022-07-28 15:45] LABS: Alanine Aminotransferase 23 U/L (0-40); Albumin Level 3.9 g/dL (3.5-5.0); Alkaline Phosphatase 85 U/L (39-117); Aspartate Amino Transferase 17 U/L (5-37); Bilirubin Direct < 0.2 mg/dL (0.0-0.5); Bilirubin Total 0.4 mg/dL (0.0-1.0); Estimated Glomerular Filt Rate > 60; Total Protein 6.3 g/dL (6.5-8.0)
== END 2022-07-28 15:05 | disposition home or self-care (01) ==
LOC: HO.HVNA 15:04
PROVIDERS: Visit Provider Internal Medicine
DX: M86.9 Osteomyelitis, unspecified (principal)
CPT/HCPCS: 36415; 80076; 82565; 85025

== ENCOUNTER 2022-08-05 11:53 | Outpatient (REF) | payer MEDICAID, SELFPAY ==
[2022-08-05 13:49] LABS: MANUAL DIFF FLAG NO
[2022-08-05 13:57] LABS: Basophils Absolute Auto 0.1 X10*3/uL (0.0-0.2); Basophils Percent Auto 0.6 % (0-2); Eosinophils Absolute Auto 0.1 X10*3/uL (0.0-0.4); Eosinophils Percent Auto 1.3 % (0-4); Hematocrit 44.1 % (42.0-52.0); Hemoglobin 13.8 g/dl (14.0-18.0); Imm Gran Abs Auto 0.07 X10*3/uL (0.00-0.03); Imm Gran Pct Auto 0.7 % (0.0-0.4); Lymphocytes Absolute Auto 2.7 X10*3/uL (1.2-4.9); Lymphocytes Percent Auto 27.6 % (20-40); Mean Corpuscular HGB Conc 31.3 g/dl (31.0-36.0); Mean Corpuscular Hemoglobin 25.8 pg (27.0-33.0); Mean Corpuscular Volume 82.4 fL (80.0-98.0); Mean Platelet Volume 10.5 fL (9.4-12.4); Monocytes Absolute Auto 0.7 X10*3/uL (0.1-1.2); Monocytes Percent Auto 7.1 % (2-11); Neutrophils Absolute Auto 6.2 x10*3/uL (2.0-8.3); Neutrophils Percent Auto 62.7 % (45-73); Platelet Count 260 X10*3/uL (160-400); Red Blood Count 5.35 X10*6/uL (4.60-5.80); Red Cell Distribution Width 14.4 % (11.0-16.0); White Blood Count 9.9 X10*3/uL (4.8-10.8)
[2022-08-05 14:11] LABS: Cholesterol 208 mg/dL; Estimated Glomerular Filt Rate > 60; HDL Cholesterol 37 mg/dL; LDL Cholesterol Calculated 129 mg/dl; Triglycerides 214 mg/dL
== END 2022-08-05 11:54 | disposition home or self-care (01) ==
LOC: HO.HVNA 11:53
PROVIDERS: Visit Provider Internal Medicine
DX: M86.9 Osteomyelitis, unspecified (principal); Z79.899 Other long term (current) drug therapy
CPT/HCPCS: 80061; 82565; 85025

== ENCOUNTER 2022-08-19 14:47 | Outpatient (REF) | payer MEDICAID, SELFPAY | END 2022-08-19 14:48 | disposition home or self-care (01) | LOC: HO.HOSX 14:47 | PROVIDERS: Visit Provider Orthopaedic Surgery | DX: Z13.89 Encounter for screening for other disorder (principal) ==

== ENCOUNTER 2022-09-29 15:39 | Outpatient (REF) | payer MEDICAID, SELFPAY ==
--- NOTE | ~2022-09-29 | XR_ITS ---
EXAMINATION: XR HAND, RIGHT CLINICAL INFORMATION: Pain. COMPARISON: Radiographs dated 06/15/2022. TECHNIQUE: PA, lateral, and oblique views of the right hand. FINDINGS: Bony alignment and mineralization are normal. There is mild osteoarthritic change of the interphalangeal joint of the left, the first metacarpophalangeal joint and the the first carpometacarpal joint. No fracture or dislocation is seen. There is no abnormal bone erosion. No focal soft tissue swelling, gas or foreign body is seen. XR/XR hand RT min 3V IMPRESSION: There are mild osteoarthritic changes of the thumb, as detailed. No fracture or dislocation is seen. There is no abnormal bony erosive change. EXAMINATION: XR HAND, LEFT CLINICAL INFORMATION: Pain. COMPARISON: None. TECHNIQUE: PA, lateral, and oblique views of the left hand. FINDINGS: Bony alignment and mineralization are normal. There is an ulnar positive variance. There has been a prior partial amputation of the distal phalanx of the left third finger. The amputation margin is relatively sharp. There is mild adjacent soft tissue swelling, without soft tissue gas or foreign body noted. A minimal radiodense satisfactory is seen within the soft tissues of the left. Orthopaedic hardware is applied to the distal left radius and ulna. No fracture or dislocation is seen. There is no bony erosive change or periosteal thickening. IMPRESSION: There is a sharp amputation margin noted of the left third distal phalanx. There is adjacent mild soft tissue swelling, for which clinical correlation is recommended. No soft tissue gas or foreign body is seen. There is no abnormal bone erosion or periosteal thickening.
--- NOTE | ~2022-09-29 | XR_ITS ---
EXAMINATION: XR HAND, RIGHT CLINICAL INFORMATION: Pain. COMPARISON: Radiographs dated 06/15/2022. TECHNIQUE: PA, lateral, and oblique views of the right hand. FINDINGS: Bony alignment and mineralization are normal. There is mild osteoarthritic change of the interphalangeal joint of the left, the first metacarpophalangeal joint and the the first carpometacarpal joint. No fracture or dislocation is seen. There is no abnormal bone erosion. No focal soft tissue swelling, gas or foreign body is seen. XR/XR hand LT min 3V IMPRESSION: There are mild osteoarthritic changes of the thumb, as detailed. No fracture or dislocation is seen. There is no abnormal bony erosive change. EXAMINATION: XR HAND, LEFT CLINICAL INFORMATION: Pain. COMPARISON: None. TECHNIQUE: PA, lateral, and oblique views of the left hand. FINDINGS: Bony alignment and mineralization are normal. There is an ulnar positive variance. There has been a prior partial amputation of the distal phalanx of the left third finger. The amputation margin is relatively sharp. There is mild adjacent soft tissue swelling, without soft tissue gas or foreign body noted. A minimal radiodense satisfactory is seen within the soft tissues of the left. Orthopaedic hardware is applied to the distal left radius and ulna. No fracture or dislocation is seen. There is no bony erosive change or periosteal thickening. IMPRESSION: There is a sharp amputation margin noted of the left third distal phalanx. There is adjacent mild soft tissue swelling, for which clinical correlation is recommended. No soft tissue gas or foreign body is seen. There is no abnormal bone erosion or periosteal thickening.
== END 2022-09-29 15:40 | disposition home or self-care (01) ==
LOC: HO.HOSX 15:39
PROVIDERS: Visit Provider Orthopaedic Surgery
DX: S61.051D Open bite of right thumb without damage to nail, subsequent encounter (principal); S68.113D Complete traumatic metacarpophalangeal amputation of left middle finger, subsequent encounter; W54.0XXD Bitten by dog, subsequent encounter
CPT/HCPCS: 73130

== ENCOUNTER 2023-03-15 15:30 | Outpatient (REF) | payer OTHER, SELFPAY ==
[2023-03-15 17:42] LABS: Hematocrit 47.9 % (42.0-52.0); Hemoglobin 14.9 g/dl (14.0-18.0); Mean Corpuscular HGB Conc 31.1 g/dl (31.0-36.0); Mean Corpuscular Hemoglobin 25.6 pg (27.0-33.0); Mean Corpuscular Volume 82.3 fL (80.0-98.0); Mean Platelet Volume 10.4 fL (9.4-12.4); Platelet Count 307 X10*3/uL (160-400); Red Blood Count 5.82 X10*6/uL (4.60-5.80); Red Cell Distribution Width 14.5 % (11.0-16.0); White Blood Count 12.3 X10*3/uL (4.8-10.8)
[2023-03-15 18:02] LABS: Estimated Average Glucose 120 mg/dL; Hemoglobin A1c % 5.8 %
[2023-03-15 18:22] LABS: Alanine Aminotransferase 20 U/L (0-40); Albumin Level 4.1 g/dL (3.5-5.0); Alkaline Phosphatase 79 U/L (39-117); Anion Gap 13 (12-20); Aspartate Amino Transferase 13 U/L (5-37); Bilirubin Total 0.2 mg/dL (0.0-1.0); Blood Urea Nitrogen 11 mg/dL (9-16); Calcium 9.1 mg/dL (8.4-10.2); Carbon Dioxide 26 mmol/L (22-29); Chloride 104 mmol/L (96-108); Estimated Glomerular Filt Rate > 60; Glucose Random 95 mg/dL (60-115); Iron 50 mcg/dL (45-160); Percent Iron Saturation 19 % (15-50); Potassium 4.2 mmol/L (3.3-5.1); Sodium 139 mmol/L (135-145); Total Iron Binding Capacity 266 mcg/dL (228-428); Total Protein 6.8 g/dL (6.5-8.0); Unsaturated Iron Binding 216 ug/dL
[2023-03-15 18:37] LABS: Ferritin 64 ng/mL (20-250); TSH reflex Free T4 3.47 uIU/mL (0.32-4.0); Vitamin D 25-OH Total 19.9 ng/mL (>30)
[2023-03-16 03:26] LABS: Hepatitis A Antibody IgG Nonreactive (Nonreactive); ~Hepatitis A Antibody IgG 0.36 S/CO (0.00-0.99)
[2023-03-16 03:27] LABS: HBS Num1 0.01 mIU/mL (0-7.99); HBc Num1 0.07 S/CO (0.00-0.79); HBsAGNum1 0.31 S/CO (0.00-0.99); HIV AB/AG Nonreactive (Nonreactive); HIV Num 1 0.07 S/CO (0.00-0.99); Hepatitis B Core Antibody Nonreactive (Nonreactive); Hepatitis B Surface Antigen Negative (Negative); ~HepC Num1 15.07 S/CO (0.00-0.79); ~Hepatitis B Surface Antibody NONREACTIVE (Nonreactive); ~Hepatitis C Antibody Reactive (Nonreactive)
[2023-03-17 19:39] LABS: HCV Log PCR 6.75 Log IU/mL (NOT DETECTED); HepC Viral Load 5560000 IU/mL (NOT DETECTED)
[2023-03-18 21:23] LABS: Transglutaminase IgA <1.0 U/mL
[2023-03-19 12:24] LABS: Hepatitis B Viral DNA Qn - cp NOT DETECTED Log IU/mL (NOT DETECTED); Hepatitis B Viral DNA Qn-IU/mL NOT DETECTED (NOT DETECTED)
[2023-03-21 15:54] LABS: Immunoglobulin A 152 mg/dL (47-310)
== END 2023-03-15 15:31 | disposition home or self-care (01) ==
LOC: HO.LAB 15:30
PROVIDERS: PCP Internal Medicine; Visit Provider Internal Medicine
DX: Z11.4 Encounter for screening for human immunodeficiency virus [HIV] (principal); R10.9 Unspecified abdominal pain; R19.7 Diarrhea, unspecified; R76.8 Other specified abnormal immunological findings in serum
CPT/HCPCS: 36415; 80053; 82306; 82728; 82784; 83036; 83540; 84443; 85027; 86364; 86704; 86706; 86708; 86803; 87340; 87389; 87517; 87522; 99202

== ENCOUNTER 2023-03-15 15:30 | Outpatient (AMB) | payer OTHER, SELFPAY ==
--- NOTE | 2023-03-15 15:38 | A.OFFVIS_ITS ---
Intake Vital Signs 03/15/23 15:40 Height 5 ft 11 in Weight 291 lb 0.163 oz BMI 40.6 BP 131/70 Blood Pressure Location Lt brachial Position Sitting Pulse 93 Intake Visit Reasons: Abnormal bowel movement Intake Note: Lai presents in the office as a new patient for abnormal bowel movements. CC: He states that he has a lot of issues with his stomach. He has up to 10 BM a day. Small, pasty, stomach bloating. Can only eat a little and will get hungry throughout the day. Fatigued a lot and he got more results from his results and was told he may have Hep C. 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 Reports change in stool consistency and frequency x 4 years. Reports going up to 6- 8 times a day to pass BMs which are small in amount and pasty, thin. No blood in stool. Assoc with bloating and epigastric pain. 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 Since December has been experiencing early satiety and nausea. Occurs more often with fatty foods. Has not noticed any unintentional weight loss in fact had 60 lbs weight gain during pandemic due to minimal activity. Recently also noticing urinary urgency. Of note - pt volunteered to donate plasma recently and was told his HCV Ab is positive. Looking for sarai henderson. [facility] Medical History Acute respiratory failure with hypoxemia Dog bite History of COVID-19 Hypercholesteremia Open fracture of right thumb JULIAN (obstructive sleep apnea) Surgical History History of incision and drainage Social History Household Members: Family Housing: House Do you presently have visiting nurse or other home services: No Patient Tobacco Use Status: Former Tobacco user Quit Date: 2017 e-Cigarette/Vaping Use: Never Used Substance Use Type: Marijuana service: No Current occupational status: employed Physical Exam Vital Signs: Last Vital Signs Pulse 93 03/15/23 15:40 BP 131/70 03/15/23 15:40 BMI result Body Mass Index 40.6 Gen appear: NAD HEENT: nonicteric, no cervical lymphadenopathy Chest: CTA CVS: Regular S1/S2 Abd: soft, nontender, nondistended, bowel sounds + Ext: no peripheral edema Neuro: A/Ox3, noted to move all extremities spontaneously Psych: interacting appropriately Assessment & Plan Assessment & Plan (1) Diarrhea: Code(s): R19.7 - Diarrhea, unspecified (2) Abdominal pain: Code(s): R10.9 - Unspecified abdominal pain (3) Hepatitis C antibody positive in blood: Code(s): R76.8 - Other specified abnormal immunological findings in serum Plan 1. Change in bowel habits: Discussed with the pt that based on his description, appears to be secondary to overflow diarrhea due to constipation which is typically assoc with small frequent loose stools. Would recommend a colon clean out with miralax BID. However, due to recent onset of abd pain and bloating, will also check for malabsorption, celiac, IBD, symptomatic cholelithiasis, endocrinopathy such as T2DM or hyperthyroidism. Work up ordered as below. Depending on the results, will review indication for endoscopic evaluation. (He is due for a screenign colo anyway) 2. HCV Ab + Will check HCV RNA and if positive, will check genotype. We will also check HBV serology. Follow up in 6 weeks. Orders: Orders Hepatitis A IgG 03/15/23 R76.8 - Other specified abnormal immunological findings in serum Hepatitis B Surface Antibody 03/15/23 R76.8 - Other specified abnormal immunological findings in serum Hepatitis B Core Antibody 03/15/23 R76.8 - Other specified abnormal immunological findings in serum Hepatitis B Viral DNA Qn 03/15/23 R76.8 - Other specified abnormal immunological findings in serum Hepatitis B Surface Antigen 03/15/23 R76.8 - Other specified abnormal immunological findings in serum Hepatitis C Antibody 03/15/23 R76.8 - Other specified abnormal immunological findings in serum HIV Ab/Ag 03/15/23 R76.8 - Other specified abnormal immunological findings in serum Hepatitis C Viral Load 03/15/23 R76.8 - Other specified abnormal immunological findings in serum Comprehensive Met. Panel 03/15/23 R10.9 - Unspecified abdominal pain, R19.7 - Diarrhea, unspecified Complete Blood Count no Diff 03/15/23 R10.9 - Unspecified abdominal pain, R19.7 - Diarrhea, unspecified Ferritin 03/15/23 R10.9 - Unspecified abdominal pain, R19.7 - Diarrhea, unspecified IRON PROFILE 03/15/23 R10.9 - Unspecified abdominal pain, R19.7 - Diarrhea, unspecified Hemoglobin A1c 03/15/23 R10.9 - Unspecified abdominal pain, R19.7 - Diarrhea, unspecified TSH reflex Free T4 03/15/23 R10.9 - Unspecified abdominal pain, R19.7 - Diarrhea, unspecified Vitamin D 25-OH Total 03/15/23 R10.9 - Unspecified abdominal pain, R19.7 - Diarrhea, unspecified Immunoglobulin A 03/15/23 R10.9 - Unspecified abdominal pain, R19.7 - Diarrhea, unspecified Transglutaminase IgA 03/15/23 R10.9 - Unspecified abdominal pain, R19.7 - Diarrhea, unspecified US abdomen complete 03/15/23 R10.9 - Unspecified abdominal pain, R19.7 - Diarrhea, unspecified Calprotectin, Fecal 03/15/23 R19.7 - Diarrhea, unspecified Medications: New polyethylene glycol 3350 (Miralax) 17 grams PO BID 119 grams 0RF Patient Instructions: 1. Add fiber 2. Start Miralax twice a day and take until you develop loose watery diarrhea and then take as needed 3. Blood work and stool testing has been ordered 4. Ultrasound abd has been ordered 5. Depending on the results you will most likely need a colonscopy +/- EGD Coding Level of Care Code New Pt Level 4 (93095) Diagnoses Diarrhea R19.7 Abdominal pain R10.9 Hepatitis C antibody positive in blood R76.8
[2023-03-15 15:40] VITALS: BP 131/70; PULSE 93; BMI 40.6
== END 2023-03-15 16:05 | disposition home or self-care (01) ==
PROVIDERS: PCP Internal Medicine; Visit Provider Internal Medicine
DX: R19.7 Diarrhea, unspecified (principal); R10.9 Unspecified abdominal pain; R76.8 Other specified abnormal immunological findings in serum
CPT/HCPCS: 99204

== ENCOUNTER 2023-03-25 08:26 | Outpatient (REF) | payer OTHER, SELFPAY ==
--- NOTE | ~2023-03-25 | US_ITS ---
EXAMINATION: US ABDOMEN COMPLETE CLINICAL INFORMATION: Unspecified abdominal pain. COMPARISON: None available. TECHNIQUE: Real-time imaging of the abdominal viscera. Technically limited study secondary to body habitus. FINDINGS: PANCREAS: Limited visualization of pancreatic tail and head. Imaged portion of pancreatic body is unremarkable. ABDOMINAL AORTA: Imaged portions are nonaneurysmal. Limited visualization due to bowel gas. INFERIOR VENA CAVA: Visualized portions are normal. LIVER: Liver measures 19.6 cm, hepatomegaly. Diffuse increase in echogenicity of the liver is characteristic of primary hepatocellular disease, possibly due to hepatic steatosis and further limits visualization. Right hepatic cysts, largest 0.9 x 0.5 x 0.8 cm with thin septation and 0.7 x 0.6 x 0.5 cm. GALLBLADDER: No gallbladder wall thickening. No gallstones. COMMON BILE DUCT: Normal in caliber measuring 0.4 cm in diameter. RIGHT KIDNEY: 1.0 x 1.1 x 1.5 cm lower pole cyst with mural echogenicity characteristic of calcification. No hydronephrosis. No renal calculi. Limited visualization. The kidney measures 12.2 cm in maximum dimension. LEFT KIDNEY: No hydronephrosis. No renal calculi. Limited visualization. The kidney measures 12.1 cm in maximum dimension. SPLEEN: Normal. The spleen measures 12.5 cm in maximum dimension. FREE FLUID: None. US/US abdomen complete IMPRESSION: 1. Hepatomegaly. Diffuse increase in echogenicity of the liver is characteristic of primary hepatocellular disease, possibly due to hepatic steatosis and severely limits visualization. 2. Right hepatic cysts, largest 0.9 cm with thin septation. 3. Right renal 1.5 cm mildly complex cyst with mural echogenicity characteristic of calcification. 4. Limited visualization due to bowel gas and body habitus. CT scan should be considered for better visualization.
== END 2023-03-25 08:27 | disposition home or self-care (01) ==
LOC: HO.US 08:26
PROVIDERS: Visit Provider Internal Medicine
DX: R10.9 Unspecified abdominal pain (principal); R19.7 Diarrhea, unspecified
CPT/HCPCS: 76700

== ENCOUNTER 2023-03-29 15:25 | Outpatient (REF) | payer OTHER, SELFPAY ==
--- NOTE | ~2023-03-29 | XR_ITS ---
EXAMINATION: XR HAND, LEFT CLINICAL INFORMATION: Pain. COMPARISON: Radiographs dated 09/29/2022. TECHNIQUE: PA, lateral, and oblique views of the left hand. FINDINGS: Bony alignment and mineralization are normal. There is a mild ulnar positive variance. There has been a prior amputation through the base of the third distal phalanx. The amputation margins are sharp. There is stable mild adjacent soft tissue swelling, without soft tissue gas noted. No fracture or dislocation is seen. There is no unusual degenerative change. There is no abnormal bone erosion. A 1 mm radiopaque foreign body is seen within the palmar soft tissues of the left thumb. There is incompletely covered orthopedic hardware within the left wrist. XR/XR hand LT min 3V IMPRESSION: There is a stable well marginated amputation site of the left third distal phalanx. There is stable adjacent mild soft tissue swelling, which may be may reflect prior surgery. Please correlate clinically. No soft tissue gas is seen.
== END 2023-03-29 15:26 | disposition home or self-care (01) ==
LOC: HO.HOSX 15:25
PROVIDERS: PCP Internal Medicine; Visit Provider Orthopaedic Surgery
DX: L08.9 Local infection of the skin and subcutaneous tissue, unspecified (principal); M00.9 Pyogenic arthritis, unspecified; S68.113D Complete traumatic metacarpophalangeal amputation of left middle finger, subsequent encounter; W54.0XXD Bitten by dog, subsequent encounter
CPT/HCPCS: 73130; 99212

== ENCOUNTER 2023-03-29 15:25 | Outpatient (AMB) | payer OTHER, SELFPAY ==
[2023-03-29 15:42] VITALS: BMI 40.6
--- NOTE | 2023-03-29 15:42 | A.OFFVIS_ITS ---
Intake Vital Signs 03/29/23 15:42 Height 5 ft 11 in Weight 291 lb BMI 40.6 Intake Visit Reasons: PO - R Th I&D 06/28/22 AR Intake Note: Lia is a 46 year old right hand dominant male who presents today for a follow up appointment s/p?Right Thumb I&D 09/28/21. States he has no pain and is able to make a full close fist. He has noticed a small tip poking out and wants to know if its his nail growing. 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 He is also S/P a 2nd dog bite to his left hand, DOI: 06/27/22, S/P left middle finger distal phalanx level revision amputation, excision of nail matrices, and I&D of multiple dog bite wounds,?DOS: 06/28/22. He says he is doing well without pain and is able to make a full fist He says he continues to have a hole, or thickened area to the tip of his left middle finger. He denies any symptoms of infection but says he frequently works using his hands and he is concerned he may develop an infection or other injury. He feels there is a hard mass to the tip of his middle finger. No drainage. Nothing growing that needs to be clipped her trimmed. [facility] Medical History Acute respiratory failure with hypoxemia Dog bite History of COVID-19 Hypercholesteremia Open fracture of right thumb JULIAN (obstructive sleep apnea) Surgical History History of incision and drainage Social History Household Members: Family Housing: House Do you presently have visiting nurse or other home services: No Patient Tobacco Use Status: Former Tobacco user Quit Date: 2017 e-Cigarette/Vaping Use: Never Used Substance Use Type: Marijuana service: No Current occupational status: employed Review of Systems Const All systems reviewed & are unremarkable except as noted in HPI and below Physical Exam Vital Signs: BMI result Body Mass Index 40.6 Const General: no acute distress and alert Orientation/consciousness: patient oriented x3 Neuro General: patient oriented x3 Extrem Other: The patient was alert oriented and in no acute distress Concerning the left hand: His middle finger tip is well-healed The wound at the base of the middle finger is well-healed The scar on the tip of the middle finger has a thickened or hard area that measures perhaps 2 mm in diameter, with no evidence of infection or open injury. No drainage. I do not think it is a whole of any kind. I asked him if he has anything growing from this area that he needs to clip were trimmed and he said no. Good soft tissue coverage over the tip of the middle finger. I am not concerned about there being any bone near the edge of the skin Firm area to the tip of the finger, which I think may just be scar tissue He could make a fist and extend all his digits Sensation is intact Cap refill is brisk Radiographs: 3 views of the left hand, with attention to the middle finger, were taken and viewed by me today in clinic. They show a [ ]. He has had an amputation through the base of the distal phalanx, with good soft tissue coverage. In regards to the right thumb: He has appears to have a successful arthrodesis across the IP joint, with the IP joint held in ~15 degrees of flexion. No osteolytic lesions. Psych Appearance: grossly normal Affect: normal affect Attitude: cooperative Assessment & Plan Assessment & Plan (1) Dog bite of right thumb with infection: Code(s): S61.051A - Open bite of right thumb without damage to nail, initial encounter; L08.9 - Local infection of the skin and subcutaneous tissue, unspecified; W54.0XXA - Bitten by dog, initial encounter (2) Septic joint of right hand: Code(s): M00.9 - Pyogenic arthritis, unspecified (3) Amputation of left middle finger: Code(s): S68.113A - Complete traumatic metacarpophalangeal amputation of left middle finger, initial encounter Plan Assessment & Plan: 1. Left middle finger status post through distal phalanx revision amputation 2. Left middle finger excision of nail matrices 3. Left hand I&D of multiple infected dog bite wounds From another dog bite on 06/27/2022 DOS: 06/28/2022 4. Right thumb septic IP joint arthritis S/P I&D x3 5. Right thumb infection, S/P I&D x3 6. Right thumb infected open distal phalanx fracture, S/P I&D x2 7. Right thumb unstable IP joint 8. Right thumb EPL tendon laceration From his 1st bad dog bite, DOI: 05/06/22 DOS: 05/13/22 DOS: 05/21/22 DOS: 06/28/22 The patient appears to be doing well today He was concerned about possibly developing a nail horn to the tip of the middle finger I reviewed his radiographs with him, and he does not appear to have a thin area of skin with any kind of bone exposure. He has good soft tissue coverage and no bone near the edge of his fingertip I suspect this is an area of thickened scar tissue I educated him on the signs of a developing a nail horn If he begins to develop any growth from his fingertip he can follow up to discuss Otherwise no operative intervention warranted at this time He can follow up prn He is happy with the current plan Scribed for Carissa Serrato MD by Claudio Cortes, medical technologist chemistry, on 03/29/23 at 4:00 PM, EST. Orders: Orders XR hand LT min 3V Today M79.642 - Pain in left hand Coding Level of Care Code Est Pt Level 3 (27848) Diagnoses Dog bite of right thumb with infection S61.051A; L08.9; W54.0XXA Septic joint of right hand M00.9 Amputation of left middle finger S68.113A
== END 2023-03-29 16:15 | disposition home or self-care (01) ==
PROVIDERS: PCP Internal Medicine; Visit Provider Orthopaedic Surgery
DX: L08.9 Local infection of the skin and subcutaneous tissue, unspecified (principal); S61.051D Open bite of right thumb without damage to nail, subsequent encounter; S68.113D Complete traumatic metacarpophalangeal amputation of left middle finger, subsequent encounter; W54.0XXD Bitten by dog, subsequent encounter
CPT/HCPCS: 99213

== ENCOUNTER 2023-03-31 11:25 | Outpatient (REF) | payer OTHER, SELFPAY ==
[2023-04-07 14:54] LABS: Hepatitis C Genotype 1a
== END 2023-03-31 11:26 | disposition home or self-care (01) ==
LOC: HO.LAB 11:25
PROVIDERS: PCP Internal Medicine; Visit Provider Internal Medicine
DX: B19.20 Unspecified viral hepatitis C without hepatic coma (principal)
CPT/HCPCS: 36415; 87902

== ENCOUNTER → 2023-04-18 09:23 | Outpatient (BNVA) | payer OTHER, SELFPAY | PROVIDERS: PCP Internal Medicine; Visit Provider Internal Medicine | DX: B19.20 Unspecified viral hepatitis C without hepatic coma (principal) | CPT/HCPCS: 99211 ==

== ENCOUNTER 2023-04-26 07:49 | Outpatient (AMB) | payer OTHER, SELFPAY ==
--- NOTE | 2023-04-26 07:54 | MHC.OFFVIS ---
Intake Vital Signs 04/26/23 07:55 Height 5 ft 11 in Weight 291 lb BMI 40.6 BP 114/82 Blood Pressure Location Rt brachial Position Sitting Pulse 60 Pulse Source Pulse Oximeter Pulse Oximetry (%) 96 Oxygen Delivery Method Room Air Intake Visit Reasons: ENP- Daytime fatigue witnessed apnea and snoring Intake Note: Patient presents for daytime fatigue,apnea and snoring. Allergies No Known Allergies Allergy (Verified 04/26/23 07:56) HPI HPI Comments History of Present Illness Details 47 y/o male patient presents for new in-person visit for sleep consultation. Pt reports that he snores very loudly, and witnessed apnea events. He wakes up gasping and dreaming of drowning. He feels fatigue throughout the day, and easily falling asleep while he sitting in the chair. 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 He gained about 100 lb during the COVID pandemic. Sleep questionnaire: Have you ever been diagnosed with a sleep disorder? No. Have you ever had a sleep study in the past? No. Have you ever been treated for a sleep disorder? No. Do you take medications for a sleep disorder? No Do you snore? Yes. Do you wake up gasping at night? Yes. Do you have episodes of apneas? Yes. If yes, are they witnessed? Yes, by family members. Do you have episodes of nocturnal chest pain or dyspnea? Yes. Do you have difficulty initiating sleep? No. Do you have difficulty maintaining sleep? Yes, wakes up 4-6 times at night. Can't sleep longer than 2 hrs. Do you wake up tired? Yes. Do you have headaches upon awakening? No. Do you wake up with dry mouth or throat? Yes. Do you have GERD? Yes. Do you have nocturia? Yes. Do you have nocturnal leg cramps? Yes, sometimes. Do you have symptoms of restless legs? No. Do you act out your dreams? No. Sleep hygiene questionnaire: What is your usual sleep routine? Usual bedtime is at 10 pm; Usual wake up time is at 7-8 am. Do you take naps? Yes, almost every day for an hour. Is your sleep environment cool, dark, and quiet? Yes. Do you exercise? No. Do you take caffeine or other stimulants? Coffee in the morning, sometimes energy drink. Do you use electronics in bed? Yes. What is your work schedule? 8 am to 3 pm. Hypersomnolence questionnaire: Do you have daytime tiredness or fatigue? Yes. Do you easily fall asleep when inactive? Yes. Have you ever had episodes of sudden weakness? No. Have you ever had episodes of sudden weakness associated with strong emotions? No. [facility] Medical History (Updated 04/26/23 @ 08:26 by Konstantin Alejandro CNP) Acute respiratory failure with hypoxemia Dog bite History of COVID-19 Hypercholesteremia Open fracture of right thumb Surgical History (Updated 04/26/23 @ 07:57 by LAKSHMI Dugan) History of incision and drainage History of surgery on arm Social History Household Members: Family Housing: House Do you presently have visiting nurse or other home services: No Patient Tobacco Use Status: Former Tobacco user Quit Date: 2017 e-Cigarette/Vaping Use: Never Used Substance Use Type: Marijuana service: No Current occupational status: employed Questionnaire [place] Sleepiness Scale Questions Sitting and reading: slight chance of dozing Watching TV: moderate chance of dozing Sitting inactive in a theater, movie etc.: slight chance of dozing As a passenger in a car for an hour without break: high chance of dozing Lying down in the afternoon when circumstances permit: high chance of dozing Sitting and talking to someone: would never doze Sitting quietly after lunch without alcohol: moderate chance of dozing In a car, while stopped for a few minutes in the traffic: moderate chance of dozing ESS < 10: normal, ESS > 12: pathologic: 14 Review of Systems ENT Reports Normal hearing present Neuro Reports Normal hearing present Physical Exam Vital Signs: Last Vital Signs Pulse 60 04/26/23 07:55 BP 114/82 04/26/23 07:55 Pulse Ox 96 04/26/23 07:55 Oxygen Delivery Method Room Air 04/26/23 07:55 BMI result Body Mass Index 40.6 Const General: cooperative and tired appearing Nutritional Appearance: obese HEENT Throat: Yes other (mallampati grade 4) Neck Neck: Yes full ROM and Yes supple Resp Effort & Inspection: normal respiratory effort and able to speak in complete sentences Neuro Cranial nerves: Yes Bilaterally intact EOM present, Yes Normal facial strength present, Yes Midline tongue present, Yes Symmetric palate elevation present, Yes Normal hearing present, Yes Ability to bilaterally rotate head present and Yes Ability to bilaterally elevate shoulders present Cognition (Neuro): normal cognition Gait exam (Neuro): Normal gait present Motor exam (neuro): 5/5 motor strength present throughout, Pronator motor function not present and no tremor noted Psych Appearance: grossly normal Mental Status: mental status grossly normal Speech and movement: Normal speech and movement present Affect: normal affect Attitude: cooperative Assessment & Plan Assessment & Plan (1) Obesity, Class III, BMI 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 Will f/u with pt after study to discuss results and appropriate treatment options. Sleep hygiene education provided and wt reduction advised. Pt to call with any worsening concerns or questions. Orders: Orders RT home sleep study Today E66.01 - Morbid (severe) obesity due to excess calories, G47.19 - Other hypersomnia, G47.33 - Obstructive sleep apnea (adult) (pediatric), R06.83 - Snoring Coding Level of Care Code New Pt Level 4 (75683) Diagnoses Obesity, Class III, BMI 40-49.9 (morbid obesity) E66.01 Excessive daytime sleepiness G47.19 Loud snoring R06.83
[2023-04-26 07:55] VITALS: BP 114/82; PULSE 60; O2SAT 96; BMI 40.6
== END 2023-04-26 08:33 | disposition home or self-care (01) ==
LOC: HO.HSMC 07:49
PROVIDERS: PCP Family Medicine; Visit Provider Nurse Practitioner Family
DX: E66.01 Morbid (severe) obesity due to excess calories (principal); G47.19 Other hypersomnia; R06.83 Snoring
CPT/HCPCS: 99204

== ENCOUNTER → 2023-04-26 07:49 | Outpatient (BNVA) | payer OTHER, SELFPAY | PROVIDERS: PCP Family Medicine; Visit Provider Nurse Practitioner Family | DX: G47.19 Other hypersomnia (principal); R06.83 Snoring; E66.01 Morbid (severe) obesity due to excess calories; Z68.41 Body mass index [BMI] 40.0-44.9, adult | CPT/HCPCS: 99202 ==

== ENCOUNTER 2023-05-27 09:58 | Outpatient (REF) | payer OTHER, SELFPAY ==
--- NOTE | ~2023-05-27 | CT_ITS ---
EXAMINATION: CT ABDOMEN AND PELVIS WITHOUT AND WITH CONTRAST CLINICAL INFORMATION: Other specified diseases of the liver. COMPARISON: Ultrasound abdomen 03/25/2023, CT abdomen and pelvis 10/08/2011. TECHNIQUE: Multidetector volumetric imaging was performed of the abdomen and pelvis before and after the IV administration of 85.0 mL of Omnipaque 300 intravenous contrast. Sagittal and coronal reformatted images were obtained on the technologist's workstation. This CT examination was performed using dose optimization techniques as appropriate, variously including the following: *Automated exposure control *Adjustment of mA and/or kV according to patient size (this includes techniques or standardized protocols for targeted exams where dose is matched to indication/reason for exam; i.e. extremities or head) *Use of iterative reconstruction technique DLP: 1849 mGy-cm FINDINGS: LUNG BASES: The visualized lung bases are unremarkable. LIVER, GALLBLADDER, AND BILIARY TREE: The liver is enlarged measuring 19 cm in length and demonstrates decreased attenuation compared to the spleen on noncontrast imaging consistent with hepatic steatosis. There is focal fatty sparing seen around the gallbladder. There is a 0.9 cm water density cyst in the right lobe of the liver (5:40) unchanged from 10/08/2011 (prior 102:57). No worrisome solid focal hepatic lesion or biliary ductal dilatation is present. The gallbladder is unremarkable with no evidence of radiopaque gallstones, gallbladder wall thickening, or obvious pericholecystic inflammatory changes. PANCREAS: Unremarkable SPLEEN: Spleen is enlarged at 13.7 cm. ADRENAL GLANDS: Unremarkable KIDNEYS AND URETERS: The kidneys are normal in size, shape, and attenuation. No hydronephrosis, hydroureter, or calculi seen. No perinephric stranding. Multiple benign Bosniak class I renal cysts are noted, the largest at the lower pole of the right kidney and at the upper pole of the left kidney, both measuring 1.5 cm which require no additional imaging or follow up. These are larger in size since 2012 which is not unexpected. No solid renal masses are seen. BLADDER: The bladder is only partially filled with a symmetrically thickened wall. GASTROINTESTINAL TRACT: The small and large bowel are unremarkable aside from colonic diverticulosis without diverticulitis. The appendix is unremarkable. ABDOMINAL WALL: No significant hernia is appreciated. LYMPH NODES: No retroperitoneal lymphadenopathy. VASCULAR: Unremarkable PELVIC VISCERA: Unremarkable OSSEOUS STRUCTURES: Degenerative changes are seen, most marked at L5-S1. CT/CT abdomen pelvis wo/w IV con IMPRESSION: 1. Enlarged fatty liver. No worrisome liver mass is seen. 2. Mild splenomegaly. 3. Benign hepatic and renal cysts which require no additional imaging or follow up. 4. Colonic diverticulosis without diverticulitis. 5. Other incidental findings as described above. Fleischner guidelines were followed.
[2023-05-27] MEDS: iohexoL 350 MG/ML 100 ML INFUS..BTL IV (10:25)
== END 2023-05-27 09:59 | disposition home or self-care (01) ==
LOC: HO.CT 09:58
PROVIDERS: PCP Family Medicine; Visit Provider Internal Medicine
DX: K76.89 Other specified diseases of liver (principal); N28.1 Cyst of kidney, acquired
CPT/HCPCS: 74178; Q9967

== ENCOUNTER → 2023-06-15 13:27 | Outpatient (REF) | payer OTHER, SELFPAY | LOC: HO.SL 13:27 | PROVIDERS: PCP Family Medicine; Visit Provider Nurse Practitioner Family | DX: R06.83 Snoring (principal); G47.19 Other hypersomnia; E66.01 Morbid (severe) obesity due to excess calories; G47.33 Obstructive sleep apnea (adult) (pediatric) | CPT/HCPCS: 95806 ==

== ENCOUNTER → 2023-06-15 13:38 | Outpatient (BNV) | payer OTHER, SELFPAY | PROVIDERS: PCP Family Medicine; Visit Provider Psychiatry & Neurology Neurology | DX: G47.33 Obstructive sleep apnea (adult) (pediatric) (principal) | CPT/HCPCS: 95806 ==

== ENCOUNTER 2023-06-22 09:40 | Outpatient (AMB) | payer OTHER, SELFPAY ==
--- NOTE | 2023-06-22 09:40 | A.OFFVIS_ITS ---
Intake Intake Visit Reasons: f/u US - HCV Intake Note: Patient follow up for abdominal pain, HCV and US results. Patient said that he still have the same symptoms as the last follow up. 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 03/15/23: Reports change in stool consistency and frequency x 4 years. Reports going up to 6- 8 times a day to pass BMs which are small in amount and pasty, thin. No blood in stool. Assoc with bloating and epigastric pain. 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 Since December has been experiencing early satiety and nausea. Occurs more often with fatty foods. Has not noticed any unintentional weight loss in fact had 60 lbs weight gain during pandemic due to minimal activity. Recently also noticing urinary urgency. Of note - pt volunteered to donate plasma recently and was told his HCV Ab is positive. Looking for further eval. 06/22/23: Pt booked as televisit today. 1) Was diagnosed with chronic HCV 1a. Tx naiive without cirrhosis. Was started on Epclusa in mid April. Due to complete 07/14. No side effects so far. Reports missing only one dose throughout the duration of treatment otherwise has been very compliant. 2) Cont to report changes in stool i.e m ore frequent and soft/pasty. Thyroid and celiac negative. CT Abd/pel with diverticulosis but otherwise no changes in small or large intestine radiographically. Has never had a screening colo. [facility] Medical History (Updated 06/22/23 @ 12:05 by Mary Anne Young MD) Dog bite History of COVID-19 Open fracture of right thumb Acute respiratory failure with hypoxemia Hypercholesteremia Surgical History History of surgery on arm History of incision and drainage Social History Household Members: Family Housing: House Do you presently have visiting nurse or other home services: No Patient Tobacco Use Status: Former Tobacco user Quit Date: 2017 e-Cigarette/Vaping Use: Never Used Substance Use Type: Marijuana service: No Current occupational status: employed Review of Systems Const All systems reviewed & are unremarkable except as noted in HPI and below Physical Exam video visit: NAD Nontoxic appearing Speaking in full sentences No facial asymmetry Assessment & Plan Assessment & Plan (1) Abdominal pain: Code(s): R10.9 - Unspecified abdominal pain (2) Change in bowel habit: Code(s): R19.4 - Change in bowel habit (3) Chronic hepatitis C virus genotype 1 infection: Code(s): B18.2 - Chronic viral hepatitis C Plan 1. Change in bowel habits: Likely related to irritable bowel syndrome given assoc abd pain which gets better with defecation. Will book him for a colo to evaluate further to r/o IBD, microscopic colitis, chronic infection etc. Plan: - Split PEG prep instructions reviewed and link to online instructions also given 2. Chronic HCV 1a infection - tx naiive, noncirrhotic. Completing last month of Epclusa. Plan: - Check HCV load and LFTs in 4 weeks i.e after completion of tx - If VL undetectable, will need another blood work in 3 months after that to document SVR12. - He was also advised re high risk behaviours assoc with reinfection and transmission - Not immune to HBV, reminded to get this done after he completes the DAA Follow up in 4 months Orders: Orders Hepatitis C Viral Load 07/14/23 B19.20 - Unspecified viral hepatitis C without hepatic coma Liver Panel 07/14/23 B19.20 - Unspecified viral hepatitis C without hepatic coma Medications: New peg 3350-electrolytes 236-22.74-6.74 -5.86 gram (Golytely) as per split prep instructions, until fecal effluent is clear 240 mL PO Q10M 4,000 mL 0RF colonoscopy Coding Level of Care Code Tele Est Pt Level 4 (14144) Diagnoses Abdominal pain R10.9 Change in bowel habit R19.4 Chronic hepatitis C virus genotype 1 infection B18.2
== END 2023-06-22 10:49 | disposition home or self-care (01) ==
LOC: HO.HGI 09:40
PROVIDERS: PCP Family Medicine; Visit Provider Internal Medicine
DX: R10.9 Unspecified abdominal pain (principal); R19.4 Change in bowel habit; B18.2 Chronic viral hepatitis C
CPT/HCPCS: 99214

== ENCOUNTER → 2023-06-22 09:40 | Outpatient (BNVA) | payer OTHER, SELFPAY | PROVIDERS: PCP Family Medicine; Visit Provider Internal Medicine ==

== ENCOUNTER 2023-08-17 10:11 | Outpatient (REF) | payer OTHER, SELFPAY ==
[2023-08-17 11:23] LABS: Alanine Aminotransferase 18 U/L (0-40); Albumin Level 4.2 g/dL (3.5-5.0); Alkaline Phosphatase 76 U/L (39-117); Aspartate Amino Transferase 16 U/L (5-37); Bilirubin Direct < 0.2 mg/dL (0.0-0.5); Bilirubin Total 0.2 mg/dL (0.0-1.0)
[2023-08-19 16:03] LABS: HCV Log PCR <1.18 NOT DETECTED Log IU/mL (NOT DETECTED); HepC Viral Load <15 NOT DETECTED IU/mL (NOT DETECTED)
== END 2023-08-17 10:12 | disposition home or self-care (01) ==
LOC: HO.LAB 10:11
PROVIDERS: PCP Family Medicine; Visit Provider Internal Medicine
DX: B19.20 Unspecified viral hepatitis C without hepatic coma (principal)
CPT/HCPCS: 36415; 80076; 87522

== ENCOUNTER 2023-08-24 08:44 | Day surgery (SDC) | payer OTHER, SELFPAY ==
[2023-08-22 14:40] VITALS: BMI 40.6
--- NOTE | 2023-08-23 12:03 | HO.ANESPROP2 ---
Documented by User: Fiorella Bustamante NP 08/23/23 12:04 HPI - Anesthesia Eval Consult details Narrative: 47yo M for Colonoscopy ICU x 1 night for acute hypoxic failure requiring CPAP post op finger I&D 05/2022 [facility] Active Problems Active Problems: All Active Problems (Updated 08/22/23 @ 14:38 by Mahsa Yeager RN) Change in bowel habit (Acute) Chronic hepatitis C virus genotype 1 infection (Acute) Obesity, Class III, BMI 40-49.9 (morbid obesity) (Acute) Excessive daytime sleepiness (Acute) Loud snoring (Acute) Kidney cysts (Acute) Liver cyst (Acute) Hepatitis C (Acute) Diarrhea (Acute) Abdominal pain (Acute) Hepatitis C antibody positive in blood (Acute) Amputation of left middle finger (Acute) Elevated blood pressure reading (Acute) Amputation of left thumb (Acute) Septic joint of right hand (Acute) Dog bite of right thumb with infection (Acute) Past Medical History Medical History (Updated 08/24/23 @ 09:21 by Jocelyn Cavazos RN) Anesthesia Sleep apnea Hepatitis Dog bite History of COVID-19 Open fracture of right thumb Acute respiratory failure with hypoxemia Hypercholesteremia Family History Family history of problems with anesthesia: No Surgical History Surgical History (Updated 08/24/23 @ 09:32 by Jocelyn Cavazos RN) Hx of wisdom tooth extraction History of surgery on arm History of incision and drainage History of Problems with Anesthesia: No Social History Social History Household Members: Family Housing: House Do you presently have visiting nurse or other home services: No Comment: medicated with oxycodone, fentanyl, ketorolac, tylenol Patient Tobacco Use Status: Former Tobacco user Quit Date: 2017 e-Cigarette/Vaping Use: Never Used Substance Use Type: Marijuana Are you DNR?: No Advance Directives: No Advance Directives Information Provided: Yes Nutrition Risks: No Nutritional Risk service: No Current occupational status: employed Meds Allergies Allergy/AdvReac Type Severity Reaction Status Date / Time No Known Allergies Allergy Verified 06/22/23 09:41 Home Medications Medication Instructions Recorded Confirmed Last Taken Type atorvastatin 10 mg tablet 10 mg PO DAILY 03/15/23 Unknown History omeprazole 20 mg capsule,delayed 20 mg PO DAILY 03/15/23 Unknown History release tamsulosin 0.4 mg capsule 0.4 mg PO DAILY 04/26/23 Unknown History sertraline 50 mg tablet 50 mg PO DAILY 05/23/23 05/23/23 Unknown History Exam Height,Weight and Vital Signs: Height 5 ft 11 in Weight 131.995 kg Pertinent Lab Results Pertinent Lab Results: Laboratory Tests 06/04/22 03/15/23 07:37 16:25 WBC 6.5 12.3 H Hgb 13.0 L 14.9 Hct 42.0 47.9 Plt Count 214 307 Sodium 138 139 Potassium 3.9 4.2 Chloride 104 104 Carbon Dioxide 26 26 BUN 11 11 Creatinine 0.75 0.78 Assessment and Plan Assessment Anesthesia Assessment: Chart Reviewed Final Anesthetic Review Family History of Problems with Anesthesia: No History of Problems with Anesthesia: No Documented by User: Pilar Baez MD 08/24/23 09:58 [facility] Past Medical History Medical History (Updated 08/24/23 @ 09:21 by Jocelyn Cavazos RN) Anesthesia Sleep apnea Hepatitis Dog bite History of COVID-19 Open fracture of right thumb Acute respiratory failure with hypoxemia Hypercholesteremia Surgical History Surgical History (Updated 08/24/23 @ 09:32 by Jocelyn Cavazos RN) Hx of wisdom tooth extraction History of surgery on arm History of incision and drainage Social History Social History Household Members: Family Housing: House Do you presently have visiting nurse or other home services: No Comment: medicated with oxycodone, fentanyl, ketorolac, tylenol Patient Tobacco Use Status: Former Tobacco user Quit Date: 2017 e-Cigarette/Vaping Use: Never Used Substance Use Type: Marijuana Are you DNR?: No Advance Directives: No Advance Directives Information Provided: Yes Nutrition Risks: No Nutritional Risk service: No Current occupational status: employed Meds Allergies Allergy/AdvReac Type Severity Reaction Status Date / Time No Known Allergies Allergy Verified 06/22/23 09:41 Home Medications Medication Instructions Recorded Confirmed Last Taken Type atorvastatin 10 mg tablet 10 mg PO DAILY 03/15/23 Unknown History omeprazole 20 mg capsule,delayed 20 mg PO DAILY 03/15/23 Unknown History release tamsulosin 0.4 mg capsule 0.4 mg PO DAILY 04/26/23 Unknown History sertraline 50 mg tablet 50 mg PO DAILY 05/23/23 05/23/23 Unknown History Exam Airway Mallampati Class: III (caps) TM Dist: >3cm Neck ROM: Full Heart: rrr Lungs: ta Assessment and Plan Assessment Anesthesia Assessment: Anesthesia Plan Discussed Final Anesthetic Review NPO: Yes ASA Class: III Final Preanesthetic Review: No Changes in Pt Med Stat, Meds/Allgs Chart Reviewed and Consent Obtained/Reviewed Patient Risk: Intermediate Procedure Risk: Low Anesthetic Plan Anesthetic Plan: MAC: Disposition: Standard PACU
[2023-08-24 09:08] VITALS: BP 168/92; PULSE 70; RESP 18; TEMP 36.6; O2SAT 96
[2023-08-24 09:19] VITALS: BMI 39.4
[2023-08-24] MEDS: Lactated Ringers 1,000 ML 100 ML IVCONT (09:36)
--- NOTE | 2023-08-24 10:32 | P.HPSUR_ITS ---
Pre-Procedural Eval Section A Date of Service: 08/24/23 Section B Chief Complaint: Diarrhea, unspecified, Unspecified abdominal pain Relevant Family History (Specify if Yes): No Relevant Social History: Other (specify) (thc) Present Medications: see Short Stay Collaborative assessment Medical History: Significant History (Sleep apnea Hepatitis Dog bite History of COVID-19 Open fracture of right thumb Acute respiratory failure with hypoxemia Hypercholesteremia) History of Previous Operations: Relevant previous surgery/procedure and date(s) (Hx of wisdom tooth extraction History of surgery on arm History of incision and drainage) Allergies: Allergies Allergy/AdvReac Type Severity Reaction Status Date / Time No Known Allergies Allergy Verified 06/22/23 09:41 Review of Systems Sugical H&P ROS: Negative: Constitution, Cardiovascular, Respiratory, Neuro logical, Psychiatric, Hem-Onc, Allergic/Immunologic, Gastrointestinal, Genitourinary, Musculoskeletal, Integumentary, Endocrine and Eyes/Ears/Nose/Throat Exam Surgical H&P Exam: Normal: HEENT, Normal: Heart, Normal: Lungs, Normal: Extremities, Normal: Abdomen, Normal: Skin and Normal: Neurological Plan Diagnosis/Plan: Unchanged I have reviewed the history and physical and performed a pertinent physical examination on my patient. No changes have occurred unless specified. Time Spent With Patient Time: Total time managing care of this patient today ____ minutes.
--- NOTE | 2023-08-24 10:34 | W.PM.OPN ---
Operative Note Operative Note Date of Service: 08/24/23 Narrative: Operative Information Procedure Description: Colonoscopy Indication: screening Anesthesia: MAC COLONOSCOPY Instrument: Olympus variable stiffness pediatric scope 190L Colonoscopy Monitoring: Vital signs and clinical assessment, continuous EKG monitoring, Pulse oximetry, Carbon Dioxide monitoring and blood pressure monitoring were done throughout the procedure. Colon withdrawal time was 11 minutes. Procedure: The patient was placed in the left lateral decubitis position and pre-procedure medications were administered. After a digital rectal examination of the ano-rectum, the video colonoscope was inserted into the rectum and advanced through the colon to the cecum/TI. The colonoscope was slowly withdrawn in a retrograde panoramic fashion and the colon mucosa was carefully examined including a retroflexed view of the rectum. Findings and interventions are described below. Procedure Difficulty: easy Findings: Terminal Ileum-normal, bnx taken random colon bx taken Cecum:normal Ascending Colon: normal Transverse Colon -normal Descending Colon:normal Sigmoid Colon: several inverted diverticula seen Rectum: Retroflexion with small internal hemorrhoids, grade I, x 1 sessile polyp 5-6 mm removed with cold forceps and another sessile polyp 6-8 mm removed with cold snare Anorectum - normal Colon preparation: M[place]omb Bowel Preparation Scale Right colon; 2 Transverse colon: 2 Left colon; 2 (0 = Unprepared colon segment with mucosa not seen due to solid stool that cannot be cleared. 1 = Portion of mucosa of the colon segment seen, but other areas of the colon segment not well seen due to staining, residual stool and/or opaque liquid. 2 = Minor amount of residual staining, small fragments of stool and/or opaque liquid, but mucosa of colon segment seen well. 3 = Entire mucosa of colon segment seen well with no residual staining, small fragments of stool or opaque liquid) Impression and Post Procedure Diagnosis: polyps internal hemorrhoids diverticular disease Plan: High fiber diet leaflet Avoid straining at stool, epsom salts and sitz bath, anusol supps or cream Repeat Colonoscopy in 5-7 yrs if adenomatous, 10 yrs if hyperplastic or earlier if clinically indicated Above findings were reviewed with the patient and relevant handouts were provided if indicated.
[2023-08-24 11:04] VITALS: BP 126/65; PULSE 77; RESP 16; TEMP 36.4; O2SAT 96
[2023-08-24 11:19] VITALS: BP 120/56; PULSE 66; RESP 16; TEMP 37.2; O2SAT 97
== END 2023-08-24 11:59 | disposition home or self-care (01) ==
PROVIDERS: PCP Family Medicine; Visit Provider Internal Medicine Gastroenterology
PROC: 0DJD8ZZ Inspection of Lower Intestinal Tract, Via Natural or Artificial Opening Endoscopic (ICD-10-PCS; CPT 45378; principal; 2023-08-24 11:00)
DX: R10.9 Unspecified abdominal pain (principal); R19.7 Diarrhea, unspecified; K62.1 Rectal polyp; K57.30 Diverticulosis of large intestine without perforation or abscess without bleeding; K64.0 First degree hemorrhoids; J96.01 Acute respiratory failure with hypoxia; Z87.891 Personal history of nicotine dependence; E78.00 Pure hypercholesterolemia, unspecified; G47.33 Obstructive sleep apnea (adult) (pediatric); B19.9 Unspecified viral hepatitis without hepatic coma; Z86.16 Personal history of COVID-19
CPT/HCPCS: 45385; 45380; 88305; J2704

== ENCOUNTER → 2023-08-24 08:44 | Outpatient (BNV) | payer OTHER, SELFPAY | PROVIDERS: PCP Family Medicine; Visit Provider Internal Medicine Gastroenterology | DX: Z12.11 Encounter for screening for malignant neoplasm of colon (principal); D12.8 Benign neoplasm of rectum; K64.0 First degree hemorrhoids; K57.30 Diverticulosis of large intestine without perforation or abscess without bleeding | CPT/HCPCS: 45380; 45385 ==

== ENCOUNTER 2023-09-09 07:40 | Outpatient (AMB) | payer SELFPAY ==
--- NOTE | 2023-09-09 07:40 | MHC.OFFVIS ---
Intake Intake Visit Reasons: s/p colon Hector pt Intake Note: Micah presents in the office as a follow up colonoscopy. CC: He is not having any concerns since his procedure. 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 Allergies No Known Allergies Allergy (Verified 09/09/23 07:41) HPI s/p colon Hector pt HPI Details 47 yr old m being called for f/u Issues: 1/ Abdominal pain, resolved since been taking fiber no issues with bloating and asking if can increase Reviewed colonoscopy results, hyperplastic polyps removed, internal hemorrhoids, diverticulosis 2/ HCV: EVR noted, will need SVR check in about 2-3 months ExaM: good color, talking easily PLAN: 1/ Repeat colonoscopy 10 yrs or earlier if needed 2/ check SVR in 11/2022 f/u Dr Young in 4 months [facility] Medical History Anesthesia Sleep apnea Hepatitis Dog bite History of COVID-19 Open fracture of right thumb Acute respiratory failure with hypoxemia Hypercholesteremia Surgical History Hx of colonoscopy Hx of wisdom tooth extraction History of surgery on arm History of incision and drainage Social History Household Members: Family Housing: House Do you presently have visiting nurse or other home services: No Comment: medicated with oxycodone, fentanyl, ketorolac, tylenol Patient Tobacco Use Status: Former Tobacco user Quit Date: 2017 e-Cigarette/Vaping Use: Never Used Substance Use Type: Marijuana service: No Current occupational status: employed Assessment & Plan Assessment & Plan (1) Hepatitis C: Code(s): B19.20 - Unspecified viral hepatitis C without hepatic coma Plan: f/u Dr Young in 4 months Orders: Orders Hepatitis C Viral Load 2 Months B19.20 - Unspecified viral hepatitis C without hepatic coma Telehealth Telehealth Location of provider rendering services: practice address Location of patient: address on file Patient Identification confirmed using: Name, : Yes Telehealth method: video Patient verbally consented to treatment: Yes Patient verbally consented to billing insurance company: Yes Patient informed of any privacy concerns related to visit: Yes Minutes spent on Phone/Video with Pt.: 6 Coding Level of Care Code Tele Est Pt Level 3 (14643) Diagnoses Hepatitis C B19.20
== END 2023-09-09 10:41 | disposition home or self-care (01) ==
LOC: HO.HGI 07:40
PROVIDERS: PCP Family Medicine; Visit Provider Internal Medicine Gastroenterology
DX: B19.20 Unspecified viral hepatitis C without hepatic coma (principal)
CPT/HCPCS: 99213

== ENCOUNTER → 2023-09-09 07:40 | Outpatient (BNVA) | payer OTHER, SELFPAY | PROVIDERS: PCP Family Medicine; Visit Provider Internal Medicine Gastroenterology ==

== ENCOUNTER 2024-01-02 13:06 | Outpatient (REF) | payer OTHER, SELFPAY ==
[2024-01-05 19:38] LABS: HCV Log PCR <1.18 NOT DETECTED Log IU/mL (NOT DETECTED); HepC Viral Load <15 NOT DETECTED IU/mL (NOT DETECTED)
== END 2024-01-02 13:07 | disposition home or self-care (01) ==
LOC: HO.LAB 13:06
PROVIDERS: PCP Family Medicine; Visit Provider Internal Medicine Gastroenterology
DX: B19.20 Unspecified viral hepatitis C without hepatic coma (principal)
CPT/HCPCS: 36415; 87522

== ENCOUNTER 2025-01-02 10:00 | Outpatient (AMB) | payer OTHER, SELFPAY ==
[2025-01-02 10:12] VITALS: BP 120/84; PULSE 71; O2SAT 97; BMI 41.1
--- NOTE | 2025-01-02 10:12 | MHC.OFFVIS ---
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 Patient was last seen in April of 2023 by our former colleague Konstantin Alejandro NP. 06/15/2023 HST showed severe obstructive sleep apnea and nocturnal hypoxemia with AHI 84 per hour, O2 wilian 57% with SpO2 below 88% times 137 minutes of study time, and average SpO2 86%. Snoring was noted for 11% of study time. Weight and BMI at time of study was 290 lb and 40.4 respectively. Pt reports his sleep symptoms are increasingly bothersome. Pt reports he has snoring, throat inflammation, fragmented sleep, excessive daytime sleepiness. He notes he underwent a hand surgery- and the anesthesiologists advised him that he had s/s of severe sleep apnea. States he wakes up with good energy x's 30 minutes and then crashes. He is his 's primary caregiver, who has advanced ALS. He does have a h/o nasal fx from boxing as a teenager. 04/26/2023 initial HPI by Konstantin Alejandro VOCATIONAL EDUCATION PROFESSIONAL: 47 y/o male patient presents for new in-person visit for sleep consultation. Pt reports that he snores very loudly, and witnessed apnea events. He wakes up gasping and dreaming of drowning. He feels fatigue throughout the day, and easily falling asleep while he sitting in the chair. When he driving, he is very sleepy and needs to basting puller to sleep. He gained about 100 lb during the COVID pandemic. Sleep questionnaire: Have you ever been diagnosed with a sleep disorder? No. Have you ever had a sleep study in the past? No. Have you ever been treated for a sleep disorder? No. Do you take medications for a sleep disorder? No Do you snore? Yes. Do you wake up gasping at night? Yes. Do you have episodes of apneas? Yes. If yes, are they witnessed? Yes, by family members. Do you have episodes of nocturnal chest pain or dyspnea? Yes. Do you have difficulty initiating sleep? No. Do you have difficulty maintaining sleep? Yes, wakes up 4-6 times at night. Can't sleep longer than 2 hrs. Do you wake up tired? Yes. Do you have headaches upon awakening? No. Do you wake up with dry mouth or throat? Yes. Do you have GERD? Yes. Do you have nocturia? Yes. Do you have nocturnal leg cramps? Yes, sometimes. Do you have symptoms of restless legs? No. Do you act out your dreams? No. Sleep hygiene questionnaire: What is your usual sleep routine? Usual bedtime is at 10 pm; Usual wake up time is at 7-8 am. Do you take naps? Yes, almost every day for an hour. Is your sleep environment cool, dark, and quiet? Yes. Do you exercise? No. Do you take caffeine or other stimulants? Coffee in the morning, sometimes energy drink. Do you use electronics in bed? Yes. What is your work schedule? 8 am to 3 pm. Hypersomnolence questionnaire: Do you have daytime tiredness or fatigue? Yes. Do you easily fall asleep when inactive? Yes. Have you ever had episodes of sudden weakness? No. Have you ever had episodes of sudden weakness associated with strong emotions? No. PFSH Medical History Anesthesia Sleep apnea Hepatitis Dog bite History of COVID-19 Open fracture of right thumb Acute respiratory failure with hypoxemia Hypercholesteremia Surgical History Hx of colonoscopy Hx of wisdom tooth extraction History of surgery on arm History of incision and drainage Social History Household Members: Family Housing: House Do you presently have visiting nurse or other home services: No Comment: medicated with oxycodone, fentanyl, ketorolac, tylenol Patient Tobacco Use Status: Former Tobacco user e-Cigarette/Vaping Use: Never Used Substance Use Type: Marijuana service: No Current occupational status: employed Physical Exam Vital Signs: Last Vital Signs Pulse 71 01/02/25 10:12 BP 120/84 01/02/25 10:12 Pulse Ox 97 01/02/25 10:12 Oxygen Delivery Method Room Air 01/02/25 10:12 BMI result Body Mass Index 41.1 Const General: no acute distress Orientation/consciousness: patient oriented x3 HEENT Other: Mallampati stage IV Resp Effort & Inspection: normal respiratory effort and able to speak in complete sentences Neuro General: patient oriented x3 Psych Mental Status: mental status grossly normal Speech and movement: Clear speech present Attitude: cooperative Assessment & Plan Assessment & Plan (1) Severe obstructive sleep apnea: Code(s): G47.33 - Obstructive sleep apnea (adult) (pediatric) Category: Medical (2) Nocturnal hypoxemia: Code(s): G47.34 - Idiopathic sleep related nonobstructive alveolar hypoventilation Category: Medical (3) Obesity, Class III, BMI 40-49.9 (morbid obesity): Code(s): E66.01 - Morbid (severe) obesity due to excess calories Category: Medical Plan Reviewed previous HST results- severe JULIAN w/ nocturnal hypoxemia Pt is advised to undergo in-lab PSG w/ ETCO2 and split night study fir AHI > 25.hr. Pt requests [facility] home care. Will request ENT consult as pt alos has h/o nasal fractures. Pt advised to avoid drowsy/sleepy driving. Consider Zepbound tx or referal to weight managent. Orders: Orders RT PSG in-lab sleep study 01/02/25 G47.33 - Obstructive sleep apnea (adult) (pediatric), G47.34 - Idiopathic sleep related nonobstructive alveolar hypoventilation Referrals Ear/Nose/Throat Referral G47.33 - Obstructive sleep apnea (adult) (pediatric), G47.34 - Idiopathic sleep related nonobstructive alveolar hypoventilation, Z87.81 - Personal history of (healed) traumatic fracture Medications: Discontinued sofosbuvir-velpatasvir 400-100 mg (Epclusa) Discontinued Reason: Patient Completed Course 1 tab PO DAILY 12 weeks 84 tabs 0RF Scribe Plan - Not visible on output: [facility] Coding Level of Care Code Est Pt Level 3 (41693) Diagnoses Severe obstructive sleep apnea G47.33 Nocturnal hypoxemia G47.34 Obesity, Class III, BMI 40-49.9 (morbid obesity) E66.01 [place] Sleepiness Scale Questions Sitting and reading: high chance of dozing Watching TV: moderate chance of dozing Sitting inactive in a theater, movie etc.: would never doze As a passenger in a car for an hour without break: high chance of dozing Lying down in the afternoon when circumstances permit: high chance of dozing Sitting and talking to someone: would never doze Sitting quietly after lunch without alcohol: high chance of dozing In a car, while stopped for a few minutes in the traffic: high chance of dozing ESS < 10: normal, ESS > 12: pathologic: 17
--- OUTSIDE RECORDS SUMMARY | 2025-01-02 10:59 | XMS_ITS | Continuity of Care Document ---
Author Organization [facility] lt Address [address] [place] [address]- Care Team Providers Care Licensed Clinical Social Worker Name Role Phone Zari Eddy MD Primary Care Physician Encounter [facility] [id number] Date(s): 11/28/24 - 12/28/24 [facility] Adult [address] [place] [address]- Encounter Type: Triage Allergies, Adverse Reactions, Alerts No Known Allergies Immunizations Given and Recorded Vaccine Date Status Refusal Reason Rabies vaccine,purified chick embryo 05/14/22 Ubaldo rded Rabies vaccine,purified chick embryo 05/06/22 Ubaldo rded tetanus/diphtheria/pertussis, acel(Tdap) 05/06/22 Recorded Medications atorvastatin 10 mg oral tablet 1 tablet = 10 mg, By Mouth, Daily, # 90 tablet, 3 Refills, Maintenance, 08/11/24 3:54:00 AM [facility], Partial fill upon patient request if the prescription is for a schedule II opioid drug., 178, cm, 06/19/24 8:15:00 EDT, Height Start Date: 08/11/24 Status: Ordered Quantity: 90.0 Unit: tablet Repeat number: 4 betamethasone-clotrimazole 0.05%-1% topical cream 1 application, Topically, 2 times a day, FOR 2 WEEKS repeat as needed, # 15 Gm, 1 Refills, Maintenance, 06/19/24 8:21:00 AM EDT, Cream, [facility] # [facility], Partial fill upon patient request if the prescription is for a schedule II opioid drug., 1 application Topically 2 times a day,Instr:FOR 2 WEEKS repeat as needed, 178, cm, 06/19/24 8:15:00 EDT, Height Start Date: 06/19/24 Status: Ordered Quantity: 15.0 Unit: g Repeat number: 2 Indication: Tinea corporis omeprazole 20 mg oral enteric coated capsule 1 capsule = 20 mg, By Mouth, Daily, # 90 capsule, 1 Refills, Maintenance, 11/28/24 10:46:00 AM EDT, EC Capsule, [facility] # [facility], Partial fill upon patient request if the prescription is for a schedule II opioid drug., 178, cm, 06/19/24 8:15:00 EDT, Height Start Date: 11/28/24 Stop Date: 05/27/25 Status: Ordered Quantity: 90.0 Unit: capsule Repeat number: 2 sertraline 100 mg oral tablet 1 tablet = 100 mg, By Mouth, Daily, increasing dose, # 90 tablet, 2 Refills, Maintenance, 06/19/24 8:22:00 AM EDT, [facility] # [facility], Partial fill upon patient request if the prescription is for a schedule II opioid drug., 178, cm, 06/19/24 8:15:00 EDT, Height Start Date: 06/19/24 Status: Ordered Quantity: 90.0 Unit: tablet Repeat number: 3 Problem List Condition Confirmation Course Effective Dates Status H ealth Status Informant Adjustment disorder Confirmed Active Change in bowel movement Confirmed Active Diverticulosis Confirmed Active GERD (gastroesophageal reflux disease) Confirmed Active Tarsal tunnel syndrome of left side Confirmed Active Mixed hyperlipidemia Confirmed Active JULIAN (obstructive sleep apnea) Confirmed Active Physical exam Confirmed Active Colon polyp 1 Confirmed Active Severe obesity Confirmed Active Stress due to illness of family member Confirmed Active Fatty liver Confirmed Active Tinea corporis Confirmed Active Benign prostatic hyperplasia (BPH) with urinary urgency Confirmed Active Hepatitis C Confirmed Active 1Dr Tuyyab Bettie colonoscopy on 08/24/2023 Path pending Social History Social History Type Response Smoking Status Former smoker, quit more than 30 days ago; Other: quit 2015; Tobacco use times per day: smoked since age 13 3/4 ppd; Started at age: 13; entered on: 04/20/23 Sex Sex Representation Male (finding) Patient Care team information Care Team Personnel Name: Zari Eddy MD Position: S Physician - Primary Care Member Role: PCP Address: [address] [place] [id number] [place] Care Team Related Persons Name: DALLAS STYLES Name: CARO WOODSON Insurance Providers Guarantor name: CHARLIE WOODSON [facility] Plan Information #: 1 Payer: [facility] Member Number: NA Policy Number: NA Group Number: NA
== END 2025-01-02 10:56 | disposition home or self-care (01) ==
LOC: HO.HSMS 10:00
PROVIDERS: PCP Family Medicine; Visit Provider Nurse Practitioner Family
DX: G47.33 Obstructive sleep apnea (adult) (pediatric) (principal); G47.34 Idiopathic sleep related nonobstructive alveolar hypoventilation; E66.01 Morbid (severe) obesity due to excess calories
CPT/HCPCS: 99213

== ENCOUNTER → 2025-01-02 10:00 | Outpatient (BNVA) | payer OTHER, SELFPAY | PROVIDERS: PCP Family Medicine; Visit Provider Nurse Practitioner Family | DX: G47.33 Obstructive sleep apnea (adult) (pediatric) (principal); G47.34 Idiopathic sleep related nonobstructive alveolar hypoventilation; E66.01 Morbid (severe) obesity due to excess calories; Z87.81 Personal history of (healed) traumatic fracture; Z68.41 Body mass index [BMI] 40.0-44.9, adult | CPT/HCPCS: 99212 ==

== ENCOUNTER → 2025-01-25 20:30 | Outpatient (REF) | payer OTHER, SELFPAY | LOC: HO.SL 20:30 | PROVIDERS: Visit Provider Nurse Practitioner Family | DX: G47.33 Obstructive sleep apnea (adult) (pediatric) (principal); G47.34 Idiopathic sleep related nonobstructive alveolar hypoventilation | CPT/HCPCS: 95810 ==

== ENCOUNTER → 2025-01-25 21:36 | Outpatient (BNV) | payer OTHER, SELFPAY | PROVIDERS: Visit Provider Psychiatry & Neurology Neurology | DX: G47.33 Obstructive sleep apnea (adult) (pediatric) (principal) | CPT/HCPCS: 95810 ==

== ENCOUNTER → 2025-07-07 19:30 | Outpatient (REF) | payer OTHER, SELFPAY | LOC: HO.SL 19:30 | PROVIDERS: PCP Physician Assistant Medical; Visit Provider Nurse Practitioner Family | DX: G47.33 Obstructive sleep apnea (adult) (pediatric) (principal); G47.34 Idiopathic sleep related nonobstructive alveolar hypoventilation | CPT/HCPCS: 95811 ==

== ENCOUNTER → 2025-07-07 21:45 | Outpatient (BNV) | payer OTHER, SELFPAY | PROVIDERS: PCP Physician Assistant Medical; Visit Provider Psychiatry & Neurology Neurology | DX: G47.33 Obstructive sleep apnea (adult) (pediatric) (principal) | CPT/HCPCS: 95811 ==